=== PATIENT | male | born 1975 | race Caucasian/White ===

== ENCOUNTER 2017-12-03 06:23 | Emergency (ER) | payer OTHER ==
[~2017-12-03] VITALS: Ht 170.2 cm; Wt 62.1 kg
[~2017-12-03 06:23] MED LIST: ACET325 PO; ALPR.5 PO; AMIT10; AMIT50 PO; AMLO10 PO; AMLO5 PO; BELPHEELB PO; BELPHEER PO; BUDESONIDE EC3 MG PO; CARI350 PO; CEPH500 PO; CIPRO500 MG PO; Cleocin HCl300 MG PO; DONNATAL PO; DRON5 PO; ERGO400 PO; Flagyl500 MG PO; Guaifenesin Dm118 ML PO; HYDACE5 PO; HYDMOR2 PO; HYDMOR4 PO; HYDMOR8 PO; Keflex500 MG PO; LISI20 PO; LORA1 PO; LOSA50 PO; MECL25 PO; METR500 PO; MIRT15 PO; NEBI10 PO; Norco 5-325 Ta1 EACH PO; OMEP10ER PO; ONDA4; ONDA4ODT PO; OPANA 10 MG PO; OPANA ER10 MG PO; OXYACE5T PO; OXYMORPHONE HCL10 MG PO; PRED20 PO; PROM25 PO; PROP10 PO; Percocet 5-3251 EACH PO; Prednisone20 MG PO; Prednisone50 MG PO; Pseudoephedrine30 MG PO; QUET25 PO; ROXICODONE5 MG PO; RXHYDMOR2 PO; RXOXYACE PO; Robaxin500 MG PO; TRAM50 PO; TRAZ50 PO; VALS80; [UNRECOGNIZED DRUG - OTHER] PO
[2017-12-03] MEDS ORDERED: OXYMORPHONE HCL5 M1 PO (06:41)
[2017-12-03 06:59] LABS: BASOPHILS ABSOLUTE AUTO 0.05 K/mm3 (0.00-0.23); BASOPHILS PERCENT AUTO 1 % (0-2); EOSINOPHILS ABSOLUTE AUTO 0.84 K/mm3 (0.00-0.68); EOSINOPHILS PERCENT AUTO 8 % (0-6); Hematocrit 31.3 % (37.0-53.0); Hemoglobin 9.1 g/dL (13.5-17.5); IMMATURE GRAN ABSOLUTE AUTO 0.03 K/mm3 (0.00-0.10); IMMATURE GRAN PERCENT AUTO 0 % (0-1); LYMPHOCYTES ABSOLUTE AUTO 2.16 K/mm3 (0.84-5.20); LYMPHOCYTES PERCENT AUTO 21 % (21-46); MONOCYTES ABSOLUTE AUTO 0.81 K/mm3 (0.16-1.47); MONOCYTES PERCENT AUTO 8 % (4-13); Mean Corpuscular HGB 23.8 pg (26.0-34.0); Mean Corpuscular HGB Conc 29.1 g/dL (31.5-36.5); Mean Corpuscular Volume 82 fL (80-100); Mean Platelet Volume 9.3 fL (9.1-12.4); NEUTROPHILS ABSOLUTE AUTO 6.56 K/mm3 (1.96-9.15); NEUTROPHILS PERCENT AUTO 63 % (41-73); Platelet Count 344 K/mm3 (150-400); RDW Coefficient Variation 24.4 % (11.7-14.2); RDW Standard Deviation 69.8 fL (35.1-46.3); Red Blood Cell Count 3.83 M/mm3 (4.30-5.90); White Blood Cell Count 10.45 K/mm3 (4.00-11.30)
[2017-12-03 07:14] LABS: Alanine Aminotransfer (ALT/SGP 17 U/L (12-78); Albumin, Blood 2.4 g/dL (3.4-5.0); Albumin/Globulin Ratio 0.8 (0.8-1.8); Alk Phos 66 U/L (50-136); Anion Gap 6 mmol/L (6-16); Aspartate Aminotrans (AST/SGOT 11 U/L (12-37); Bilirubin, Total 0.3 mg/dL (0.1-1.0); Blood Urea Nitrogen 13 mg/dL (8-24); Bun/Creatinine Ratio 21.8 (12.0-20.0); CO2, Blood 27 mmol/L (21-32); Calcium, Blood 7.3 mg/dL (8.5-10.1); Chloride, Blood 114 mmol/L (98-108); Globulin, Blood 2.9 g/dL (2.2-4.0); Glomerular Filtration Rate >60 (60-); Glucose, Blood 91 mg/dL (70-99); Potassium, Blood 3.6 mmol/L (3.5-5.5); Sodium, Blood 147 mmol/L (136-145); Total Protein, Blood 5.3 g/dL (6.4-8.2)
[2018-09-14] MEDS ORDERED: ALBU90OI61 INH (17:58)
[2018-09-14] MEDS ORDERED: PRED20 PO (17:58)
[2018-09-14] MEDS ORDERED: BENZ100A PO (17:58)
[2018-10-12] MEDS ORDERED: Vibramycin100 MG PO (20:52)
== END 2017-12-03 07:42 | disposition home or self-care (01) ==
LOC: ER 06:23
PROVIDERS: Emergency Medicine
DX: K50.911 Crohn's disease, unspecified, with rectal bleeding (principal); D64.9 Anemia, unspecified; Z88.2 Allergy status to sulfonamides; Z88.8 Allergy status to other drugs, medicaments and biological substances; Z91.09 Other allergy status, other than to drugs and biological substances; Z88.6 Allergy status to analgesic agent; Z79.899 Other long term (current) drug therapy; Z87.891 Personal history of nicotine dependence
CPT/HCPCS: 36415; 80053; 85025; 86850; 86900; 86901; 93005; 93010; 99283

== ENCOUNTER 2017-12-05 16:57 | Inpatient (IN) | payer OTHER ==
[~2017-12-05] VITALS: Ht 170.2 cm; Wt 58.6 kg
[~2017-12-05 16:57] MED LIST changes: +OXYMORPHONE HCL5 M1 PO
[2017-12-05] MEDS ORDERED: CYAN1000I IM (17:06)
[2017-12-05 17:45] LABS: BASOPHILS ABSOLUTE AUTO 0.07 K/mm3 (0.00-0.23); BASOPHILS PERCENT AUTO 1 % (0-2); EOSINOPHILS ABSOLUTE AUTO 0.23 K/mm3 (0.00-0.68); EOSINOPHILS PERCENT AUTO 2 % (0-6); Hematocrit 37.3 % (37.0-53.0); Hemoglobin 11.4 g/dL (13.5-17.5); IMMATURE GRAN ABSOLUTE AUTO 0.03 K/mm3 (0.00-0.10); IMMATURE GRAN PERCENT AUTO 0 % (0-1); LYMPHOCYTES ABSOLUTE AUTO 1.47 K/mm3 (0.84-5.20); LYMPHOCYTES PERCENT AUTO 14 % (21-46); MONOCYTES ABSOLUTE AUTO 0.61 K/mm3 (0.16-1.47); MONOCYTES PERCENT AUTO 6 % (4-13); Mean Corpuscular HGB 24.2 pg (26.0-34.0); Mean Corpuscular HGB Conc 30.6 g/dL (31.5-36.5); Mean Platelet Volume 9.7 fL (9.1-12.4); NEUTROPHILS ABSOLUTE AUTO 8.23 K/mm3 (1.96-9.15); NEUTROPHILS PERCENT AUTO 77 % (41-73); Platelet Count 491 K/mm3 (150-400); RDW Coefficient Variation 25.6 % (11.7-14.2); RDW Standard Deviation 72.3 fL (35.1-46.3); Red Blood Cell Count 4.72 M/mm3 (4.30-5.90); White Blood Cell Count 10.64 K/mm3 (4.00-11.30)
[2017-12-05 17:47] LABS: Mean Corpuscular Volume 79 fL (80-100)
[2017-12-05 17:55] LABS: Alanine Aminotransfer (ALT/SGP 23 U/L (12-78); Albumin, Blood 2.8 g/dL (3.4-5.0); Albumin/Globulin Ratio 0.8 (0.8-1.8); Alk Phos 98 U/L (50-136); Anion Gap 6 mmol/L (6-16); Aspartate Aminotrans (AST/SGOT 15 U/L (12-37); Bilirubin, Total 0.2 mg/dL (0.1-1.0); Blood Urea Nitrogen 10 mg/dL (8-24); Bun/Creatinine Ratio 16.9 (12.0-20.0); CO2, Blood 28 mmol/L (21-32); Calcium, Blood 8.3 mg/dL (8.5-10.1); Chloride, Blood 106 mmol/L (98-108); Creatinine, Blood 0.59 mg/dL (0.60-1.20); Globulin, Blood 3.5 g/dL (2.2-4.0); Glomerular Filtration Rate >60 (60-); Glucose, Blood 108 mg/dL (70-99); Potassium, Blood 3.7 mmol/L (3.5-5.5); Sodium, Blood 140 mmol/L (136-145); Total Protein, Blood 6.3 g/dL (6.4-8.2)
[2017-12-05 18:23] LABS: Source, Urine Clean Catch
[2017-12-05 18:29] LABS: Bilirubin, Urine Neg (Neg); Blood, Urine Neg (Neg); Glucose Qualitative, Urine Neg (Neg); Ketones, Urine Neg (Neg); Leukocyte Esterase, Urine Neg (Neg); Nitrite, Urine Neg (Neg); Protein, Urine Neg (Neg); Specific Gravity, Urine 1.025 (1.003-1.022); Urobilinogen, Urine NORM (Normal)
[2017-12-05 18:58] LABS: Appearance, Urine Clear (Clear); Color, Urine Yellow (P-Yellow)
[2017-12-06 05:04] LABS: BASOPHILS ABSOLUTE AUTO 0.04 K/mm3 (0.00-0.23); BASOPHILS PERCENT AUTO 1 % (0-2); EOSINOPHILS ABSOLUTE AUTO 0.24 K/mm3 (0.00-0.68); EOSINOPHILS PERCENT AUTO 3 % (0-6); Hematocrit 33.8 % (37.0-53.0); Hemoglobin 10.1 g/dL (13.5-17.5); IMMATURE GRAN ABSOLUTE AUTO 0.01 K/mm3 (0.00-0.10); IMMATURE GRAN PERCENT AUTO 0 % (0-1); LYMPHOCYTES ABSOLUTE AUTO 1.63 K/mm3 (0.84-5.20); LYMPHOCYTES PERCENT AUTO 19 % (21-46); MONOCYTES ABSOLUTE AUTO 0.68 K/mm3 (0.16-1.47); MONOCYTES PERCENT AUTO 8 % (4-13); Mean Corpuscular HGB 24.2 pg (26.0-34.0); Mean Corpuscular HGB Conc 29.9 g/dL (31.5-36.5); Mean Corpuscular Volume 81 fL (80-100); Mean Platelet Volume 9.4 fL (9.1-12.4); NEUTROPHILS ABSOLUTE AUTO 6.04 K/mm3 (1.96-9.15); NEUTROPHILS PERCENT AUTO 70 % (41-73); Platelet Count 371 K/mm3 (150-400); RDW Coefficient Variation 25.7 % (11.7-14.2); RDW Standard Deviation 73.5 fL (35.1-46.3); Red Blood Cell Count 4.18 M/mm3 (4.30-5.90); White Blood Cell Count 8.64 K/mm3 (4.00-11.30)
[2017-12-06] MEDS ORDERED: Inderal 20 mg T20 MG PO (05:19)
[2017-12-06 05:28] LABS: Alanine Aminotransfer (ALT/SGP 16 U/L (12-78); Albumin, Blood 2.3 g/dL (3.4-5.0); Albumin/Globulin Ratio 0.8 (0.8-1.8); Alk Phos 82 U/L (50-136); Anion Gap 5 mmol/L (6-16); Aspartate Aminotrans (AST/SGOT 10 U/L (12-37); Bilirubin, Total 0.2 mg/dL (0.1-1.0); Blood Urea Nitrogen 7 mg/dL (8-24); Bun/Creatinine Ratio 13.1 (12.0-20.0); CO2, Blood 26 mmol/L (21-32); Calcium, Blood 7.6 mg/dL (8.5-10.1); Chloride, Blood 110 mmol/L (98-108); Creatinine, Blood 0.54 mg/dL (0.60-1.20); Glomerular Filtration Rate >60 (60-); Glucose, Blood 87 mg/dL (70-99); Potassium, Blood 3.6 mmol/L (3.5-5.5); Sodium, Blood 141 mmol/L (136-145); Total Protein, Blood 5.3 g/dL (6.4-8.2)
[2017-12-06] MEDS ORDERED: VALS80 PO (14:57)
[2017-12-07 04:59] LABS: Hematocrit 37.1 % (37.0-53.0); Hemoglobin 11.1 g/dL (13.5-17.5); Mean Corpuscular HGB 24.1 pg (26.0-34.0); Mean Corpuscular HGB Conc 29.9 g/dL (31.5-36.5); Mean Corpuscular Volume 81 fL (80-100); Mean Platelet Volume 9.8 fL (9.1-12.4); Platelet Count 411 K/mm3 (150-400); RDW Coefficient Variation 25.3 % (11.7-14.2); RDW Standard Deviation 71.9 fL (35.1-46.3)
[2017-12-07 05:14] LABS: Anion Gap 7 mmol/L (6-16); Blood Urea Nitrogen 9 mg/dL (8-24); Bun/Creatinine Ratio 17.4 (12.0-20.0); CO2, Blood 27 mmol/L (21-32); Calcium, Blood 7.8 mg/dL (8.5-10.1); Chloride, Blood 107 mmol/L (98-108); Creatinine, Blood 0.52 mg/dL (0.60-1.20); Glomerular Filtration Rate >60 (60-); Glucose, Blood 116 mg/dL (70-99); Potassium, Blood 4.3 mmol/L (3.5-5.5); Sodium, Blood 141 mmol/L (136-145)
[2017-12-08 04:50] LABS: Hematocrit 40.6 % (37.0-53.0); Hemoglobin 12.4 g/dL (13.5-17.5); Mean Corpuscular HGB 24.1 pg (26.0-34.0); Mean Corpuscular HGB Conc 30.5 g/dL (31.5-36.5); Mean Corpuscular Volume 79 fL (80-100); Mean Platelet Volume 9.9 fL (9.1-12.4); Platelet Count 497 K/mm3 (150-400); RDW Coefficient Variation 25.9 % (11.7-14.2); RDW Standard Deviation 72.7 fL (35.1-46.3); Red Blood Cell Count 5.15 M/mm3 (4.30-5.90)
[2017-12-08 05:04] LABS: Anion Gap 6 mmol/L (6-16); Blood Urea Nitrogen 16 mg/dL (8-24); Bun/Creatinine Ratio 22.9 (12.0-20.0); CO2, Blood 27 mmol/L (21-32); Calcium, Blood 8.4 mg/dL (8.5-10.1); Chloride, Blood 106 mmol/L (98-108); Glomerular Filtration Rate >60 (60-); Glucose, Blood 137 mg/dL (70-99); Potassium, Blood 4.5 mmol/L (3.5-5.5); Sodium, Blood 139 mmol/L (136-145)
[2017-12-10 04:44] LABS: Hematocrit 36.8 % (37.0-53.0); Hemoglobin 11.1 g/dL (13.5-17.5); Mean Corpuscular HGB 24.3 pg (26.0-34.0); Mean Corpuscular HGB Conc 30.2 g/dL (31.5-36.5); Mean Corpuscular Volume 81 fL (80-100); Mean Platelet Volume 9.5 fL (9.1-12.4); Platelet Count 358 K/mm3 (150-400); RDW Coefficient Variation 26.2 % (11.7-14.2); RDW Standard Deviation 74.4 fL (35.1-46.3); Red Blood Cell Count 4.57 M/mm3 (4.30-5.90); White Blood Cell Count 9.72 K/mm3 (4.00-11.30)
[2017-12-10 05:22] LABS: Anion Gap 5 mmol/L (6-16); Blood Urea Nitrogen 12 mg/dL (8-24); Bun/Creatinine Ratio 21.3 (12.0-20.0); CO2, Blood 31 mmol/L (21-32); Calcium, Blood 8.2 mg/dL (8.5-10.1); Chloride, Blood 106 mmol/L (98-108); Creatinine, Blood 0.56 mg/dL (0.60-1.20); Glomerular Filtration Rate >60 (60-); Glucose, Blood 114 mg/dL (70-99); Potassium, Blood 4.5 mmol/L (3.5-5.5); Sodium, Blood 142 mmol/L (136-145)
[2017-12-14 05:18] LABS: Hemoglobin 10.9 g/dL (13.5-17.5); Mean Corpuscular HGB 24.6 pg (26.0-34.0); Mean Corpuscular HGB Conc 30.3 g/dL (31.5-36.5); Mean Corpuscular Volume 81 fL (80-100); Mean Platelet Volume 10.2 fL (9.1-12.4); Platelet Count 427 K/mm3 (150-400); RDW Coefficient Variation 27.8 % (11.7-14.2); RDW Standard Deviation 76.6 fL (35.1-46.3); Red Blood Cell Count 4.43 M/mm3 (4.30-5.90); White Blood Cell Count 13.45 K/mm3 (4.00-11.30)
[2017-12-14 05:35] LABS: Anion Gap 7 mmol/L (6-16); Blood Urea Nitrogen 21 mg/dL (8-24); CO2, Blood 32 mmol/L (21-32); Calcium, Blood 8.6 mg/dL (8.5-10.1); Chloride, Blood 102 mmol/L (98-108); Creatinine, Blood 0.54 mg/dL (0.60-1.20); Glomerular Filtration Rate >60 (60-); Glucose, Blood 119 mg/dL (70-99); Magnesium, Blood 2.7 mg/dL (1.6-2.4); Phosphorus, Blood 3.5 mg/dL (2.5-4.9); Potassium, Blood 3.6 mmol/L (3.5-5.5); Sodium, Blood 141 mmol/L (136-145)
[2017-12-14] MEDS ORDERED: HYDMOR4 PO (10:28)
[2017-12-14] MEDS ORDERED: ACET325 PO (10:29)
[2017-12-14] MEDS ORDERED: PRED10 PO (10:31)
[2017-12-14] MEDS ORDERED: PANT40 PO (10:31)
[2018-09-14] MEDS ORDERED: PRED20 PO (17:58)
[2018-09-14] MEDS ORDERED: BENZ100A PO (17:58)
[2018-09-14] MEDS ORDERED: ALBU90OI61 INH (17:58)
[2018-10-12] MEDS ORDERED: Vibramycin100 MG PO (20:52)
== END 2017-12-14 11:18 | disposition home or self-care (01) | DRG 387 ==
LOC: ER 16:57 → MEDS 21:26 → ERHOLD 21:26 → MEDS 12-06 13:40 → ENPENDDIS 12-14 09:50 → MEDS 12-14 11:18
PROVIDERS: Emergency Medicine; Internal Medicine
PROC: 3E0234Z Introduction of Serum, Toxoid and Vaccine into Muscle, Percutaneous Approach (ICD-10-PCS; 2017-12-06)
PROC: 3E0336Z Introduction of Nutritional Substance into Peripheral Vein, Percutaneous Approach (ICD-10-PCS; principal; 2017-12-10)
DX: K50.80 Crohn's disease of both small and large intestine without complications (principal); D50.9 Iron deficiency anemia, unspecified; D63.8 Anemia in other chronic diseases classified elsewhere; E86.0 Dehydration; G89.29 Other chronic pain; Z23 Encounter for immunization; I10 Essential (primary) hypertension; K21.9 Gastro-esophageal reflux disease without esophagitis; F41.9 Anxiety disorder, unspecified; D72.829 Elevated white blood cell count, unspecified; T38.0X5A Adverse effect of glucocorticoids and synthetic analogues, initial encounter; K64.9 Unspecified hemorrhoids
CPT/HCPCS: 36415; 74176; 80048; 80053; 81003; 82947; 83690; 83735; 84100; 84145; 85025; 85027; 85651; 86140; 96372; 96374; 96375; 96376; 99285; J0744; J1170; J1650; J2405; J2920; J3010; J3420; J7030; Q2038

== ENCOUNTER 2018-07-01 21:21 | Emergency (ER) | payer OTHER ==
[~2018-07-01] VITALS: Ht 170.2 cm; Wt 59.0 kg
[~2018-07-01 21:21] MED LIST changes: +CYAN1000I IM; +Inderal 20 mg T20 MG PO; +PANT40 PO; +PRED10 PO; +VALS80 PO
[2018-07-01] MEDS ORDERED: Inderal40 MG (22:38)
[2018-07-01] MEDS ORDERED: ALPR.5 PO (22:38)
[2018-07-01] MEDS ORDERED: OXYMORPHONE HCL5 MG PO (22:39)
[2018-07-01] MEDS ORDERED: DRON5 PO (22:39)
[2018-07-01] MEDS ORDERED: Prednisone20 MG PO (23:45)
[2018-07-01] MEDS ORDERED: Permethrin60 GM TOP (23:49)
== END 2018-07-01 23:53 | disposition home or self-care (01) ==
LOC: ER 21:21
DX: R21 Rash and other nonspecific skin eruption (principal); G43.909 Migraine, unspecified, not intractable, without status migrainosus; I10 Essential (primary) hypertension; K21.9 Gastro-esophageal reflux disease without esophagitis; D64.9 Anemia, unspecified; Z88.8 Allergy status to other drugs, medicaments and biological substances; Z88.2 Allergy status to sulfonamides; Z88.6 Allergy status to analgesic agent; Z79.899 Other long term (current) drug therapy; Z87.891 Personal history of nicotine dependence
CPT/HCPCS: 99283

== ENCOUNTER 2018-07-13 17:14 | Emergency (ER) | payer OTHER ==
[~2018-07-13] VITALS: Ht 170.2 cm; Wt 61.2 kg
[~2018-07-13 17:14] MED LIST changes: +Inderal40 MG; +OXYMORPHONE HCL5 MG PO; +Permethrin60 GM TOP
== END 2018-07-14 00:41 | disposition home or self-care (01) ==
LOC: ER 17:14
DX: R51 Headache (principal); I10 Essential (primary) hypertension; K21.9 Gastro-esophageal reflux disease without esophagitis; D64.9 Anemia, unspecified; Z88.8 Allergy status to other drugs, medicaments and biological substances; Z88.2 Allergy status to sulfonamides; Z91.048 Other nonmedicinal substance allergy status; Z88.5 Allergy status to narcotic agent; Z79.899 Other long term (current) drug therapy; Z87.891 Personal history of nicotine dependence
CPT/HCPCS: 96374; 96375; 99283-25; J0780; J1100; J1200

== ENCOUNTER → 2018-12-08 | Outpatient (CLI) | payer OTHER ==
[~2018-12-08] MED LIST changes: +ALBU90OI61 INH; +BENZ100A PO; +Vibramycin100 MG PO
[2018-12-08 18:28] LABS: U Benzodiazapine Screen DETECTED; U Cannabinoids Screen DETECTED; U Opiates Screen DETECTED; U Oxycodone Screen DETECTED
[2018-12-08 18:29] LABS: U Amphetamine Screen Not Detected; U Barbituate Screen Not Detected; U Buprenorphine Screen Not Detected; U Cocaine Screen Not Detected; U Methadone Screen Not Detected; U Methamphetamine Screen Not Detected; U Phencyclidine Screen Not Detected; U Propoxyphene Screen Not Detected
== END | disposition home or self-care (01) ==
LOC: LAB 16:06 → LAB SHORT 16:06
PROVIDERS: Internal Medicine Hematology & Oncology
DX: F11.20 Opioid dependence, uncomplicated (principal)
CPT/HCPCS: G0480

== ENCOUNTER 2019-02-14 17:01 | Emergency (ER) | payer OTHER ==
[~2019-02-14] VITALS: Ht 170.2 cm; Wt 56.7 kg
[2019-02-14 17:32] LABS: BASOPHILS ABSOLUTE AUTO 0.04 K/mm3 (0.00-0.23); BASOPHILS PERCENT AUTO 0 % (0-2); EOSINOPHILS ABSOLUTE AUTO 0.21 K/mm3 (0.00-0.68); EOSINOPHILS PERCENT AUTO 2 % (0-6); Hematocrit 39.1 % (37.0-53.0); Hemoglobin 11.4 g/dL (13.5-17.5); IMMATURE GRAN ABSOLUTE AUTO 0.05 K/mm3 (0.00-0.10); IMMATURE GRAN PERCENT AUTO 1 % (0-1); LYMPHOCYTES ABSOLUTE AUTO 1.66 K/mm3 (0.84-5.20); LYMPHOCYTES PERCENT AUTO 16 % (21-46); MONOCYTES ABSOLUTE AUTO 0.65 K/mm3 (0.16-1.47); MONOCYTES PERCENT AUTO 6 % (4-13); Mean Corpuscular HGB 24.4 pg (26.0-34.0); Mean Corpuscular HGB Conc 29.2 g/dL (31.5-36.5); Mean Corpuscular Volume 84 fL (80-100); Mean Platelet Volume 9.1 fL (9.1-12.4); NEUTROPHILS ABSOLUTE AUTO 7.96 K/mm3 (1.96-9.15); NEUTROPHILS PERCENT AUTO 75 % (41-73); Platelet Count 470 K/mm3 (150-400); RDW Coefficient Variation 24.3 % (11.7-14.2); RDW Standard Deviation 72.5 fL (35.1-46.3); Red Blood Cell Count 4.67 M/mm3 (4.30-5.90); White Blood Cell Count 10.57 K/mm3 (4.00-11.30)
[2019-02-14 18:03] LABS: Alanine Aminotransfer (ALT/SGP 17 U/L (12-78); Albumin, Blood 2.7 g/dL (3.4-5.0); Albumin/Globulin Ratio 0.8 (0.8-1.8); Alk Phos 75 U/L (50-136); Anion Gap 4 mmol/L (6-16); Aspartate Aminotrans (AST/SGOT 14 U/L (12-37); Bilirubin, Total <0.1 mg/dL (0.1-1.0); Blood Urea Nitrogen 9 mg/dL (8-24); Bun/Creatinine Ratio 11.2 (12.0-20.0); CO2, Blood 30 mmol/L (21-32); Calcium, Blood 8.2 mg/dL (8.5-10.1); Chloride, Blood 111 mmol/L (98-108); Globulin, Blood 3.4 g/dL (2.2-4.0); Glomerular Filtration Rate >60 (60-); Glucose, Blood 67 mg/dL (70-99); Potassium, Blood 3.9 mmol/L (3.5-5.5); Sodium, Blood 145 mmol/L (136-145); Total Protein, Blood 6.1 g/dL (6.4-8.2)
[2019-02-14 20:00] LABS: Source, Urine Clean Catch
[2019-02-14 20:02] LABS: Appearance, Urine Clear (Clear); Bilirubin, Urine Neg (Neg); Blood, Urine 2+ (Neg); Color, Urine Yellow (P-Yellow); Glucose Qualitative, Urine Neg (Neg); Ketones, Urine 1+ (Neg); Leukocyte Esterase, Urine 1+ (Neg); Nitrite, Urine Neg (Neg); Protein, Urine 2+ (Neg); Specific Gravity, Urine 1.025 (1.003-1.022); Urobilinogen, Urine 1+ (Normal)
[2019-02-14 20:10] LABS: Bacteria Many /hpf; Mucus Heavy (0-Heavy); Squamous Epithelial Cells Not Seen /hpf (Few)
[2019-02-14] MEDS ORDERED: Bentyl20 MG PO (23:25)
== END 2019-02-14 23:32 | disposition home or self-care (01) ==
LOC: ER 17:01
PROVIDERS: Physician Assistant
DX: K50.90 Crohn's disease, unspecified, without complications (principal); Z87.891 Personal history of nicotine dependence; Z88.2 Allergy status to sulfonamides; Z88.8 Allergy status to other drugs, medicaments and biological substances; Z88.6 Allergy status to analgesic agent; Z79.899 Other long term (current) drug therapy; G43.909 Migraine, unspecified, not intractable, without status migrainosus
CPT/HCPCS: 36415; 74018; 80053; 81001; 83690; 85025; 87086; 96361; 96374; 96375; 99284-25; J2405; J2550; J7120

== ENCOUNTER 2019-04-19 18:59 | Emergency (ER) | payer OTHER ==
[~2019-04-19 18:59] MED LIST changes: +Bentyl20 MG PO
== END 2019-04-19 19:21 | disposition left against medical advice (07) ==
LOC: ER 18:59
DX: Z53.21 Procedure and treatment not carried out due to patient leaving prior to being seen by health care provider (principal)

== ENCOUNTER → 2019-06-08 | Outpatient (CLI) | payer OTHER ==
[~2019-06-08] MED LIST changes: +ACETAMINOPHEN500 MG PO; +ASCO500 PO; +CEPACOL SORE T1 EACH MM; +CLOT10 SS; +Diovan160 MG PO; +FERSU300 PO; -Inderal40 MG; +Inderal40 MG PO; +LACT PO; +MELA3 PO; +ONDA4 PO; +PROAIR RESPICL90 MCG INH; +PSEU120ER PO; +Prednisone10 MG PO; +Protonix40 MG PO; +TAMS.4ER PO; +Zofran4 MG PO
[2019-06-08 11:56] LABS: Protein, Urine Quantitative 43.3 mg/dL (0.0-11.9)
[2019-06-08 11:59] LABS: Microalbumin, Urine Quant. 9.94 mg/L (0.000-20.000)
== END | disposition home or self-care (01) ==
LOC: LAB 09:00 → LAB SHORT 09:00 → LAB FUT 06-05 17:00
PROVIDERS: Internal Medicine Nephrology
DX: E55.9 Vitamin D deficiency, unspecified (principal); N18.2 Chronic kidney disease, stage 2 (mild); D63.1 Anemia in chronic kidney disease; N25.81 Secondary hyperparathyroidism of renal origin; R76.9 Abnormal immunological finding in serum, unspecified; R94.5 Abnormal results of liver function studies; R94.6 Abnormal results of thyroid function studies; G60.9 Hereditary and idiopathic neuropathy, unspecified
CPT/HCPCS: 81050; 82043; 82570; 84156

== ENCOUNTER 2019-06-15 12:53 | Emergency (ER) | payer OTHER ==
[~2019-06-15] VITALS: Ht 170.2 cm; Wt 68.0 kg
[~2019-06-15 12:53] MED LIST changes: -ACETAMINOPHEN500 MG PO; -ASCO500 PO; -CEPACOL SORE T1 EACH MM; -CLOT10 SS; -FERSU300 PO; -LACT PO; -MELA3 PO; -ONDA4 PO; -PROAIR RESPICL90 MCG INH; -PSEU120ER PO; -Prednisone10 MG PO; -Protonix40 MG PO; -TAMS.4ER PO; -VALS80 PO; -Zofran4 MG PO
[2019-06-15] MEDS ORDERED: TRAZ50 PO (13:11)
[2019-06-15] MEDS ORDERED: TAMS.4ER PO ×2 (13:12)
[2019-06-15] MEDS ORDERED: PSEU120ER PO (13:12)
== END 2019-06-15 15:12 | disposition home or self-care (01) ==
LOC: ER 12:53
DX: G43.109 Migraine with aura, not intractable, without status migrainosus (principal); Z88.2 Allergy status to sulfonamides; Z88.8 Allergy status to other drugs, medicaments and biological substances; Z88.6 Allergy status to analgesic agent; Z79.899 Other long term (current) drug therapy; I10 Essential (primary) hypertension; K21.9 Gastro-esophageal reflux disease without esophagitis; D64.9 Anemia, unspecified; G43.909 Migraine, unspecified, not intractable, without status migrainosus; Z87.891 Personal history of nicotine dependence
CPT/HCPCS: 96361; 96374; 96375; 99283-25; J0780; J1200; J1630; J3010; J7030

== ENCOUNTER 2019-08-05 18:38 | Emergency (ER) | payer OTHER ==
[~2019-08-05] VITALS: Ht 170.2 cm; Wt 56.7 kg
[~2019-08-05 18:38] MED LIST changes: +PSEU120ER PO; +TAMS.4ER PO
[2019-08-05 19:32] LABS: BASOPHILS ABSOLUTE AUTO 0.07 K/mm3 (0.00-0.23); BASOPHILS PERCENT AUTO 1 % (0-2); EOSINOPHILS ABSOLUTE AUTO 0.73 K/mm3 (0.00-0.68); EOSINOPHILS PERCENT AUTO 6 % (0-6); Hematocrit 34.2 % (37.0-53.0); Hemoglobin 10.6 g/dL (13.5-17.5); IMMATURE GRAN ABSOLUTE AUTO 0.04 K/mm3 (0.00-0.10); IMMATURE GRAN PERCENT AUTO 0 % (0-1); LYMPHOCYTES ABSOLUTE AUTO 2.01 K/mm3 (0.84-5.20); LYMPHOCYTES PERCENT AUTO 17 % (21-46); MONOCYTES ABSOLUTE AUTO 0.79 K/mm3 (0.16-1.47); MONOCYTES PERCENT AUTO 7 % (4-13); Mean Corpuscular Volume 93 fL (80-100); Mean Platelet Volume 8.6 fL (9.1-12.4); NEUTROPHILS ABSOLUTE AUTO 7.88 K/mm3 (1.96-9.15); NEUTROPHILS PERCENT AUTO 69 % (41-73); Platelet Count 589 K/mm3 (150-400); RDW Coefficient Variation 15.8 % (11.7-14.2); RDW Standard Deviation 54.2 fL (35.1-46.3); Red Blood Cell Count 3.66 M/mm3 (4.30-5.90); White Blood Cell Count 11.52 K/mm3 (4.00-11.30)
[2019-08-05 20:06] LABS: Alanine Aminotransfer (ALT/SGP 15 U/L (12-78); Albumin/Globulin Ratio 0.6 (0.8-1.8); Alk Phos 75 U/L (50-136); Anion Gap 5 mmol/L (6-16); Aspartate Aminotrans (AST/SGOT 12 U/L (12-37); Bilirubin, Total 0.1 mg/dL (0.1-1.0); Blood Urea Nitrogen 11 mg/dL (8-24); Bun/Creatinine Ratio 17.8 (12.0-20.0); CO2, Blood 27 mmol/L (21-32); Calcium, Blood 8.1 mg/dL (8.5-10.1); Chloride, Blood 112 mmol/L (98-108); Creatinine, Blood 0.62 mg/dL (0.60-1.20); Globulin, Blood 3.4 g/dL (2.2-4.0); Glomerular Filtration Rate >60 (60-); Glucose, Blood 148 mg/dL (70-99); Potassium, Blood 3.5 mmol/L (3.5-5.5); Sodium, Blood 144 mmol/L (136-145); Total Protein, Blood 5.4 g/dL (6.4-8.2)
[2019-08-05] MEDS ORDERED: ACETAMINOPHEN500 MG PO (21:12)
== END 2019-08-05 21:31 | disposition home or self-care (01) ==
LOC: ER 18:38
PROVIDERS: Emergency Medicine
DX: M79.661 Pain in right lower leg (principal); G43.909 Migraine, unspecified, not intractable, without status migrainosus; M81.0 Age-related osteoporosis without current pathological fracture; G89.29 Other chronic pain; M54.9 Dorsalgia, unspecified; Z88.2 Allergy status to sulfonamides; Z88.8 Allergy status to other drugs, medicaments and biological substances; Z91.048 Other nonmedicinal substance allergy status; Z79.899 Other long term (current) drug therapy
CPT/HCPCS: 71046; 80053; 85025; 93971; 99284-25

== ENCOUNTER 2019-09-07 17:10 | Inpatient (IN) | payer OTHER ==
[~2019-09-07] VITALS: Ht 170.2 cm; Wt 59.0 kg
[~2019-09-07 17:10] MED LIST changes: +ACETAMINOPHEN500 MG PO
[2019-09-07 18:32] LABS: BASOPHILS ABSOLUTE AUTO 0.06 K/mm3 (0.00-0.23); BASOPHILS PERCENT AUTO 0 % (0-2); EOSINOPHILS ABSOLUTE AUTO 0.21 K/mm3 (0.00-0.68); EOSINOPHILS PERCENT AUTO 1 % (0-6); Hematocrit 40.6 % (37.0-53.0); Hemoglobin 12.6 g/dL (13.5-17.5); IMMATURE GRAN PERCENT AUTO 1 % (0-1); LYMPHOCYTES ABSOLUTE AUTO 1.74 K/mm3 (0.84-5.20); LYMPHOCYTES PERCENT AUTO 9 % (21-46); MONOCYTES ABSOLUTE AUTO 1.28 K/mm3 (0.16-1.47); MONOCYTES PERCENT AUTO 7 % (4-13); Mean Corpuscular HGB 28.4 pg (26.0-34.0); Mean Corpuscular Volume 91 fL (80-100); Mean Platelet Volume 9.2 fL (9.1-12.4); NEUTROPHILS ABSOLUTE AUTO 15.88 K/mm3 (1.96-9.15); NEUTROPHILS PERCENT AUTO 83 % (41-73); Platelet Count 652 K/mm3 (150-400); RDW Coefficient Variation 17.1 % (11.7-14.2); RDW Standard Deviation 56.5 fL (35.1-46.3); Red Blood Cell Count 4.44 M/mm3 (4.30-5.90); White Blood Cell Count 19.27 K/mm3 (4.00-11.30)
[2019-09-07 18:54] LABS: Alanine Aminotransfer (ALT/SGP 16 U/L (12-78); Albumin, Blood 3.2 g/dL (3.4-5.0); Albumin/Globulin Ratio 0.9 (0.8-1.8); Alk Phos 77 U/L (50-136); Anion Gap 6 mmol/L (6-16); Aspartate Aminotrans (AST/SGOT 6 U/L (12-37); Bilirubin, Total 0.1 mg/dL (0.1-1.0); Blood Urea Nitrogen 12 mg/dL (8-24); Bun/Creatinine Ratio 18.4 (12.0-20.0); CO2, Blood 24 mmol/L (21-32); Calcium, Blood 8.8 mg/dL (8.5-10.1); Chloride, Blood 111 mmol/L (98-108); Creatinine, Blood 0.65 mg/dL (0.60-1.20); Globulin, Blood 3.5 g/dL (2.2-4.0); Glomerular Filtration Rate >60 (60-); Glucose, Blood 90 mg/dL (70-99); Potassium, Blood 3.9 mmol/L (3.5-5.5); Sodium, Blood 141 mmol/L (136-145); Total Protein, Blood 6.7 g/dL (6.4-8.2)
[2019-09-07 20:18] LABS: Source, Urine Clean Catch
[2019-09-07 20:19] LABS: Bilirubin, Urine Neg (Neg); Blood, Urine Neg (Neg); Glucose Qualitative, Urine Neg (Neg); Ketones, Urine 1+ (Neg); Leukocyte Esterase, Urine Neg (Neg); Nitrite, Urine Neg (Neg); Protein, Urine Neg (Neg); Specific Gravity, Urine 1.025 (1.003-1.022); Urobilinogen, Urine NORM (Normal)
[2019-09-07 20:31] LABS: Appearance, Urine Clear (Clear); Color, Urine Yellow (P-Yellow)
[2019-09-07] MEDS ORDERED: VALS80 PO (22:16)
[2019-09-07] MEDS ORDERED: CYAN1000I IM (22:18)
[2019-09-07] MEDS ORDERED: Zofran4 MG PO (22:19)
[2019-09-07] MEDS ORDERED: Protonix40 MG PO (22:20)
[2019-09-07] MEDS ORDERED: OXYMORPHONE HCL5 MG PO (22:23)
--- NOTE | 2019-09-08 08:26 | NUR ---
PT ARRIVED TO THE ROOM AT APPROXIMATELY 0810. PT ALERT AND ORIENTED, INDEPENDENT IN THE ROOM. FAMILY AT THE BEDSIDE. PT REPORTED PAIN AT 9/10 AND WAS GIVEN DILAUDID. PT PROVIDED WITH BLOOD PRESSURE MEDICATION. PROPRANOLOL HELD FOR HR LESS THAN 60, PT REPORTS NORMAL HR BETWEEN 70 AND 80. WILL CONTINUE TO MONITOR.
[2019-09-08] MEDS ORDERED: PROAIR RESPICL90 MCG INH (08:46)
--- NOTE | 2019-09-08 09:32 | NUR ---
DR. LANGFORD ROUNDED ON PT THIS AM. DISCUSSED WITH HER PT'S HOME MEDICATIONS, WHICH HAVE BEEN ORDERED. DISCUSSED IRON INFUSIONS FOR IRON DEFICIENCY ANEMIA, PT REPORTS HE IS DUE FOR AN INFUSION ON SATURDAY, DR. LANGFORD NOTIFIED. PT HAS BEEN HYPERTENSIVE, PRN MEDICATION ORDERED BY DR. LANGFORD. PT MAY USE HIS HOME PAIN MEDICATION IF FAMILY BRINGS IN.
--- NOTE | 2019-09-08 13:45 | NUR ---
PT REPORTED FRUSTRATION THAT HE IS NOT COMFORTABLE. WHEN ASKED WHAT COULD BE DONE TO INCREASE COMFORT PT REPORTS HE HAS ASKED MULTIPLE TIMES BUT FAILS TO TELL THIS RN WHAT HE FEELS WOULD MAKE HIM MORE COMFORTABLE. PT'S REPORTS THAT PT WOULD LIKE TO HAVE INCREASED DILAUDID DOSAGE AND NOT TAKE ROUTINE HOME MEDICATION. PT REPORTS THAT HE HAS TAKEN HIS HOME MEDICATION HERE BEFORE AND THE PHARMACY LOST IT SO HE DOES NOT WANT TO BRING IT IN. DR. LANGFORD NOTIFIED OF PT REQUEST, NO NEW ORDERS REGARDING PAIN MEDICATION AT THIS TIME. ATTEMPTED TO EXPLAIN TO PT THAT TAKING ROUTINE HOME MEDICATION WOULD BETTER MANAGE PAIN, AND IV PAIN MEDICATION COULD BE GIVEN FOR BREATHROUGH PAIN. PT REPORTED FRUSTRATION WITH TAKING 2 KINDS OF PAIN MEDICATION AND DOSE NOT WISH TO TAKE HOME PO MEDICATION. PT ALSO REPORTED ANXIETY BUT DENIES WANTING ONE TIME ADDITIONAL TRAZODONE ORDER. PALLIATIVE CARE ORDER PLACED FOR AROMA THERAPY TO HELP MANAGE ANXIETY, PT REPORTS THIS HELPS AT HOME. PT OFFERED PT ADVOCATE AND DECLINED. WILL CONTINUE TO MONITOR.
--- NOTE | 2019-09-08 14:49 | NUR ---
DR. LANGFORD NOTIFIED THAT PT REPORTS DISCOMFORT IN IS THROAT AND HAS A HISTORY OF ESOPHAGEAL ESOPHOGITIS. PT HAS CEPACHOL LOZENGES FOR THROAT DISCOMFORT, PT HAS NOT TRIED THEM YET. PT REPORTS INCREASED PAIN TO HIS LEFT LOWER QUADRANT AND DIFFICULTY TAKING A DEEP BREATH RELATED TO INCREASED PAIN. PT IS RESTING IN BED WITHOUT INCREASED SIGNS OF PAIN. NO NEW PAIN MANAGEMENT ORDERS AT THIS TIME. PT REMAINS AGGITATED REGARDING CARE. FREQUENT ATTEMPTS MADE TO [place] AND ADDRESS CONCERNS. PT REPORTS TAKING 350MG OF SIMETHICONE AT HOME, DR. LANGFORD NOTIFIED. WILL CONTINUE TO MONITOR FOR CHANGES AND ADDRESS PT'S CONCERNS REGARDING CARE.
--- NOTE | 2019-09-08 16:00 | NUR ---
PT APPEARS TO BE INCREASINGLY FRUSTRATED/ANXIOUS ABOUT CARE. RANDI RN NOTIFIED OF PT'S CONCERNS/QUESTIONS WELL ANXIETY ABOUT CARE. RANDI RN ROUNDED ON PT.
--- NOTE | 2019-09-08 16:28 | NUR ---
STAFF REFERRAL RECEIVED FOR AROMATHERAPY PER RN/PT REQUEST DUE TO INCREASED ANXIETY. PT REPORTED USING AROMATHERAPY FOR ANXIETY AT HOME WITH SOME BENEFIT. SHORT VISIT MADE TO PT WELL KNOWN TO ME FROM PREVIOUS ADMISSIONS. PT IS TEARFUL, EXPRESSING FRUSTRATION TO HIS RN RE: S/S AND ILLNESS. RN HAS BEEN IN CLOSE CONTACT WITH DR REGARDING PT'S REQUESTS. PT VERBALIZED GROWING ANXIETY AND FEAR RELATED TO "BEING SICK AGAIN". PT'S , KARLO AT BEDSIDE. THEY INQUIRED RE: AVAILABLITY OF SERVICE ANIMALS TO HELP WITH ANXIETY. PT HAD A WASH OIL PUMP OPERATOR ANIMAL/CAT THAT DISAPPEARED AND HE CONT TO GRIEVE OVER THIS LOSS. I OFFERED CLINIC OFFICE MANAGER VISIT, WITH CLINIC OFFICE MANAGER HE HAS MET BEFORE AND HE WAS AGREEABLE TO THAT. NO SERVICE ANIMAL AVAILABLE TO HIM PER CLINIC OFFICE MANAGER AND SHE WILL ATTEMPT TO VISIT LATER IN THE DAY PER PT REQUEST. LAVENDER SACHET AND LAVENDER BUBBLE WAND BROUGHT TO HIM. ALSO BROUGHT SOFT BLANKET TO PT'S BED FOR INCREASED COMFORT. PT APPEARS TO HAVE GAINED WT AND APPEARS LESS MALNUTRITIONED THAN ON PREVIOUS ADMISSIONS. WHEN I RETURNED WITH A BLANKET FOR HIM HE AND HIS WERE OUT FOR A WALK.
--- NOTE | 2019-09-08 18:19 | NUR ---
SHIFT SUMMARY PAIN HAS BEEN DIFFICULT TO MANAGE THIS SHIFT. PT REPORTS BETTER PAIN CONTROL SINCE NORCO WAS STARTED WITH DILAUDID FOR BREAKTHROUGH PAIN. PT'S S/O HAS BEEN AT THE BEDSIDE THIS SHIFT FOR SUPPORT. PT IS INDEPENDENT IN THE ROOM. PT APPEARS CALMER AND REPORTS LESS ANXIETY THIS EVENING. RESTING WITH EYES CLOSED AT THIS TIME. WILL CONTINUE TO MONITOR UNTIL REPORT TO ONCOMING RN.
[2019-09-08 22:20] LABS: Alanine Aminotransfer (ALT/SGP 16 U/L (12-78); Albumin, Blood 2.7 g/dL (3.4-5.0); Albumin/Globulin Ratio 0.9 (0.8-1.8); Alk Phos 69 U/L (50-136); Anion Gap 4 mmol/L (6-16); Aspartate Aminotrans (AST/SGOT 8 U/L (12-37); Bilirubin, Total 0.1 mg/dL (0.1-1.0); Blood Urea Nitrogen 17 mg/dL (8-24); Bun/Creatinine Ratio 22.6 (12.0-20.0); CO2, Blood 27 mmol/L (21-32); Calcium, Blood 7.8 mg/dL (8.5-10.1); Chloride, Blood 112 mmol/L (98-108); Creatinine, Blood 0.75 mg/dL (0.60-1.20); Globulin, Blood 2.9 g/dL (2.2-4.0); Glomerular Filtration Rate >60 (60-); Glucose, Blood 117 mg/dL (70-99); Potassium, Blood 4.3 mmol/L (3.5-5.5); Sodium, Blood 143 mmol/L (136-145); Total Protein, Blood 5.6 g/dL (6.4-8.2)
--- NOTE | 2019-09-09 03:04 | NUR ---
Patient A/O x4, calm and cooperative. Asked to speak with Anum. Patient seen by Anum discussed concerns about his pain and nausea. Changes made to pain medications. Patient's pain in managed. Resting comfortably. IVF infusing. Medicated as ordered.
[2019-09-09 04:53] LABS: BASOPHILS ABSOLUTE AUTO 0.04 K/mm3 (0.00-0.23); BASOPHILS PERCENT AUTO 0 % (0-2); EOSINOPHILS ABSOLUTE AUTO 0.08 K/mm3 (0.00-0.68); EOSINOPHILS PERCENT AUTO 1 % (0-6); Hematocrit 36.7 % (37.0-53.0); Hemoglobin 11.3 g/dL (13.5-17.5); IMMATURE GRAN ABSOLUTE AUTO 0.05 K/mm3 (0.00-0.10); IMMATURE GRAN PERCENT AUTO 0 % (0-1); LYMPHOCYTES ABSOLUTE AUTO 1.73 K/mm3 (0.84-5.20); LYMPHOCYTES PERCENT AUTO 12 % (21-46); MONOCYTES ABSOLUTE AUTO 1.14 K/mm3 (0.16-1.47); MONOCYTES PERCENT AUTO 8 % (4-13); Mean Corpuscular HGB 28.5 pg (26.0-34.0); Mean Corpuscular HGB Conc 30.8 g/dL (31.5-36.5); Mean Corpuscular Volume 92 fL (80-100); Mean Platelet Volume 9.1 fL (9.1-12.4); NEUTROPHILS ABSOLUTE AUTO 10.93 K/mm3 (1.96-9.15); NEUTROPHILS PERCENT AUTO 78 % (41-73); Platelet Count 455 K/mm3 (150-400); RDW Coefficient Variation 17.2 % (11.7-14.2); RDW Standard Deviation 58.6 fL (35.1-46.3); Red Blood Cell Count 3.97 M/mm3 (4.30-5.90); White Blood Cell Count 13.97 K/mm3 (4.00-11.30)
[2019-09-09 05:14] LABS: Alanine Aminotransfer (ALT/SGP 13 U/L (12-78); Albumin, Blood 2.5 g/dL (3.4-5.0); Albumin/Globulin Ratio 0.9 (0.8-1.8); Alk Phos 64 U/L (50-136); Anion Gap 3 mmol/L (6-16); Aspartate Aminotrans (AST/SGOT 7 U/L (12-37); Bilirubin, Total 0.2 mg/dL (0.1-1.0); Blood Urea Nitrogen 16 mg/dL (8-24); Bun/Creatinine Ratio 19.2 (12.0-20.0); CO2, Blood 28 mmol/L (21-32); Calcium, Blood 7.7 mg/dL (8.5-10.1); Chloride, Blood 115 mmol/L (98-108); Creatinine, Blood 0.83 mg/dL (0.60-1.20); Globulin, Blood 2.8 g/dL (2.2-4.0); Glomerular Filtration Rate >60 (60-); Glucose, Blood 94 mg/dL (70-99); Potassium, Blood 4.3 mmol/L (3.5-5.5); Sodium, Blood 146 mmol/L (136-145); Total Protein, Blood 5.3 g/dL (6.4-8.2)
[2019-09-09 05:19] LABS: Percent Saturation 16.2 % (20.0-50.0)
--- NOTE | 2019-09-09 12:41 | NUR ---
JU CONSULTING WITH THEODORE
[2019-09-09 14:10] LABS: Adenovirus F 40/41 Not Detected (NOT DETECT); Astrovirus Not Detected (NOT DETECT); Campylobacter Sp Not Detected (NOT DETECT); Cryptosporidium Not Detected (NOT DETECT); Cyclospora Cayetanensis Not Detected (NOT DETECT); E. Coli O157 Not Detected (NOT DETECT); Entamoeba Histolytica Not Detected (NOT DETECT); Enteroaggregative E. coli-EAEC Not Detected (NOT DETECT); Enteropathogenic E. coli-EPEC Not Detected (NOT DETECT); Enterotoxigenic E. coli-ETEC Not Detected (NOT DETECT); Giardia Lamblia Not Detected (NOT DETECT); Norovirus GI/GII Not Detected (NOT DETECT); Plesiomonas Shigelloides Not Detected (NOT DETECT); Rotavirus A Not Detected (NOT DETECT); Salmonella Sp Not Detected (NOT DETECT); Sapovirus Not Detected (NOT DETECT); Shiga Toxin-prod E. coli-STEC Not Detected (NOT DETECT); Shigella/Enteroin E. coli-EIEC Not Detected (NOT DETECT); Vibrio Cholerae Not Detected (NOT DETECT); Vibrio Sp Not Detected (NOT DETECT); Yersinia Enterocolitica Not Detected (NOT DETECT)
--- NOTE | 2019-09-09 17:22 | NUR ---
Spiritual Care inital note: Joel was tired bu t was open to short visit and prayer. We have a rapport from his previous hospitalizations. , Mari, at bedside. She appears to be a loving suport to [place]. Prayer provided for healing at his request. He admits to feeling discouraged that his chronic illness is escalating again. He responded well to gentle drug abuse counselor. I will remain available.
--- NOTE | 2019-09-09 18:42 | NUR ---
shift summary: vss, no acute changes. pt remained a/0 x 4, pleasant/cooperative. nauseous no vomiting following lunch, pt tolerates only clear liquid such as jellow and ensure clear minimally. pt states he has "bad" gas with other liquids. pt reports extra large BMs x 4, loose/unformed brown, swirls of blood in stool. pt and ambulated x 2 in hallways this shift, once to the [facility]. pt requests pain medication per jan q2, q4 with reported pain at 8-9/10 upon admission, only controlled to 6-7/10 upon reassessment.
--- NOTE | 2019-09-10 03:51 | NUR ---
Patient alert and oriented. VSS. Complaints of Severe abd pain; medicated per orders. Ambulating in hallway. Voiding freely. IVF infusing. Tolerating clear liquids.
[2019-09-10 04:58] LABS: BASOPHILS ABSOLUTE AUTO 0.04 K/mm3 (0.00-0.23); BASOPHILS PERCENT AUTO 0 % (0-2); EOSINOPHILS ABSOLUTE AUTO 0.27 K/mm3 (0.00-0.68); EOSINOPHILS PERCENT AUTO 2 % (0-6); Hemoglobin 11.4 g/dL (13.5-17.5); IMMATURE GRAN ABSOLUTE AUTO 0.09 K/mm3 (0.00-0.10); IMMATURE GRAN PERCENT AUTO 1 % (0-1); LYMPHOCYTES ABSOLUTE AUTO 1.68 K/mm3 (0.84-5.20); LYMPHOCYTES PERCENT AUTO 11 % (21-46); MONOCYTES ABSOLUTE AUTO 1.45 K/mm3 (0.16-1.47); MONOCYTES PERCENT AUTO 10 % (4-13); Mean Corpuscular HGB 28.3 pg (26.0-34.0); Mean Corpuscular HGB Conc 30.8 g/dL (31.5-36.5); Mean Corpuscular Volume 92 fL (80-100); Mean Platelet Volume 9.2 fL (9.1-12.4); NEUTROPHILS PERCENT AUTO 76 % (41-73); Platelet Count 426 K/mm3 (150-400); RDW Coefficient Variation 17.8 % (11.7-14.2); RDW Standard Deviation 59.5 fL (35.1-46.3); Red Blood Cell Count 4.03 M/mm3 (4.30-5.90); White Blood Cell Count 14.83 K/mm3 (4.00-11.30)
[2019-09-10 05:46] LABS: Alanine Aminotransfer (ALT/SGP 15 U/L (12-78); Albumin, Blood 2.5 g/dL (3.4-5.0); Alk Phos 62 U/L (50-136); Anion Gap 4 mmol/L (6-16); Aspartate Aminotrans (AST/SGOT 5 U/L (12-37); Bilirubin, Total 0.1 mg/dL (0.1-1.0); Blood Urea Nitrogen 14 mg/dL (8-24); Bun/Creatinine Ratio 19.9 (12.0-20.0); CO2, Blood 28 mmol/L (21-32); Calcium, Blood 7.6 mg/dL (8.5-10.1); Chloride, Blood 116 mmol/L (98-108); Globulin, Blood 2.6 g/dL (2.2-4.0); Glomerular Filtration Rate >60 (60-); Glucose, Blood 83 mg/dL (70-99); Potassium, Blood 4.1 mmol/L (3.5-5.5); Sodium, Blood 148 mmol/L (136-145); Total Protein, Blood 5.1 g/dL (6.4-8.2)
--- NOTE | 2019-09-10 09:24 | NUR ---
DR LANGFORD REPORTED TO COME SEE PT. SEE ORDERS. DISCUSSED PT'S STATUS.
--- NOTE | 2019-09-10 09:35 | NUR ---
LOVENOX HELD PER DR LANGFORD. PAS PLACED TO BLE PER DR LANGFORD.
--- NOTE | 2019-09-10 17:32 | NUR ---
PT REPORTS DR ARROYO RECENTLY HERE. FAMILY PRESENT.
--- NOTE | 2019-09-10 18:02 | NUR ---
SHIFT SUMMARY PT TOLERATING C.L. PT VOIDING AND HAVING BM'S. PT BEEN ASSISTED WITH ADL'S PRN. FAMILY BEEN IN ROOM T/O DAY. PT REPORTS DR ARROYO CAME AND SAW HIM THIS AFTERNOON. PT UP IND.
[2019-09-11 04:43] LABS: BASOPHILS ABSOLUTE AUTO 0.03 K/mm3 (0.00-0.23); BASOPHILS PERCENT AUTO 0 % (0-2); EOSINOPHILS ABSOLUTE AUTO 0.08 K/mm3 (0.00-0.68); EOSINOPHILS PERCENT AUTO 1 % (0-6); Hematocrit 39.3 % (37.0-53.0); Hemoglobin 11.7 g/dL (13.5-17.5); IMMATURE GRAN ABSOLUTE AUTO 0.07 K/mm3 (0.00-0.10); IMMATURE GRAN PERCENT AUTO 0 % (0-1); LYMPHOCYTES ABSOLUTE AUTO 0.58 K/mm3 (0.84-5.20); LYMPHOCYTES PERCENT AUTO 4 % (21-46); MONOCYTES PERCENT AUTO 3 % (4-13); Mean Corpuscular HGB 28.1 pg (26.0-34.0); Mean Corpuscular HGB Conc 29.8 g/dL (31.5-36.5); Mean Platelet Volume 9.8 fL (9.1-12.4); NEUTROPHILS ABSOLUTE AUTO 14.78 K/mm3 (1.96-9.15); NEUTROPHILS PERCENT AUTO 92 % (41-73); Platelet Count 403 K/mm3 (150-400); RDW Coefficient Variation 17.8 % (11.7-14.2); Red Blood Cell Count 4.16 M/mm3 (4.30-5.90); White Blood Cell Count 16.04 K/mm3 (4.00-11.30)
[2019-09-11 04:47] LABS: Mean Corpuscular Volume 95 fL (80-100)
--- NOTE | 2019-09-11 05:03 | NUR ---
SHIF SUMMARY PATIENT HAS HAD AN UNEVENTFUL NIGHT. NO ACUTE CHANGES. PATIENT ONLY HAD ONE LIQUID STOOL AT THE BEGINNING OF THE SHIFT. HIS BOWEL TONES HAVE BEEN HYPERACTIVE. hE CONTINUES TO HAVE 9-10/10 LLQUADRANT PAIN 2 HOURS AFTER IV DILAUDID. HE IS INDEPENDENT IN THE ROOM AND UNDERSTANDS HOW TO KEEP HISSELF SAFE IN THE ROOM.
[2019-09-11 05:11] LABS: Alanine Aminotransfer (ALT/SGP 17 U/L (12-78); Albumin, Blood 2.7 g/dL (3.4-5.0); Albumin/Globulin Ratio 0.9 (0.8-1.8); Alk Phos 64 U/L (50-136); Anion Gap 3 mmol/L (6-16); Aspartate Aminotrans (AST/SGOT 10 U/L (12-37); Bilirubin, Total 0.3 mg/dL (0.1-1.0); Blood Urea Nitrogen 13 mg/dL (8-24); Bun/Creatinine Ratio 19.5 (12.0-20.0); CO2, Blood 28 mmol/L (21-32); Calcium, Blood 8.2 mg/dL (8.5-10.1); Chloride, Blood 113 mmol/L (98-108); Creatinine, Blood 0.67 mg/dL (0.60-1.20); Glomerular Filtration Rate >60 (60-); Glucose, Blood 119 mg/dL (70-99); Potassium, Blood 4.8 mmol/L (3.5-5.5); Sodium, Blood 144 mmol/L (136-145); Total Protein, Blood 5.7 g/dL (6.4-8.2)
[2019-09-12 04:03] LABS: BASOPHILS ABSOLUTE AUTO 0.01 K/mm3 (0.00-0.23); BASOPHILS PERCENT AUTO 0 % (0-2); EOSINOPHILS PERCENT AUTO 0 % (0-6); Hematocrit 35.5 % (37.0-53.0); Hemoglobin 10.8 g/dL (13.5-17.5); IMMATURE GRAN ABSOLUTE AUTO 0.08 K/mm3 (0.00-0.10); IMMATURE GRAN PERCENT AUTO 1 % (0-1); LYMPHOCYTES ABSOLUTE AUTO 0.57 K/mm3 (0.84-5.20); LYMPHOCYTES PERCENT AUTO 4 % (21-46); MONOCYTES ABSOLUTE AUTO 0.42 K/mm3 (0.16-1.47); MONOCYTES PERCENT AUTO 3 % (4-13); Mean Corpuscular HGB 28.3 pg (26.0-34.0); Mean Corpuscular HGB Conc 30.4 g/dL (31.5-36.5); Mean Corpuscular Volume 93 fL (80-100); Mean Platelet Volume 9.8 fL (9.1-12.4); NEUTROPHILS ABSOLUTE AUTO 13.21 K/mm3 (1.96-9.15); NEUTROPHILS PERCENT AUTO 92 % (41-73); Platelet Count 364 K/mm3 (150-400); RDW Coefficient Variation 17.6 % (11.7-14.2); RDW Standard Deviation 59.8 fL (35.1-46.3); Red Blood Cell Count 3.82 M/mm3 (4.30-5.90); White Blood Cell Count 14.29 K/mm3 (4.00-11.30)
[2019-09-12 04:22] LABS: Albumin, Blood 2.7 g/dL (3.4-5.0); Anion Gap 4 mmol/L (6-16); Blood Urea Nitrogen 11 mg/dL (8-24); Bun/Creatinine Ratio 18.1 (12.0-20.0); CO2, Blood 27 mmol/L (21-32); Calcium, Blood 7.8 mg/dL (8.5-10.1); Chloride, Blood 112 mmol/L (98-108); Creatinine, Blood 0.61 mg/dL (0.60-1.20); Glomerular Filtration Rate >60 (60-); Glucose, Blood 158 mg/dL (70-99); Phosphorus, Blood 2.8 mg/dL (2.5-4.9); Potassium, Blood 3.8 mmol/L (3.5-5.5); Sodium, Blood 143 mmol/L (136-145)
--- NOTE | 2019-09-12 07:23 | NUR ---
SUMMARY NO ACUTE CHANGES NOTED THROUGH THE NIGHT. PAIN MANAGED PRN PER EMAR. ABX INFUSED PER ORDERS. PT INDEPENDENT IN THE ROOM. RESP UNLABORED. CALL LIGHT IN REACH.
--- NOTE | 2019-09-12 13:40 | NUR ---
PENIS EDEMATOUS TO R SIDE PT REPORTED NEW ONSET OF SWELLING TO R SIDE OF PENIS. ALSO STATES HAS A PORE ON EACH SIDE OF PENIS AND PORE ON RIGHT RED. RN VISUALIZED AND R SIDE OF PENIS LOOKS LIKE SMALL BLISTER FORMING WELL SWELLING TO R SIDE OF PENIS. NOTIFIED DR WATTS. NO NEW ORDERS.
--- NOTE | 2019-09-12 18:12 | NUR ---
SUMMARY NO ACUTE CHANGES T/O SHIFT. PT AMBULATED THROUGH HALLS INDEPENDENTLY. STARTED ON GOLYTELY THIS AFTERNOON. TOLERATING WELL. REPORTS BM LIQUID BROWN AT THIS TIME. MEDICATED T/O SHIFT PER ORDERS FOR PAIN. USES CALL LIGHT APPROPRIATELY. SPOUSE AT BEDSIDE. PLAN FOR SCOPE IN AM.
--- NOTE | 2019-09-13 07:41 | NUR ---
SUMMARY PT REPORTS ANXIOUS REGARDING SCOPE.THIS AM STATES HAS MORE QUESTIONS FOR DOCTOR. I ADVISED I WILL NOTIFY DAY RN TO REQUEST PT SPEAK WITH DR PRIOR TO SCOPE. STOOLS ARE CLEARING.
--- NOTE | 2019-09-13 08:53 | NUR ---
09/13/19 0853 Barbara Maloney History, Chart, Medications and Allergies reviewed before start of procedure. Patient states colon prep results clear. 3-LEAD EKG REVIEWED WITH PHYSICIAN PRIOR TO START OF PROCEDURE. MONITOR INTACT WITH CONTINUOUS PULSE OXIMETRY AND INTERMITTENT BP. O2 VIA N/C INTACT THROUGHOUT SEDATION/PROCEDURE. PATIENT DETERMINED TO BE ASA APPROPRIATE FOR PROPOFOL SEDATION PRIOR TO START OF PROCEDURE BY .
--- NOTE | 2019-09-13 09:15 | NUR ---
pt to procedure
--- NOTE | 2019-09-13 10:56 | NUR ---
PT BACK FROM PROCEDURE HYPERTENSIVE AND EARLINE. MEDICATED PER ORDERS FOR [address] WATTS IN TO SEE PT. FAMILY AT BEDSIDE.
--- NOTE | 2019-09-13 12:47 | NUR ---
PT SPEAKING TO HOSPITALIST JESUS KENT.
--- NOTE | 2019-09-13 13:36 | NUR ---
DR ARROYO IN TO SEE PT.
--- NOTE | 2019-09-13 15:07 | NUR ---
PT OUT OF ROOM
--- NOTE | 2019-09-13 15:24 | NUR ---
PT OUT OF ROOM
--- NOTE | 2019-09-13 15:26 | NUR ---
PT BACK TO ROOM
--- NOTE | 2019-09-13 17:50 | NUR ---
SUMMARY PT HAD SCOPE THIS SHIFT. PLAN TO DC HOME TOMORROW. ADVANCED TO FULL LIQUID DIET. DR CHANGED PT TO PO PAIN MANAGEMENT THIS AFTERNOON. PT FEELS TRANSITION FROM IV TO PO TO ABRUPT AND PO PAIN MEDS NOT ADEQUATELY TREATING PAIN. CALLED DR WATTS AND DISCUSSED. ORDERS OBTAINED FOR OT DOSE OF 2MG PO DILAUDID. ATTEMPTED TO EDUCATE PT ON NEED TO ADVANCE SLOWLY ON PAIN MEDS FOR SAFETY REASONS. SPOUSE AND SON AT BEDSIDE. CALL LIGHT IN REACH.
--- NOTE | 2019-09-13 19:30 | NUR ---
edema PT REPORTED EDEMA TO GENITALS AND STATED FELT ABD DISTENDED. CALLED AND DISCUSSED W/DR WATTS. ORDERS OBTAINED. REPORTED TO NOC SHIFT.
--- NOTE | 2019-09-13 20:07 | NUR ---
PT OUT OF ROOM DURING THIS ROUNDING. WILL AWAIT RETURN FOR ASSESSMENT
[2019-09-13] MEDS ORDERED: AMLO10 PO (21:42)
--- NOTE | 2019-09-13 22:17 | NUR ---
Spiritual care visit conducted. Pt's spouse contacted the spiritual care department and divulged her thoughts and emotions related to her spouse's circumstance. Active listening provided. Upon entry into pt's room, pt was hightened emotionally and visibly upset. This PC stepped out as nursing provided care to the pt. I will remain available prospectively for PC support.
--- NOTE | 2019-09-13 22:27 | NUR ---
PT VERBALIZED FRUSTRATION R/T NEW PAIN MED ORDERS. PT REQ BREAKTHROUGH PAIN MEDS. CURRENT ORDERS DISCUSSED W/PT. PT AND VERBALIZED FRUSTRATION W/CURRENT ORDERS AND REQ RN TO CALL THE "NIGHT DR TO SEE IF THEY WILL CHANGE THEM" PT ALSO C/O NEW ONSET LOWER BACK PAIN. PT REP PAIN "FEELS LIKE I'M BEING KICKED IN THE BACK" "IT FEELS LIKE A KIDNEY STONE" CALL PLACED TO HOSPITALIST. PT UP TO DESK REP PT HAVING SOB AND TROUBLE BREATHING. PT ALERT, ANXIOUS, VITALS TAKEN, O2 98% ON RA, HR 78-81, RR 24. UNABLE TO OBTAIN BP R/T PT RESTLESSNESS. HOSPITALIST UPDATED ON PT PAIN MED CONCNERS, PT NEW SOB AND CURRENT VITALS, BACK PAIN. NEW ORDERS FOR UA AND 1X BREAKTHROUGH PAIN MED DOSE REC. THIS RN IN TO PT ROOM TO UPDATE PT AND ON NEW ORDERS. RETAIL SALESWORKER IN ROOM AT THIS TIME. PT BECAME VERY HOSTILE, YELLING AT THIS RN. NURSING GARMENT PATTERNMAKER AND CLINICAL COORDINATOR IN ROOM. PT AND EDUCATED ON TX PLAN. ATTENTIVE AND SUPPORTIVE, PT DID BECOME MORE CALM, PAIN MEDS GIVEN PER ORDERS. PT APPOLOGETIC FOR OUTBURST AND THANKS THIS RN FOR CARE.
[2019-09-13 22:43] LABS: Source, Urine Clean Catch
[2019-09-13 22:45] LABS: Bilirubin, Urine Neg (Neg); Blood, Urine Neg (Neg); Glucose Qualitative, Urine Neg (Neg); Ketones, Urine Neg (Neg); Leukocyte Esterase, Urine Neg (Neg); Nitrite, Urine Neg (Neg); Protein, Urine Neg (Neg); Specific Gravity, Urine 1.005 (1.003-1.022); Urobilinogen, Urine NORM (Normal)
[2019-09-13 22:50] LABS: Appearance, Urine Clear (Clear); Color, Urine Yellow (P-Yellow)
[2019-09-14 04:35] LABS: BASOPHILS ABSOLUTE AUTO 0.01 K/mm3 (0.00-0.23); BASOPHILS PERCENT AUTO 0 % (0-2); EOSINOPHILS ABSOLUTE AUTO 0.01 K/mm3 (0.00-0.68); EOSINOPHILS PERCENT AUTO 0 % (0-6); Hematocrit 35.7 % (37.0-53.0); Hemoglobin 11.3 g/dL (13.5-17.5); IMMATURE GRAN ABSOLUTE AUTO 0.09 K/mm3 (0.00-0.10); IMMATURE GRAN PERCENT AUTO 1 % (0-1); LYMPHOCYTES ABSOLUTE AUTO 0.86 K/mm3 (0.84-5.20); LYMPHOCYTES PERCENT AUTO 6 % (21-46); MONOCYTES ABSOLUTE AUTO 0.75 K/mm3 (0.16-1.47); MONOCYTES PERCENT AUTO 5 % (4-13); Mean Corpuscular HGB 27.9 pg (26.0-34.0); Mean Corpuscular HGB Conc 31.7 g/dL (31.5-36.5); Mean Platelet Volume 9.7 fL (9.1-12.4); NEUTROPHILS ABSOLUTE AUTO 13.56 K/mm3 (1.96-9.15); NEUTROPHILS PERCENT AUTO 89 % (41-73); Platelet Count 362 K/mm3 (150-400); RDW Coefficient Variation 17.7 % (11.7-14.2); Red Blood Cell Count 4.05 M/mm3 (4.30-5.90); White Blood Cell Count 15.28 K/mm3 (4.00-11.30)
[2019-09-14 04:36] LABS: Mean Corpuscular Volume 88 fL (80-100)
[2019-09-14 04:59] LABS: Albumin, Blood 2.5 g/dL (3.4-5.0); Anion Gap 6 mmol/L (6-16); Blood Urea Nitrogen 13 mg/dL (8-24); Bun/Creatinine Ratio 19.7 (12.0-20.0); CO2, Blood 32 mmol/L (21-32); Chloride, Blood 105 mmol/L (98-108); Creatinine, Blood 0.66 mg/dL (0.60-1.20); Glomerular Filtration Rate >60 (60-); Glucose, Blood 159 mg/dL (70-99); Phosphorus, Blood 2.9 mg/dL (2.5-4.9); Potassium, Blood 2.8 mmol/L (3.5-5.5); Sodium, Blood 143 mmol/L (136-145)
--- NOTE | 2019-09-14 10:54 | NUR ---
DR WATTS HERE TO SEE PT.
--- NOTE | 2019-09-14 11:12 | NUR ---
PT DISCUSSED HIS STATUS WITH DR WATTS INCLUDING POSSIBLE HEART MURMER, WHICH SHE REPORTED SHE DID NOT HEAR. ALSO DISCUSSED SWELLING, URINE OUTPUT, STEROIDS, PENIS, MEDS. FAMILY WAS IN ROOM.
[2019-09-14] MEDS ORDERED: ONDA4 PO (13:14)
[2019-09-14] MEDS ORDERED: CEPACOL SORE T1 EACH MM (13:15)
[2019-09-14] MEDS ORDERED: ASCO500 PO (13:15)
[2019-09-14] MEDS ORDERED: FERSU300 PO (13:16)
[2019-09-14] MEDS ORDERED: LACT PO (13:16)
[2019-09-14] MEDS ORDERED: MELA3 PO (13:17)
[2019-09-14] MEDS ORDERED: CLOT10 SS (13:17)
[2019-09-14] MEDS ORDERED: Prednisone10 MG PO (13:18)
--- NOTE | 2019-09-14 15:10 | NUR ---
REPORT GIVEN TO Danielle WHO WILL BE TAKING OVER CARE AT THIS TIME. REPORTS WILL GVIE PAIN MEDICATION.
--- NOTE | 2019-09-14 16:17 | NUR ---
DISCHARGE PT DISCHARGED HOME FROM UNIT AT APROX 1617. PT GIVEN WRITTEN AND VERBAL DISCHARGE INSTRUCTIONS AND VERBALIZED UNDERSTANDING OF THESE INSTRUCTIONS. IV REMOVED, PT TOLERATED WELL. DECLINED WHEELCHAIR TO CAR.
--- NOTE | 2019-09-14 16:34 | NUR ---
Spiritual Care: Joel was pacing in room, ranting, angry. He was unreasonable and talking about "the end of days" and being "cursed". It looked and felt manic. His arrived and he began yelling at her. She became tearful. Counseled both. Prayer provided at their request. Urbano admits that he is tired of being in pain and "sick all the time." He is being discharged today and is not happy about this.
== END 2019-09-14 16:02 | disposition home or self-care (01) | DRG 386 ==
LOC: ER 17:10 → ERHOLD 17:11 → SURS 09-08 07:59
PROVIDERS: Internal Medicine; Internal Medicine Gastroenterology; Nurse Practitioner Acute Care; Physician Assistant; ADMIT Hospitalist
PROC: 0DBE8ZX Excision of Large Intestine, Via Natural or Artificial Opening Endoscopic, Diagnostic (ICD-10-PCS; principal; 2019-09-13 09:30)
DX: K50.811 Crohn's disease of both small and large intestine with rectal bleeding (principal); K91.89 Other postprocedural complications and disorders of digestive system; E87.0 Hyperosmolality and hypernatremia; E44.1 Mild protein-calorie malnutrition; K21.9 Gastro-esophageal reflux disease without esophagitis; Z86.718 Personal history of other venous thrombosis and embolism; M81.0 Age-related osteoporosis without current pathological fracture; G43.909 Migraine, unspecified, not intractable, without status migrainosus; M19.90 Unspecified osteoarthritis, unspecified site; M06.9 Rheumatoid arthritis, unspecified; I10 Essential (primary) hypertension; Z90.49 Acquired absence of other specified parts of digestive tract; Z87.891 Personal history of nicotine dependence; R33.9 Retention of urine, unspecified; D72.829 Elevated white blood cell count, unspecified; E87.6 Hypokalemia; K64.4 Residual hemorrhoidal skin tags; K64.8 Other hemorrhoids
CPT/HCPCS: 0097U; 36415; 74176; 80053; 80069; 81003; 82728; 83540; 83550; 83690; 83993; 84132; 85025; 86141; 88305; 94762; 96361; 96374; 96375; 96376; 99285-25; A9270; A9270-GY; J0360; J0696; J1170; J1650; J1720; J1940; J2250; J2405; J2550; J2704; J2930; J3010; J3480; J7030; J7120

== ENCOUNTER 2019-09-16 18:02 | Emergency (ER) | payer OTHER ==
[~2019-09-16] VITALS: Ht 170.2 cm; Wt 68.0 kg
[~2019-09-16 18:02] MED LIST changes: +ASCO500 PO; +CEPACOL SORE T1 EACH MM; +CLOT10 SS; +FERSU300 PO; +LACT PO; +MELA3 PO; +ONDA4 PO; +PROAIR RESPICL90 MCG INH; +Prednisone10 MG PO; +Protonix40 MG PO; +VALS80 PO; +Zofran4 MG PO
[2019-09-16 18:55] LABS: BASOPHILS ABSOLUTE AUTO 0.02 K/mm3 (0.00-0.23); BASOPHILS PERCENT AUTO 0 % (0-2); EOSINOPHILS PERCENT AUTO 0 % (0-6); Hematocrit 37.3 % (37.0-53.0); Hemoglobin 11.5 g/dL (13.5-17.5); IMMATURE GRAN PERCENT AUTO 1 % (0-1); LYMPHOCYTES ABSOLUTE AUTO 0.82 K/mm3 (0.84-5.20); LYMPHOCYTES PERCENT AUTO 4 % (21-46); MONOCYTES PERCENT AUTO 4 % (4-13); Mean Corpuscular HGB 28.2 pg (26.0-34.0); Mean Corpuscular HGB Conc 30.8 g/dL (31.5-36.5); Mean Platelet Volume 9.7 fL (9.1-12.4); NEUTROPHILS ABSOLUTE AUTO 19.72 K/mm3 (1.96-9.15); NEUTROPHILS PERCENT AUTO 91 % (41-73); Platelet Count 531 K/mm3 (150-400); RDW Coefficient Variation 18.3 % (11.7-14.2); RDW Standard Deviation 61.2 fL (35.1-46.3); Red Blood Cell Count 4.08 M/mm3 (4.30-5.90); White Blood Cell Count 21.56 K/mm3 (4.00-11.30)
[2019-09-16 18:56] LABS: Mean Corpuscular Volume 91 fL (80-100)
[2019-09-16 19:22] LABS: Alanine Aminotransfer (ALT/SGP 30 U/L (12-78); Albumin, Blood 3.2 g/dL (3.4-5.0); Alk Phos 53 U/L (50-136); Anion Gap 7 mmol/L (6-16); Aspartate Aminotrans (AST/SGOT 7 U/L (12-37); Bilirubin, Total 0.2 mg/dL (0.1-1.0); Blood Urea Nitrogen 17 mg/dL (8-24); Bun/Creatinine Ratio 20.7 (12.0-20.0); CO2, Blood 29 mmol/L (21-32); Calcium, Blood 8.4 mg/dL (8.5-10.1); Chloride, Blood 105 mmol/L (98-108); Creatinine, Blood 0.82 mg/dL (0.60-1.20); Globulin, Blood 3.1 g/dL (2.2-4.0); Glomerular Filtration Rate >60 (60-); Glucose, Blood 126 mg/dL (70-99); Potassium, Blood 3.7 mmol/L (3.5-5.5); Sodium, Blood 141 mmol/L (136-145); Total Protein, Blood 6.3 g/dL (6.4-8.2); Troponin I <0.015 ng/mL (0.000-0.040)
== END 2019-09-16 21:34 | disposition home or self-care (01) ==
LOC: ER 18:02
PROVIDERS: Physician Assistant
DX: R60.0 Localized edema (principal); I10 Essential (primary) hypertension; Z87.891 Personal history of nicotine dependence; Z79.899 Other long term (current) drug therapy; Z79.891 Long term (current) use of opiate analgesic; Z79.52 Long term (current) use of systemic steroids
CPT/HCPCS: 71046; 80053; 83880; 84484; 85025; 96374; 96375; 99284-25; J1170; J1940

== ENCOUNTER 2019-10-19 01:54 | Emergency (ER) | payer OTHER ==
[~2019-10-19] VITALS: Ht 170.2 cm; Wt 59.9 kg
[2019-10-19 02:24] LABS: BASOPHILS ABSOLUTE AUTO 0.06 K/mm3 (0.00-0.23); BASOPHILS PERCENT AUTO 1 % (0-2); EOSINOPHILS ABSOLUTE AUTO 0.36 K/mm3 (0.00-0.68); EOSINOPHILS PERCENT AUTO 3 % (0-6); Hematocrit 28.9 % (37.0-53.0); IMMATURE GRAN ABSOLUTE AUTO 0.09 K/mm3 (0.00-0.10); IMMATURE GRAN PERCENT AUTO 1 % (0-1); LYMPHOCYTES ABSOLUTE AUTO 1.26 K/mm3 (0.84-5.20); LYMPHOCYTES PERCENT AUTO 11 % (21-46); MONOCYTES ABSOLUTE AUTO 1.03 K/mm3 (0.16-1.47); MONOCYTES PERCENT AUTO 9 % (4-13); Mean Corpuscular HGB Conc 31.1 g/dL (31.5-36.5); Mean Corpuscular Volume 96 fL (80-100); Mean Platelet Volume 8.9 fL (9.1-12.4); NEUTROPHILS ABSOLUTE AUTO 8.78 K/mm3 (1.96-9.15); NEUTROPHILS PERCENT AUTO 76 % (41-73); Platelet Count 450 K/mm3 (150-400); RDW Coefficient Variation 17.6 % (11.7-14.2); RDW Standard Deviation 61.4 fL (35.1-46.3); White Blood Cell Count 11.58 K/mm3 (4.00-11.30)
[2019-10-19 02:42] LABS: Alanine Aminotransfer (ALT/SGP 30 U/L (12-78); Albumin/Globulin Ratio 0.8 (0.8-1.8); Alk Phos 73 U/L (50-136); Anion Gap 5 mmol/L (6-16); Aspartate Aminotrans (AST/SGOT 13 U/L (12-37); Bilirubin, Total 0.2 mg/dL (0.1-1.0); Blood Urea Nitrogen 14 mg/dL (8-24); Bun/Creatinine Ratio 22.3 (12.0-20.0); CO2, Blood 31 mmol/L (21-32); Calcium, Blood 8.8 mg/dL (8.5-10.1); Chloride, Blood 106 mmol/L (98-108); Creatinine, Blood 0.63 mg/dL (0.60-1.20); Globulin, Blood 3.7 g/dL (2.2-4.0); Glomerular Filtration Rate >60 (60-); Glucose, Blood 124 mg/dL (70-99); Potassium, Blood 3.7 mmol/L (3.5-5.5); Sodium, Blood 142 mmol/L (136-145); Total Protein, Blood 6.7 g/dL (6.4-8.2)
[2019-10-19] MEDS ORDERED: ACET500 PO (02:44)
[2019-10-19] MEDS ORDERED: DIALYVITE V5000 UNIT (02:46)
[2019-10-19] MEDS ORDERED: DRON5 (02:46)
[2019-10-19] MEDS ORDERED: ENSURE (02:47)
[2019-10-19] MEDS ORDERED: VENOFER200 MG/10 (02:49)
[2019-10-19] MEDS ORDERED: MELA3 (02:49)
[2019-10-19] MEDS ORDERED: HYDMOR4 PO (02:49)
[2019-10-19] MEDS ORDERED: LIDO700A20 (02:49)
[2019-10-19] MEDS ORDERED: ABAT250V (02:50)
[2019-10-19] MEDS ORDERED: METR250 PO (02:50)
[2019-10-19] MEDS ORDERED: PROM25 PO (04:13)
== END 2019-10-19 05:15 | disposition home or self-care (01) ==
LOC: ER 01:54
PROVIDERS: Emergency Medicine
DX: G89.18 Other acute postprocedural pain (principal); R10.9 Unspecified abdominal pain; K50.90 Crohn's disease, unspecified, without complications; I10 Essential (primary) hypertension; F17.200 Nicotine dependence, unspecified, uncomplicated; Z90.49 Acquired absence of other specified parts of digestive tract; Z91.041 Radiographic dye allergy status; Z88.2 Allergy status to sulfonamides; Z88.8 Allergy status to other drugs, medicaments and biological substances; Z79.899 Other long term (current) drug therapy
CPT/HCPCS: 74176; 80053; 83690; 85025; 96361; 96374; 96375; 99284-25; J1170; J2405; J2550; J7120

== ENCOUNTER → 2019-10-26 | Outpatient (CLI) | payer OTHER ==
[~2019-10-26] MED LIST changes: +ABAT250V; +ACET500 PO; +DIALYVITE V5000 UNIT; +DRON5; +ENSURE; +ERTAPENEM1 GM IV; +Florastor250 MG PO; +LIDO700A20; +MELA3; +METR250 PO; +OMEPRAZOLE20 MG PO; +VENOFER200 MG/10
[2019-10-26 15:14] LABS: Percent Saturation 11.1 % (20.0-50.0)
== END ==
LOC: LAB 14:21 → LAB SHORT 14:21
PROVIDERS: Internal Medicine Hematology & Oncology
DX: D50.9 Iron deficiency anemia, unspecified (principal); K50.90 Crohn's disease, unspecified, without complications
CPT/HCPCS: 82728; 83540; 83550

== ENCOUNTER 2019-10-28 23:45 | Inpatient (IN) | payer OTHER ==
[~2019-10-28] VITALS: Ht 170.2 cm; Wt 63.6 kg
[~2019-10-28 23:45] MED LIST changes: -ERTAPENEM1 GM IV; -Florastor250 MG PO; -OMEPRAZOLE20 MG PO
[2019-10-29 01:07] LABS: BASOPHILS ABSOLUTE AUTO 0.07 K/mm3 (0.00-0.23); BASOPHILS PERCENT AUTO 0 % (0-2); EOSINOPHILS ABSOLUTE AUTO 0.32 K/mm3 (0.00-0.68); EOSINOPHILS PERCENT AUTO 2 % (0-6); Hematocrit 29.6 % (37.0-53.0); Hemoglobin 8.9 g/dL (13.5-17.5); IMMATURE GRAN ABSOLUTE AUTO 0.18 K/mm3 (0.00-0.10); IMMATURE GRAN PERCENT AUTO 1 % (0-1); LYMPHOCYTES PERCENT AUTO 8 % (21-46); MONOCYTES ABSOLUTE AUTO 1.44 K/mm3 (0.16-1.47); MONOCYTES PERCENT AUTO 7 % (4-13); Mean Corpuscular HGB 28.8 pg (26.0-34.0); Mean Corpuscular HGB Conc 30.1 g/dL (31.5-36.5); Mean Corpuscular Volume 96 fL (80-100); Mean Platelet Volume 8.3 fL (9.1-12.4); NEUTROPHILS ABSOLUTE AUTO 17.29 K/mm3 (1.96-9.15); NEUTROPHILS PERCENT AUTO 83 % (41-73); RDW Coefficient Variation 17.9 % (11.7-14.2); RDW Standard Deviation 62.4 fL (35.1-46.3); Red Blood Cell Count 3.09 M/mm3 (4.30-5.90)
[2019-10-29 01:08] LABS: Platelet Count 1114 K/mm3 (150-400)
[2019-10-29 01:25] LABS: Alanine Aminotransfer (ALT/SGP 17 U/L (12-78); Albumin, Blood 2.6 g/dL (3.4-5.0); Albumin/Globulin Ratio 0.6 (0.8-1.8); Alk Phos 66 U/L (50-136); Anion Gap 11 mmol/L (6-16); Aspartate Aminotrans (AST/SGOT 6 U/L (12-37); Bilirubin, Total 0.1 mg/dL (0.1-1.0); Blood Urea Nitrogen 13 mg/dL (8-24); Bun/Creatinine Ratio 16.7 (12.0-20.0); CO2, Blood 21 mmol/L (21-32); Calcium, Blood 8.5 mg/dL (8.5-10.1); Chloride, Blood 110 mmol/L (98-108); Creatinine, Blood 0.78 mg/dL (0.60-1.20); Globulin, Blood 4.1 g/dL (2.2-4.0); Glomerular Filtration Rate >60 (60-); Glucose, Blood 86 mg/dL (70-99); Potassium, Blood 3.8 mmol/L (3.5-5.5); Sodium, Blood 142 mmol/L (136-145); Total Protein, Blood 6.7 g/dL (6.4-8.2)
[2019-10-29 01:48] LABS: Source, Urine Clean Catch
[2019-10-29 01:50] LABS: Blood, Urine 1+ (Neg); Glucose Qualitative, Urine Neg (Neg); Ketones, Urine 1+ (Neg); Leukocyte Esterase, Urine 2+ (Neg); Nitrite, Urine Neg (Neg); Protein, Urine 2+ (Neg); Specific Gravity, Urine 1.025 (1.003-1.022); Urobilinogen, Urine 1+ (Normal)
[2019-10-29 01:52] LABS: Appearance, Urine Clear (Clear); Bilirubin, Urine 1+ (Neg); Color, Urine Amber (P-Yellow)
[2019-10-29] MEDS ORDERED: PANT40 PO ×2 (01:53)
[2019-10-29] MEDS ORDERED: OMEPRAZOLE20 MG PO ×2 (01:54)
[2019-10-29 02:00] LABS: Bacteria Few /hpf; Calcium Oxalate Crystals Many /hpf; Red Blood Cells, Urine 0-2 /hpf (0-2); Squamous Epithelial Cells Not Seen /hpf (Few); White Blood Cells, Urine 0-2 /hpf (0-5)
--- NOTE | 2019-10-29 05:26 | NUR ---
report called to BRENDA Sorto in ED. Awaiting pt arrival at this time.
[2019-10-29 06:06] LABS: Adenovirus F 40/41 Not Detected (NOT DETECT); Astrovirus Not Detected (NOT DETECT); Campylobacter Sp Not Detected (NOT DETECT); Cryptosporidium Not Detected (NOT DETECT); Cyclospora Cayetanensis Not Detected (NOT DETECT); E. Coli O157 Not Detected (NOT DETECT); Entamoeba Histolytica Not Detected (NOT DETECT); Enteroaggregative E. coli-EAEC Not Detected (NOT DETECT); Enteropathogenic E. coli-EPEC Not Detected (NOT DETECT); Enterotoxigenic E. coli-ETEC Not Detected (NOT DETECT); Giardia Lamblia Not Detected (NOT DETECT); Norovirus GI/GII Not Detected (NOT DETECT); Plesiomonas Shigelloides Not Detected (NOT DETECT); Rotavirus A Not Detected (NOT DETECT); Salmonella Sp Not Detected (NOT DETECT); Sapovirus Not Detected (NOT DETECT); Shiga Toxin-prod E. coli-STEC Not Detected (NOT DETECT); Shigella/Enteroin E. coli-EIEC Not Detected (NOT DETECT); Vibrio Cholerae Not Detected (NOT DETECT); Vibrio Sp Not Detected (NOT DETECT); Yersinia Enterocolitica Not Detected (NOT DETECT)
--- NOTE | 2019-10-29 07:15 | NUR ---
Pt arrival Pt arrived to PCU at approx 0600 via gurney with ED RN at bedside. Pt stand to pivot transfer Pt guarding abdomen upon arrival. VSS, slightly elevated temp as documented. Pt alert and oriented, able to communicate needs, uses call light appropriately. Pt complains of pain to abd and back. Medicated per orders. Fluids infusing per orders into RAC. No acute concerns at this time. See admission assessment for detailed systems assessment. Dressing on midline abdominal incision changed at admission by this RN. Pt voids in urinal at bedside. Report given to day RN who assumes care.
--- NOTE | 2019-10-29 08:10 | NUR ---
pt laying in bed awake a/ox3, pleasant and cooperative with care, follows commands well, reports tenderness to his abd, lungs are course on left side, clear on right, is currently on r/a, resp even and unlabord, reports a occ prod cough, hrr, tele in place running sr per monitor, see strip, no edema noted, ppp+2, cap refill <3 sec, vs stable, low grade temp, iv site is clear and patent, infusing lr at this time, rosanna skin c/w/d, uses a cane to ambulate at home, will provide a walker, has a dressing to wound midline abd, no drainage noted, jazzy, call light in reach.
--- NOTE | 2019-10-29 10:28 | NUR ---
PT WILL BE MOVING TO MEDICAL FLOOR, REPORT WAS GIVEN TO FRANCESCA GUTIERREZ. HE WILL TRANSFER VIA WHEELCHAIR. ALL BELONGINGS WILL GO WITH.
--- NOTE | 2019-10-29 10:43 | NUR ---
PT LEFT FOR MEDICAL AT 1035 VIA WHEELCHAIR.
--- NOTE | 2019-10-29 19:00 | NUR ---
PT. LYING QUIETLY IN THE DARK SO AT BEDSIDE,SO CONCERNED SHE MIGHT CATCH WHAT HE HAS. TOLD HER WAS HIGHLY UNLIKELY. PT. ARRIVED TO THE FLOOR FROM [facility] AT 1055 THIS AM VIA WC. HAS SLEPT MOST OF THE DAY. PAIN BEING KEPT UNDER CONTROL BY THE DILAUDID. NO SIGNIFICANT CHANGES SINCE COMING TO FLOOR.
--- NOTE | 2019-10-30 04:53 | NUR ---
SHIFT SUMMARY PAOLA' LS WERE CLR T/O AND BT+ X4. HE HAD SURGERY APPROX 3 WEEKS AGO AND NOW HAS GOTTEN PNEUMONIA. HE RECEIVED TYLENOL X1 AND DILAUDID X2 FOR PAIN LAST NIGHT AND THIS MORNING. HE ASLO RECEIVED TRAZODONE 150 MG TO HELP HIM SLEEP AND HE HAS BEEN SLEEPING ON AND OFF T/O THE NIGHT. HIS BANDAGE WAS CHANGED X1. THE INCISION IS SLIGHTLY REDDENED AT THE TOP OF THE INCISION BUT NO S/S INFECTION. BOTH HIM AND HIS STATED THEY THOUGHT IT LOOKED VERY GOOD AND APPEARS TO BE HEALING.
[2019-10-30 08:32] LABS: BASOPHILS ABSOLUTE AUTO 0.05 K/mm3 (0.00-0.23); BASOPHILS PERCENT AUTO 0 % (0-2); EOSINOPHILS ABSOLUTE AUTO 0.16 K/mm3 (0.00-0.68); EOSINOPHILS PERCENT AUTO 1 % (0-6); Hematocrit 28.2 % (37.0-53.0); Hemoglobin 8.5 g/dL (13.5-17.5); IMMATURE GRAN ABSOLUTE AUTO 0.11 K/mm3 (0.00-0.10); IMMATURE GRAN PERCENT AUTO 1 % (0-1); LYMPHOCYTES ABSOLUTE AUTO 0.77 K/mm3 (0.84-5.20); LYMPHOCYTES PERCENT AUTO 4 % (21-46); MONOCYTES ABSOLUTE AUTO 0.81 K/mm3 (0.16-1.47); MONOCYTES PERCENT AUTO 4 % (4-13); Mean Corpuscular HGB Conc 30.1 g/dL (31.5-36.5); NEUTROPHILS ABSOLUTE AUTO 16.93 K/mm3 (1.96-9.15); NEUTROPHILS PERCENT AUTO 90 % (41-73); RDW Coefficient Variation 17.2 % (11.7-14.2); Red Blood Cell Count 3.04 M/mm3 (4.30-5.90); White Blood Cell Count 18.83 K/mm3 (4.00-11.30)
[2019-10-30 08:49] LABS: Mean Corpuscular Volume 93 fL (80-100)
[2019-10-30 08:53] LABS: Platelet Count 1087 K/mm3 (150-400)
--- NOTE | 2019-10-30 17:38 | NUR ---
Initial Visit: Patient has been seen by palliative care on previous visits. Order for consult placed for symptom management. Pt is alert, oriented. He hands me a emesis back with close to 1000ml in it. He is forcefully vomiting and complains of increased pain, even though he has been taking pain medications regularly. He is asking for a higher pain dose at this time. Reports that he is not currently managed. His pain is 10/10. Symptoms discussed. In addition to pain, pt is complaining of 5/10 anxiety, 10/10 nausea, and moderate depression due to his current illness. is bedside. They are dismayed with the seriousness of his illness at this time and his prolonged hospital stays recently. They use aromatherapy interventions at home and welcome the addition of a scent patch to assist with nausea. He has no allergies to tape/adhesive and no allergies to scents. He has used the scent patches before and he demonstrates knowledge of use. He applies the patch appropriately himself and verbalizes understanding of when to remove it at 8 hours. Pt is asking for a "catch up" dose of medication - in addition to the medication that he has received for pain. He feels that if his pain and nausea was better managed, he would be able to get some rest. He has not had quality sleep due to the frequency of vomiting, he is tired and worn. Call to Dr. Vega. Pain meds adjusted at this time. Presented that pt and are asking for GI consult. Will remain available. Pt is chronically sick-appearing. Reports that he is sick a lot. He has many providers
--- NOTE | 2019-10-30 18:30 | NUR ---
SHIFT SUMMARY PATIENT IS ALERT AND ORIENTED INDEPENDENT IN THE ROOM. PATIENT HAS BEEN NAUSEOUS SINCE I GOT HERE THIS MORNING. WE HAVE BATTLED NAUSEA WITH MEDICATIONS EVERY 4-6 HOURS. HE IS LAYERED WITH ZOFRAN AND PHENERGAN. HE HAS REQUIRED PAIN MEDICATIONS CONSISTENTLY. HE HAS A WARM PAD ON HIS STOMACH, HE NEEDS A HEATING PAD. SPOKE WITH DR. CONNORS ABOUT THE PATIENT'S PAIN MANAGEMENT AT THIS TIME. PALLIATIVE CARE IS INVOLVED AFTER SPEAKING WITH THE PATIENT. HE IS STILL FEELING LIKE HIS NAUSEA AND PAIN ARE NOT MANAGED. PAIN MEDICATIONS HAVE BEEN REEVALUATED AND ADJUSTED PER DR. CONNORS AND PALLIATIVE CARE. PATIENT HAS HAD 2450 IN EMESIS TODAY PLUS 3 UNMEASURED EMESIS TODAY. THIS IS IN HIS I&O. PATIENT WAS ALSO GIVEN A SURGICAL AND GASTRO CONSULT TO ASSESS FOR A DIFFERENT NEED IN HIS CARE.
[2019-10-31 05:20] LABS: International Normalized Ratio 1.27; Prothrombin Time Results 13.2 Sec (9.7-11.5)
--- NOTE | 2019-10-31 06:22 | NUR ---
SHIFT SUMMARY: VSS. TEMP 99.3. A/0X4. MAKING NEEDS KNOWN. REQUESTING PAIN MEDS EVERY 2 HOURS PROMPTLY. STATES MIDLINE ABDOMINAL PAIN 7-8/10. IMPROVES TO 6/10 WITH ANALGESICS. NAUSEA RESPONDING WELL TO PHENERGAN Q 4 HRS. NO VOMITING TONIGHT. PT REMAINS NPO FOR UPCOMING PROCEDURE. MIDLINE ABD DRSG CDI. VOIDING VERY DARK COLORED, STRONG SMELLING URINE. SLEPT INTERMITTENTLY THROUGH THE NIGHT. BED LOW, CALL BUTTON IN REACH.
--- NOTE | 2019-10-31 16:35 | NUR ---
PATIENT S/P PERCUTANEOUS DRAIN PLACEMENT TO L/MID ABDOMEN. COMPLAINS OF SEVERE PAIN TO ABDOMEN AND SURGICAL SITE CONTINUALLY AND REQUESTS PAIN MEDICATION Q2HRS PER EMAR WITH MODERATE EFFECTIVENESS; INITIAL PAIN REASSESSMENT PER EMAR SHOWS CONTINUED SEVERE PAIN AT THE CLOSE INTERVAL OF POST-ADMINISTRATION HOWEVER PATIENT STATES THE PAIN GETS BETTER WITH MORE TIME. POST OPERATIVE VITALS CONTINUE AND ARE STABLE. NO DRAINAGE NOTED IN DRAINAGE BAG AT THIS TIME. WILL CONTINUE TO MONITOR AND PROVIDE CARE TO PATIENT NEEDED.
[2019-11-01 05:00] LABS: Hematocrit 27.2 % (37.0-53.0); Hemoglobin 8.3 g/dL (13.5-17.5); Mean Corpuscular HGB 28.2 pg (26.0-34.0); Mean Corpuscular HGB Conc 30.5 g/dL (31.5-36.5); Mean Corpuscular Volume 93 fL (80-100); Mean Platelet Volume 8.6 fL (9.1-12.4); Platelet Count 918 K/mm3 (150-400); RDW Coefficient Variation 17.4 % (11.7-14.2); RDW Standard Deviation 59.4 fL (35.1-46.3); Red Blood Cell Count 2.94 M/mm3 (4.30-5.90)
[2019-11-01 05:34] LABS: Anion Gap 6 mmol/L (6-16); Blood Urea Nitrogen 6 mg/dL (8-24); Bun/Creatinine Ratio 11.3 (12.0-20.0); CO2, Blood 27 mmol/L (21-32); Calcium, Blood 8.1 mg/dL (8.5-10.1); Chloride, Blood 112 mmol/L (98-108); Creatinine, Blood 0.53 mg/dL (0.60-1.20); Glomerular Filtration Rate >60 (60-); Glucose, Blood 83 mg/dL (70-99); Potassium, Blood 3.6 mmol/L (3.5-5.5); Sodium, Blood 145 mmol/L (136-145)
--- NOTE | 2019-11-01 05:40 | NUR ---
SHIFT SUMMARY: NO ACUTE CHANGES OVERNIGHT. A/O X 4. COMMUNICATING NEEDS. TEMP 99.7. ABD INCISION DRESSING WITH SMALL AMOUNT OF SEROUS DRAINAGE. DRAIN TUBE PRODUCED 10CC SANG AND YELLOW/ECHAVARRIA DRAINAGE. STATES ABD PAIN FEELS LIKE A LARGE PAPERCUT AND MOVEMENT CREATED SHARP ABD PAIN AT THE DRAIN SIGHT. STATES NO POSITION FELT COMFORTABLE TONIGHT. SLEPT VERY MINIMALLY. MEDICATED Q2HRS W/PRN ANALGESICS AND Q4HRS WITH ANTIEMETIC. NO VOMITING TONIGHT. BOWEL TONES MORE ACTIVE THAN LAST NIGHT. PT STATES HE PRODUCED A BM ON 10/31. APPETITE RETURNING WITHOUT VOMITING. CALL LIGHT IN REACH. BED LOW.
--- NOTE | 2019-11-01 07:14 | NUR ---
PATIENT IS RESTING WELL ALTHOUGH HE STATES THAT HE FEELS LIKE THAT DRAIN IN HIS ABDOMEN IS CONSTANTLY STABBING HIM AND HE IS HAVING TROUBLE STAYING COMFORTABLE. EXPRESSED THAT HE SHOULD BE UP AND MOVING TODAY TO HELP HIS CIRCULATION. YESTERDAY THIS HELPED DISTRACT FROM HIS PAIN WELL. WILL CONTINUE TO MONITOR FOR CHANGES AND INCLUDE THERAPIES USED. PATIENT IS ALERT AND ORIENTED. SHIFT ASSESSMENT TO COME.
--- NOTE | 2019-11-01 16:36 | NUR ---
SHIFT SUMMARY PATIENT IS PLEASANT, ALERT AND ORIENTED AT THIS TIME. HE IS INDEPENDENT IN THE ROOM. PAIN MANAGEMENT IS STILL THE BIGGEST ISSUE FOR THE PATIENT. THE DRAIN IS PATENT AND DRAINING. DR. SZYMANSKI IRRIGATED THE DRAIN AND INCLUDED AN EXTRA STOPCOCK ON THE DRAIN TUBING.
--- NOTE | 2019-11-02 06:13 | NUR ---
SHIFT SUMMARY: NO ACUTE CHANGES. 1 EMESIS TONIGHT- 24 OZ. PT REPORTS IT WAS BROWN LIQUID- HAS BEEN DRINKING DARK SODA. REPORTS HAVING A BM ON 11/01 THAT WAS GREEN LIQUID. BT HYPERACTIVE. ABD FIRM AND TENDER, NON DISTENDED. MIDLINE INCISION WITH DRESSING CDI. ABD DRAIN SECURE AND WITHOUT ERYTHEMA AT INSERTION SITE- DRAINING SMALL TO MODERATE AMT OF BROWN LIQUID WITH WHITE PUS SETTLING TO BOTTOM OF BAG. CONT TO REQUEST PAIN MEDS Q2HRS AND ANTIEMETIC Q4HRS AT LEAST. STATES PAIN IS SOMEWHAT IMPROVED TONIGHT. BED LOW, CALL BUTTON IN REACH.
--- NOTE | 2019-11-02 16:30 | NUR ---
Spiritual Care inital note: Urbano is well-known to me from previous hospitalizations. This admission, he appears calm and relaxed. He spoke at length about his , Mari, and his concern for her feeling overwhelmed. Urbano responded well to gentle prison classification counselor and assurance. Affirmed love and offered prayer at bedside. No other concerns presented. I will remain available.
--- NOTE | 2019-11-02 19:11 | NUR ---
SHIFT SUMMARY: NO ACUTE CHANGES TO REPORT THIS SHIFT. PT A&O; CALM AND COOPERATIVE WITH CARE. MEDICATED FOR ABD PAIN AND NAUSEA PER EMAR. HX CHRON'S c RESECTION; ABD DRESSING IN PLACE; DRAIN IN PLACE TO GRAVITY; DRAINING GRAM NEGATIVE BACILLI & YEAST; IV & ORAL ABX CONTINUING. ABD CT SCHEDULED FOR 12/10 IN AM. REPORT GIVEN TO ONCOMING RN.
[2019-11-03 05:01] LABS: Hematocrit 29.1 % (37.0-53.0); Hemoglobin 9.1 g/dL (13.5-17.5); Mean Corpuscular HGB 27.9 pg (26.0-34.0); Mean Corpuscular HGB Conc 31.3 g/dL (31.5-36.5); Mean Corpuscular Volume 89 fL (80-100); Mean Platelet Volume 8.9 fL (9.1-12.4); Platelet Count 906 K/mm3 (150-400); RDW Coefficient Variation 17.6 % (11.7-14.2); RDW Standard Deviation 56.7 fL (35.1-46.3); Red Blood Cell Count 3.26 M/mm3 (4.30-5.90); White Blood Cell Count 14.32 K/mm3 (4.00-11.30)
[2019-11-03 05:35] LABS: Anion Gap 9 mmol/L (6-16); Blood Urea Nitrogen 3 mg/dL (8-24); Bun/Creatinine Ratio 5.4 (12.0-20.0); CO2, Blood 24 mmol/L (21-32); Chloride, Blood 108 mmol/L (98-108); Creatinine, Blood 0.56 mg/dL (0.60-1.20); Glomerular Filtration Rate >60 (60-); Glucose, Blood 64 mg/dL (70-99); Potassium, Blood 2.9 mmol/L (3.5-5.5); Sodium, Blood 141 mmol/L (136-145)
--- NOTE | 2019-11-03 06:01 | NUR ---
LIFT SUPERVISOR SUMMARY PT A/O X4. SLEPT OFF AND ON. PT IN CONSTANT PAIN FROM ABD INCISION. MEDICATED WITH DILAUDID 1MG IV X5 THIS SHIFT. PT COMPLAINED OF NAUSEA. PT HAD A 250ML EMESIS. ZOFRAN IV WAS GIVEN X1. ZOFRAN DID NOT HELP THE PT, PHENERGAN IV X1 WAS ALSO GIVEN. PT'S ABD DRESSING HAS A SPOT OF DRAINAGE. PT REFUSED TO HAVING DRESSING CHANGED AROUND ABD INCISION. HE STATED HE FEARED OF HAVING THE DRAIN/TUBE PULLED OUT. DRAIN IS PATENT AND DRAINING YELLOW CLOUDY FLUID. PT STARTED ORAL CONTRAST IN PREP FOR ABD. CT.
--- NOTE | 2019-11-03 18:05 | NUR ---
SHIFT SUMMARY: NO ACUTE EVENTS TO REPORT THIS SHIFT. PT A&OX4; CALM AND COOPERATIVE WITH CARE. MEDICATED FOR ABD PAIN PER EMAR. MEDICATED FOR NAUSEA X2 PER EMAR; NO EMESIS. DR SZYMANSKI REMOVED DRAIN THIS SHIFT; WINDOW DRESSING & GAUZE IN PLACEPATIENT PLACED IN CONTACT ISOLATION THIS SHIFT R/T ESBL IN ABSCESS. IV & PO ABX CONTINUING. WCTM.
--- NOTE | 2019-11-04 04:51 | NUR ---
Pain control continues to be focus. Pt received Dilaudid 1 mg IV about every 2 hrs for pain in abd between 7 and 9 out of 10. Abd wound draining slightly - clear drainage and abd dressing was reinforced with an abd pad. Alert and oriented. Call light in reach. Continues to receive antibiotics as ordered. COntact isolation precautions maintained. Call light in reach.
--- NOTE | 2019-11-04 18:09 | NUR ---
PATIENT IS ALERT AND ORIENTED AND COOPERATIVE WITH CARE. HE COMPLAINS OF ABDOMINAL PAIN, TREATED PER EMAR Q2H. HE USES THE HEATING PAD ON HIS ABDOMEN FOR PAIN WELL. HIS IS AT THE BEDSIDE NOW. COMPLAINED OF NAUSEA TWICE TODAY. HIS BLOOD PRESSURE WAS ELEVATED THIS AFTERNOON 174/109. DR. LANGFORD NOTIFIED. THE PATIENTS HOME DOSE OF VALSARTAN WAS SUBSTITUED FOR LOSARTAN AND STARTED THIS EVENING. WILL CONTINUE TO MONITOR.
--- NOTE | 2019-11-04 23:32 | NUR ---
BP WAS 167/106 AND HR WAS 64, DIGITAL MEDIA COORDINATOR NOTIFIED AND ORDER RECEIVED FOR HYDRALAZINE IV (SEE JAN), NO BP 145/91, HR 74. MED EFFECTIVE. WILL CONTINUE TO MONITOR. RESTING QUIETLY
[2019-11-05 05:46] LABS: BASOPHILS ABSOLUTE AUTO 0.07 K/mm3 (0.00-0.23); BASOPHILS PERCENT AUTO 1 % (0-2); EOSINOPHILS ABSOLUTE AUTO 0.35 K/mm3 (0.00-0.68); EOSINOPHILS PERCENT AUTO 2 % (0-6); Hematocrit 31.8 % (37.0-53.0); IMMATURE GRAN PERCENT AUTO 1 % (0-1); LYMPHOCYTES ABSOLUTE AUTO 1.43 K/mm3 (0.84-5.20); LYMPHOCYTES PERCENT AUTO 9 % (21-46); MONOCYTES ABSOLUTE AUTO 1.28 K/mm3 (0.16-1.47); MONOCYTES PERCENT AUTO 8 % (4-13); Mean Corpuscular HGB 27.9 pg (26.0-34.0); Mean Corpuscular HGB Conc 31.4 g/dL (31.5-36.5); Mean Corpuscular Volume 89 fL (80-100); Mean Platelet Volume 9.1 fL (9.1-12.4); NEUTROPHILS ABSOLUTE AUTO 12.07 K/mm3 (1.96-9.15); NEUTROPHILS PERCENT AUTO 79 % (41-73); Platelet Count 822 K/mm3 (150-400); RDW Coefficient Variation 18.4 % (11.7-14.2); RDW Standard Deviation 59.7 fL (35.1-46.3); Red Blood Cell Count 3.58 M/mm3 (4.30-5.90)
[2019-11-05 06:18] LABS: Alanine Aminotransfer (ALT/SGP 9 U/L (12-78); Albumin, Blood 2.2 g/dL (3.4-5.0); Albumin/Globulin Ratio 0.7 (0.8-1.8); Alk Phos 64 U/L (50-136); Anion Gap 4 mmol/L (6-16); Aspartate Aminotrans (AST/SGOT 8 U/L (12-37); Bilirubin, Total 0.2 mg/dL (0.1-1.0); Blood Urea Nitrogen 2 mg/dL (8-24); Bun/Creatinine Ratio 3.5 (12.0-20.0); CO2, Blood 30 mmol/L (21-32); Calcium, Blood 7.8 mg/dL (8.5-10.1); Chloride, Blood 109 mmol/L (98-108); Creatinine, Blood 0.58 mg/dL (0.60-1.20); Globulin, Blood 3.3 g/dL (2.2-4.0); Glomerular Filtration Rate >60 (60-); Glucose, Blood 84 mg/dL (70-99); Magnesium, Blood 1.4 mg/dL (1.6-2.4); Potassium, Blood 2.9 mmol/L (3.5-5.5); Sodium, Blood 143 mmol/L (136-145); Total Protein, Blood 5.5 g/dL (6.4-8.2)
--- NOTE | 2019-11-05 06:24 | NUR ---
CONTINUES TO HAVE [facility] HE RECEIVES DILAUDID 1 MG IV ABOUT EVERY 2 HRS. SURGICAL SITE DRESSING CLEAN, DRY AND INTACT. ABLE TO AMBULATE TO BATHROOM. IV ANTIBIOTICS, ETC ADMINISTERED PER MD ORDERS - SEE MAR FOR DETAILS. ALERT AND ORIENTED. CALL LIGHT IN REACH. ISOLATION PRECAUTIONS MAINTAINED.
--- NOTE | 2019-11-05 17:08 | NUR ---
SUMMARY PT RESTING QUIETLY IN BED, JUST BACK FROM CT SCAN, PT HAS BEEN MED PER EMAR FOR PAIN AND NAUSEA, ABD DRESSING CLEAN DRY AND INTACT, MID ABD INCISION UNDER THE DRESSING IS DRY WITH SCANT DRAINAGE, VSS, NO ACUTE CHANGES, WILL CONT TO MONITOR
--- NOTE | 2019-11-06 04:01 | NUR ---
OXYCODONE OXYCODONE ORDERED PRN FOR PAIN. OK FOR PT TO RECEIVE OXYCODONE WHILE TAKING FLUCONAZOLE PER PHARMACIST LAVINIA SAUNDERS.
[2019-11-06 05:24] LABS: BASOPHILS ABSOLUTE AUTO 0.09 K/mm3 (0.00-0.23); BASOPHILS PERCENT AUTO 1 % (0-2); EOSINOPHILS ABSOLUTE AUTO 0.53 K/mm3 (0.00-0.68); EOSINOPHILS PERCENT AUTO 5 % (0-6); Hematocrit 31.3 % (37.0-53.0); Hemoglobin 9.5 g/dL (13.5-17.5); IMMATURE GRAN ABSOLUTE AUTO 0.04 K/mm3 (0.00-0.10); IMMATURE GRAN PERCENT AUTO 0 % (0-1); LYMPHOCYTES PERCENT AUTO 11 % (21-46); MONOCYTES PERCENT AUTO 9 % (4-13); Mean Corpuscular HGB 27.6 pg (26.0-34.0); Mean Corpuscular HGB Conc 30.4 g/dL (31.5-36.5); Mean Corpuscular Volume 91 fL (80-100); NEUTROPHILS PERCENT AUTO 75 % (41-73); Platelet Count 721 K/mm3 (150-400); RDW Standard Deviation 62.4 fL (35.1-46.3); Red Blood Cell Count 3.44 M/mm3 (4.30-5.90); White Blood Cell Count 11.66 K/mm3 (4.00-11.30)
[2019-11-06 05:44] LABS: Alanine Aminotransfer (ALT/SGP 11 U/L (12-78); Albumin, Blood 2.1 g/dL (3.4-5.0); Albumin/Globulin Ratio 0.6 (0.8-1.8); Alk Phos 64 U/L (50-136); Anion Gap 4 mmol/L (6-16); Aspartate Aminotrans (AST/SGOT 12 U/L (12-37); Bilirubin, Total 0.1 mg/dL (0.1-1.0); Blood Urea Nitrogen 2 mg/dL (8-24); Bun/Creatinine Ratio 4.1 (12.0-20.0); CO2, Blood 28 mmol/L (21-32); Calcium, Blood 7.9 mg/dL (8.5-10.1); Chloride, Blood 111 mmol/L (98-108); Creatinine, Blood 0.49 mg/dL (0.60-1.20); Globulin, Blood 3.3 g/dL (2.2-4.0); Glomerular Filtration Rate >60 (60-); Glucose, Blood 88 mg/dL (70-99); Phosphorus, Blood 2.1 mg/dL (2.5-4.9); Potassium, Blood 3.3 mmol/L (3.5-5.5); Sodium, Blood 143 mmol/L (136-145); Total Protein, Blood 5.4 g/dL (6.4-8.2)
--- NOTE | 2019-11-06 17:06 | NUR ---
SUMMARY PT RESTING QUIETLY IN BED, WAKES EASILY, HAS BEEN PLEASANT AND COOPERATIVE WITH CARE, MED PER EMAR FOR PAIN AND NAUSEA, VSS, NO ACUTE CHANGES, WILL CONT TO MONITOR
--- NOTE | 2019-11-07 08:22 | NUR ---
SHIFT SUMMARY: PATIENT IS A&OX4, UP INDEPENDANTLY IN ROOM. REPORTING LOOSE STOOLS X 5 IN THE LAST 24 HOURS. PATIENT REPORTS THIS IS BASELINE WITH CRONES. BILATERAL HIP DEPENDANT EDEMA IS OBSERVED. PATIENT IS ENCORAGED TO AMBULATE MORE AND SIT IN RECLINER FOR MEALS. CONTINUES TO REPORT ABD, PAIN AND NAUSEA, IV DILUADID IS REQUIRED Q 2 NOURS AND IS EFFECTIVE PAIN CONTROL. IV ZOFRAN IS EFFECTIV FOR NAUSEA.
[2019-11-07 08:32] LABS: Alanine Aminotransfer (ALT/SGP 8 U/L (12-78); Albumin, Blood 2.2 g/dL (3.4-5.0); Albumin/Globulin Ratio 0.7 (0.8-1.8); Alk Phos 83 U/L (50-136); Anion Gap 5 mmol/L (6-16); Aspartate Aminotrans (AST/SGOT 15 U/L (12-37); Bilirubin, Total 0.1 mg/dL (0.1-1.0); Blood Urea Nitrogen 3 mg/dL (8-24); Bun/Creatinine Ratio 5.1 (12.0-20.0); CO2, Blood 29 mmol/L (21-32); Calcium, Blood 7.9 mg/dL (8.5-10.1); Chloride, Blood 110 mmol/L (98-108); Creatinine, Blood 0.59 mg/dL (0.60-1.20); Globulin, Blood 3.2 g/dL (2.2-4.0); Glomerular Filtration Rate >60 (60-); Glucose, Blood 82 mg/dL (70-99); Potassium, Blood 3.6 mmol/L (3.5-5.5); Sodium, Blood 144 mmol/L (136-145); Total Protein, Blood 5.4 g/dL (6.4-8.2)
[2019-11-07 09:01] LABS: BASOPHILS ABSOLUTE AUTO 0.07 K/mm3 (0.00-0.23); BASOPHILS PERCENT AUTO 1 % (0-2); EOSINOPHILS ABSOLUTE AUTO 0.62 K/mm3 (0.00-0.68); EOSINOPHILS PERCENT AUTO 6 % (0-6); Hematocrit 31.2 % (37.0-53.0); Hemoglobin 9.5 g/dL (13.5-17.5); IMMATURE GRAN ABSOLUTE AUTO 0.02 K/mm3 (0.00-0.10); IMMATURE GRAN PERCENT AUTO 0 % (0-1); LYMPHOCYTES ABSOLUTE AUTO 1.25 K/mm3 (0.84-5.20); LYMPHOCYTES PERCENT AUTO 13 % (21-46); MONOCYTES ABSOLUTE AUTO 0.84 K/mm3 (0.16-1.47); MONOCYTES PERCENT AUTO 9 % (4-13); Mean Corpuscular HGB Conc 30.4 g/dL (31.5-36.5); Mean Corpuscular Volume 92 fL (80-100); Mean Platelet Volume 8.6 fL (9.1-12.4); NEUTROPHILS ABSOLUTE AUTO 7.06 K/mm3 (1.96-9.15); NEUTROPHILS PERCENT AUTO 72 % (41-73); Platelet Count 649 K/mm3 (150-400); RDW Coefficient Variation 19.4 % (11.7-14.2); RDW Standard Deviation 65.5 fL (35.1-46.3); Red Blood Cell Count 3.39 M/mm3 (4.30-5.90); White Blood Cell Count 9.86 K/mm3 (4.00-11.30)
--- NOTE | 2019-11-07 19:07 | NUR ---
SHIFT SUMMARY. A&OX4, INDEPENDENT IN ROOM. PT DENIES SOB, LUNGS CLEAR. PT WITH INTERMITTENTENT NAUSEA MANAGED WELL WITH CURRENT ORDERS, NO VOMITTING. PT WITH CONSTANT MID ABD PAIN REQUIRING SEVERAL DOSES OF PAIN MEDICATIONS THROUGHOUT SHIFT. DR. LANGFORD TITRATING IV PAIN MEDICATION DOWN AND ADDING PO DILAUDID, PT EDUCATED THAT IT IS TO PREPARE PT FOR FUTURE DISCHARGE, ALTHOUGH TIME OF D/C HAS YET TO BE DETERMINED, PT AGREED WITH PLAN OF CARE . PT AND PT'S REQUEST TO SPEAK WITH DR. LANGFORD REGARDING PT'S PLAN OF CARE AT 1700, DR. LANGFORD NOTIFIED, SHE REPORTED THAT SHE WILL CALL TOMORROW. PT NOTIFIED, REPORTED THAT SHE WOULD BE OFF WORK AT 1430 AND BE AVAILABLE IN THE HOSPITAL AT 1500 TO SPEAK WITH PHYSICIAN. DRESSING TO ABD CHANGED, NO S/SX OF TISSUE INFECTION, SMALL AMOUNT OF YELLOW/GREEN/CLEAR DRAINAGE.
--- NOTE | 2019-11-08 03:55 | NUR ---
TRANSLATION DIRECTOR SUMMARY REPORT RECIEVED FROM ANOTHER MEDICAL FLOOR NURSE AT 0232. PER HANDOFF REPORT, PT HAS CALLED FOR PRN PAIN MEDS EACH TIME DUE FOR PAIN IN ABD. PER HANDOFF REPORT, HOSPITALIST WAS CALLED REGARDING PHENERGAN. PT REPORTED BURNING PAIN WHEN PHENERGAN WAS PUSHED. NEW ORDER OF COMPAZINE 5 MG IV Q8 PRN PUT IN, PHENERGAN DC'D. INDEPENDENT IN ROOM. ABD DRESSING INTACT, WITH A SMALL SHADOW OF BILE DRAINAGE PEAKING THROUGH. OTHERWISE, VSS, PT SLEPT WELL. WILL CONTINUE TO MONITOR.
--- NOTE | 2019-11-08 17:43 | NUR ---
SHIFT SUMMARY NO ACUTE CHANGES. PATIENT MEDICATED FREQUENTLY FOR PAIN THIS SHIFT. PATIENT'S PAIN DIFFICULT TO MANAGE. PATIENT DENIES NAUSEA AND SHORTNES OF BREATH. PATIENT UP INDEPENDENT IN ROOM. PATIENT REDRESSED HIS MIDLINE INCISION WITHOUT NURSING ASSISTANCE. DRESSING CLEAN, DRY, INTACT. CALL LIGHT IN REACH.
--- NOTE | 2019-11-09 04:18 | NUR ---
SHIFT SUMMARY- PT. A&O, INDEPENDENT IN ROOM. MIDLINE INCISION C/D/I. MEDICATED PT. FOR PAIN OFTEN DURING THE NIGHT. PT. TOLERATED WELL, SLEPT ON/OFF DURING THE NIGHT. NO ACUTE CHANGES TO PT. CONDITION, CALL LIGHT WITHIN REACH AND SIDE RAILS UP X2. WILL CONT TO MONITOR.
[2019-11-09 05:18] LABS: BASOPHILS ABSOLUTE AUTO 0.07 K/mm3 (0.00-0.23); BASOPHILS PERCENT AUTO 1 % (0-2); EOSINOPHILS ABSOLUTE AUTO 0.73 K/mm3 (0.00-0.68); EOSINOPHILS PERCENT AUTO 5 % (0-6); Hematocrit 30.9 % (37.0-53.0); Hemoglobin 9.5 g/dL (13.5-17.5); IMMATURE GRAN ABSOLUTE AUTO 0.07 K/mm3 (0.00-0.10); IMMATURE GRAN PERCENT AUTO 1 % (0-1); LYMPHOCYTES ABSOLUTE AUTO 1.37 K/mm3 (0.84-5.20); LYMPHOCYTES PERCENT AUTO 9 % (21-46); MONOCYTES ABSOLUTE AUTO 1.12 K/mm3 (0.16-1.47); MONOCYTES PERCENT AUTO 7 % (4-13); Mean Corpuscular HGB 28.1 pg (26.0-34.0); Mean Corpuscular HGB Conc 30.7 g/dL (31.5-36.5); Mean Corpuscular Volume 91 fL (80-100); Mean Platelet Volume 8.8 fL (9.1-12.4); NEUTROPHILS ABSOLUTE AUTO 12.05 K/mm3 (1.96-9.15); NEUTROPHILS PERCENT AUTO 78 % (41-73); Platelet Count 517 K/mm3 (150-400); RDW Coefficient Variation 19.9 % (11.7-14.2); Red Blood Cell Count 3.38 M/mm3 (4.30-5.90); White Blood Cell Count 15.41 K/mm3 (4.00-11.30)
[2019-11-09 05:41] LABS: Alanine Aminotransfer (ALT/SGP 8 U/L (12-78); Albumin, Blood 2.1 g/dL (3.4-5.0); Albumin/Globulin Ratio 0.7 (0.8-1.8); Alk Phos 64 U/L (50-136); Anion Gap 3 mmol/L (6-16); Aspartate Aminotrans (AST/SGOT 10 U/L (12-37); Bilirubin, Total 0.3 mg/dL (0.1-1.0); Blood Urea Nitrogen 6 mg/dL (8-24); Bun/Creatinine Ratio 11.5 (12.0-20.0); CO2, Blood 31 mmol/L (21-32); Calcium, Blood 7.9 mg/dL (8.5-10.1); Chloride, Blood 108 mmol/L (98-108); Creatinine, Blood 0.52 mg/dL (0.60-1.20); Globulin, Blood 3.1 g/dL (2.2-4.0); Glomerular Filtration Rate >60 (60-); Glucose, Blood 95 mg/dL (70-99); Magnesium, Blood 1.6 mg/dL (1.6-2.4); Potassium, Blood 3.9 mmol/L (3.5-5.5); Sodium, Blood 142 mmol/L (136-145); Total Protein, Blood 5.2 g/dL (6.4-8.2)
--- NOTE | 2019-11-09 17:50 | NUR ---
SHIFT SUMMARY- PT A/O, PLESANT, COOPERATIVE. PT RECIEVED CONSULTATION FROM INFECTION CONTROL, PT WILL RECIEVE IV ANTIBIOTICS ON AN OUTPATIENT BASIS. WILL POSSIBLY DISCHARGE TOMORROW
[2019-11-10 05:07] LABS: BASOPHILS ABSOLUTE AUTO 0.06 K/mm3 (0.00-0.23); BASOPHILS PERCENT AUTO 0 % (0-2); EOSINOPHILS ABSOLUTE AUTO 0.69 K/mm3 (0.00-0.68); EOSINOPHILS PERCENT AUTO 5 % (0-6); Hematocrit 29.7 % (37.0-53.0); Hemoglobin 8.9 g/dL (13.5-17.5); IMMATURE GRAN ABSOLUTE AUTO 0.05 K/mm3 (0.00-0.10); IMMATURE GRAN PERCENT AUTO 0 % (0-1); LYMPHOCYTES ABSOLUTE AUTO 1.16 K/mm3 (0.84-5.20); LYMPHOCYTES PERCENT AUTO 9 % (21-46); MONOCYTES ABSOLUTE AUTO 0.95 K/mm3 (0.16-1.47); MONOCYTES PERCENT AUTO 7 % (4-13); Mean Corpuscular HGB 27.8 pg (26.0-34.0); Mean Corpuscular Volume 93 fL (80-100); Mean Platelet Volume 9.5 fL (9.1-12.4); NEUTROPHILS ABSOLUTE AUTO 10.64 K/mm3 (1.96-9.15); NEUTROPHILS PERCENT AUTO 79 % (41-73); Platelet Count 511 K/mm3 (150-400); RDW Standard Deviation 67.2 fL (35.1-46.3); White Blood Cell Count 13.55 K/mm3 (4.00-11.30)
[2019-11-10 05:24] LABS: Albumin, Blood 2.2 g/dL (3.4-5.0); Anion Gap 4 mmol/L (6-16); Blood Urea Nitrogen 9 mg/dL (8-24); Bun/Creatinine Ratio 17.8 (12.0-20.0); CO2, Blood 30 mmol/L (21-32); Chloride, Blood 109 mmol/L (98-108); Creatinine, Blood 0.51 mg/dL (0.60-1.20); Glomerular Filtration Rate >60 (60-); Glucose, Blood 110 mg/dL (70-99); Phosphorus, Blood 2.6 mg/dL (2.5-4.9); Potassium, Blood 3.5 mmol/L (3.5-5.5); Sodium, Blood 143 mmol/L (136-145)
--- NOTE | 2019-11-10 06:02 | NUR ---
SHIFT SUMMARY- NO ACUTE CHANGES OVERNIGHT. PT. CONTINUED TO HAVE PAIN AND NAUSEA T/O THE NIGHT. MEDICATED PER EMAR, WITH MINIMAL RELIEF. PT. SLEPT ON/OFF DURING THE NIGHT, NO APPARENT DISTRESS NOTED. PLAN FOR POSSIBLE D/C TODAY WITH NEWLY PLACED POWERGLIDE FOR OUTPT ABX TX. CALL LIGHT WITHIN REACH AND SIDE RAILS UP X2. WILL CONT TO MONITOR.
[2019-11-10] MEDS ORDERED: ERTAPENEM1 GM IV ×2 (12:49)
[2019-11-10] MEDS ORDERED: Florastor250 MG PO ×2 (12:50)
[2019-11-10] MEDS ORDERED: OXYMORPHONE HCL5 MG PO ×2 (12:57)
--- NOTE | 2019-11-10 17:06 | NUR ---
PT. GETTING DRESSED TO GO HOME. IV ANTIBIOTIC COMPLETE. POWER GLIDE FLUSHED WITH 10CC NS. WOUND ON MID ABDOMEN CLEANED AND NEW DRESSING PLACED. STILL SLIGHT DRAINAGE OF SS FLUID DRAINING. NO REDNESS NOTED. DISCHARGE INSTRUCTIONS GIVEN AND PT. DISCHARGED HOME.
--- NOTE | 2019-11-10 17:30 | NUR ---
PT. TAKEN DOWNSTAIRS VIA WC TO RIDE TO TAKE HIM HOME
== END 2019-11-10 17:30 | disposition home or self-care (01) | DRG 862 ==
LOC: ER 23:45 → MEDS 10-29 05:27 → PCU 10-29 05:27 → MEDS 10-29 10:56 → ENPENDDIS 11-10 10:15 → MEDS 11-10 17:30
PROVIDERS: Emergency Medicine; Internal Medicine; Surgery; ADMIT Family Medicine
PROC: 0D9W30Z Drainage of Peritoneum with Drainage Device, Percutaneous Approach (ICD-10-PCS; principal; 2019-10-31)
PROC: 3C1ZX8Z Irrigation of Indwelling Device using Irrigating Substance, External Approach (ICD-10-PCS; 2019-11-01)
DX: T81.44XA Sepsis following a procedure, initial encounter (principal); A41.50 Gram-negative sepsis, unspecified; J18.9 Pneumonia, unspecified organism; J95.89 Other postprocedural complications and disorders of respiratory system, not elsewhere classified; K50.80 Crohn's disease of both small and large intestine without complications; K68.11 Postprocedural retroperitoneal abscess; G43.909 Migraine, unspecified, not intractable, without status migrainosus; Z90.49 Acquired absence of other specified parts of digestive tract; F17.210 Nicotine dependence, cigarettes, uncomplicated; I10 Essential (primary) hypertension; M06.9 Rheumatoid arthritis, unspecified; D69.6 Thrombocytopenia, unspecified; K21.9 Gastro-esophageal reflux disease without esophagitis; M81.0 Age-related osteoporosis without current pathological fracture; Y83.8 Other surgical procedures as the cause of abnormal reaction of the patient, or of later complication, without mention of misadventure at the time of the procedure; Y73.1 Therapeutic (nonsurgical) and rehabilitative gastroenterology and urology devices associated with adverse incidents
CPT/HCPCS: 0097U; 36415; 49406; 71046; 74176; 74177; 80048; 80053; 80069; 81001; 83605; 83690; 83735; 84100; 84145; 85025; 85027; 85610; 85651; 85730; 86140; 87040; 87070; 87075; 87077; 87086; 87106; 87186; 87205; 90686; 96361; 96365; 96375; 96376; 99285-25; A9270; J0360; J0456; J0694; J0696; J0780; J1170; J1335; J1450; J1650; J2185; J2405; J2550; J2916; J3475; J7040; J7050; J7120; Q9967

== ENCOUNTER 2019-11-11 00:06 | Day surgery (SDC) | payer OTHER ==
[~2019-11-11 00:06] MED LIST changes: +ERTAPENEM1 GM IV; +Florastor250 MG PO; +OMEPRAZOLE20 MG PO
--- NOTE | 2019-11-11 11:15 | NUR ---
PT IS VERY SLEEPY. SLURRED SPEACH.
== END 2019-11-11 11:09 | disposition home or self-care (01) ==
LOC: ATC 00:06
DX: K65.1 Peritoneal abscess (principal); I10 Essential (primary) hypertension; G43.909 Migraine, unspecified, not intractable, without status migrainosus; M06.9 Rheumatoid arthritis, unspecified; D64.9 Anemia, unspecified; G89.29 Other chronic pain; M54.9 Dorsalgia, unspecified; Z90.49 Acquired absence of other specified parts of digestive tract; Z88.2 Allergy status to sulfonamides; Z88.5 Allergy status to narcotic agent; Z88.8 Allergy status to other drugs, medicaments and biological substances; Z91.041 Radiographic dye allergy status; Z79.2 Long term (current) use of antibiotics; Z79.899 Other long term (current) drug therapy; Z87.891 Personal history of nicotine dependence
CPT/HCPCS: 96365; J1335

== ENCOUNTER 2019-11-12 00:08 | Day surgery (SDC) | payer OTHER | END 2019-11-12 16:43 | disposition home or self-care (01) | LOC: ATC 00:08 | DX: K65.1 Peritoneal abscess (principal); I10 Essential (primary) hypertension; G43.909 Migraine, unspecified, not intractable, without status migrainosus; M06.9 Rheumatoid arthritis, unspecified; D64.9 Anemia, unspecified; G89.29 Other chronic pain; M54.9 Dorsalgia, unspecified; Z90.49 Acquired absence of other specified parts of digestive tract; Z88.2 Allergy status to sulfonamides; Z88.5 Allergy status to narcotic agent; Z88.8 Allergy status to other drugs, medicaments and biological substances; Z91.041 Radiographic dye allergy status; Z79.2 Long term (current) use of antibiotics; Z79.899 Other long term (current) drug therapy; Z87.891 Personal history of nicotine dependence | CPT/HCPCS: 96365; J1335 ==

== ENCOUNTER 2019-11-13 00:41 | Day surgery (SDC) | payer OTHER | END 2019-11-13 23:53 | disposition home or self-care (01) | LOC: ATC 00:41 | DX: K65.1 Peritoneal abscess (principal); I10 Essential (primary) hypertension; J18.1 Lobar pneumonia, unspecified organism; R19.7 Diarrhea, unspecified; A41.9 Sepsis, unspecified organism; D63.8 Anemia in other chronic diseases classified elsewhere; D47.3 Essential (hemorrhagic) thrombocythemia; Z88.2 Allergy status to sulfonamides; Z88.8 Allergy status to other drugs, medicaments and biological substances; Z88.6 Allergy status to analgesic agent; Z91.041 Radiographic dye allergy status; Z79.899 Other long term (current) drug therapy; Z87.891 Personal history of nicotine dependence | CPT/HCPCS: 96365; J1335 ==

== ENCOUNTER 2019-11-14 00:43 | Day surgery (SDC) | payer OTHER | END 2019-11-14 22:41 | disposition home or self-care (01) | LOC: ATC 00:43 | DX: K65.1 Peritoneal abscess (principal); I10 Essential (primary) hypertension; G43.909 Migraine, unspecified, not intractable, without status migrainosus; M06.9 Rheumatoid arthritis, unspecified; Z79.2 Long term (current) use of antibiotics; Z79.52 Long term (current) use of systemic steroids; Z79.899 Other long term (current) drug therapy; Z88.5 Allergy status to narcotic agent; Z88.2 Allergy status to sulfonamides; Z88.8 Allergy status to other drugs, medicaments and biological substances; Z87.891 Personal history of nicotine dependence; Z90.49 Acquired absence of other specified parts of digestive tract; Z91.041 Radiographic dye allergy status | CPT/HCPCS: J1335 ==

== ENCOUNTER 2019-11-15 00:26 | Day surgery (SDC) | payer OTHER | END 2019-11-15 17:16 | disposition home or self-care (01) | LOC: ATC 00:26 | DX: K65.1 Peritoneal abscess (principal); I10 Essential (primary) hypertension; G43.909 Migraine, unspecified, not intractable, without status migrainosus; M06.9 Rheumatoid arthritis, unspecified; Z79.2 Long term (current) use of antibiotics; Z79.52 Long term (current) use of systemic steroids; Z79.899 Other long term (current) drug therapy; Z88.5 Allergy status to narcotic agent; Z88.8 Allergy status to other drugs, medicaments and biological substances; Z88.2 Allergy status to sulfonamides; Z87.891 Personal history of nicotine dependence; Z91.041 Radiographic dye allergy status; Z90.49 Acquired absence of other specified parts of digestive tract | CPT/HCPCS: 96365; J1335 ==

== ENCOUNTER 2019-11-16 00:04 | Day surgery (SDC) | payer OTHER | END 2019-11-16 16:57 | disposition home or self-care (01) | LOC: ATC 00:04 | DX: K65.1 Peritoneal abscess (principal); I10 Essential (primary) hypertension; G43.909 Migraine, unspecified, not intractable, without status migrainosus; M06.9 Rheumatoid arthritis, unspecified; G89.29 Other chronic pain; M54.9 Dorsalgia, unspecified; D64.9 Anemia, unspecified; Z79.2 Long term (current) use of antibiotics; Z79.899 Other long term (current) drug therapy; Z90.49 Acquired absence of other specified parts of digestive tract; Z88.6 Allergy status to analgesic agent; Z88.2 Allergy status to sulfonamides; Z88.8 Allergy status to other drugs, medicaments and biological substances; Z87.891 Personal history of nicotine dependence; Z91.041 Radiographic dye allergy status | CPT/HCPCS: 96365; J1335 ==

== ENCOUNTER 2019-11-17 00:07 | Day surgery (SDC) | payer OTHER | END 2019-11-17 16:43 | disposition home or self-care (01) | LOC: ATC 00:07 | DX: K65.1 Peritoneal abscess (principal); I10 Essential (primary) hypertension; G43.909 Migraine, unspecified, not intractable, without status migrainosus; M06.9 Rheumatoid arthritis, unspecified; G89.29 Other chronic pain; M54.9 Dorsalgia, unspecified; D64.9 Anemia, unspecified; Z79.2 Long term (current) use of antibiotics; Z79.899 Other long term (current) drug therapy; Z90.49 Acquired absence of other specified parts of digestive tract; Z88.6 Allergy status to analgesic agent; Z88.2 Allergy status to sulfonamides; Z88.8 Allergy status to other drugs, medicaments and biological substances; Z87.891 Personal history of nicotine dependence; Z91.041 Radiographic dye allergy status | CPT/HCPCS: 96365; J1335 ==

== ENCOUNTER 2019-11-18 14:37 | Day surgery (SDC) | payer OTHER | END 2019-12-01 22:46 | disposition home or self-care (01) | LOC: ATC 14:37 | DX: K65.1 Peritoneal abscess (principal); K50.90 Crohn's disease, unspecified, without complications; I10 Essential (primary) hypertension; G43.909 Migraine, unspecified, not intractable, without status migrainosus; G89.29 Other chronic pain; M54.9 Dorsalgia, unspecified; M06.9 Rheumatoid arthritis, unspecified; D64.9 Anemia, unspecified; Z90.49 Acquired absence of other specified parts of digestive tract; Z88.2 Allergy status to sulfonamides; Z88.5 Allergy status to narcotic agent; Z88.8 Allergy status to other drugs, medicaments and biological substances; Z87.891 Personal history of nicotine dependence; Z79.2 Long term (current) use of antibiotics; Z79.899 Other long term (current) drug therapy; Z51.5 Encounter for palliative care | CPT/HCPCS: 96365; J1335 ==

== ENCOUNTER 2019-12-13 17:19 | Emergency (ER) | payer OTHER ==
[~2019-12-13] VITALS: Ht 170.2 cm; Wt 59.0 kg
[2019-12-13 18:02] LABS: BASOPHILS ABSOLUTE AUTO 0.05 K/mm3 (0.00-0.23); BASOPHILS PERCENT AUTO 1 % (0-2); EOSINOPHILS PERCENT AUTO 5 % (0-6); Hematocrit 39.7 % (37.0-53.0); Hemoglobin 12.3 g/dL (13.5-17.5); IMMATURE GRAN ABSOLUTE AUTO 0.03 K/mm3 (0.00-0.10); IMMATURE GRAN PERCENT AUTO 0 % (0-1); LYMPHOCYTES ABSOLUTE AUTO 1.47 K/mm3 (0.84-5.20); LYMPHOCYTES PERCENT AUTO 14 % (21-46); MONOCYTES ABSOLUTE AUTO 0.67 K/mm3 (0.16-1.47); MONOCYTES PERCENT AUTO 6 % (4-13); Mean Corpuscular HGB 28.2 pg (26.0-34.0); Mean Corpuscular Volume 91 fL (80-100); Mean Platelet Volume 9.5 fL (9.1-12.4); NEUTROPHILS PERCENT AUTO 74 % (41-73); Platelet Count 374 K/mm3 (150-400); RDW Coefficient Variation 16.9 % (11.7-14.2); Red Blood Cell Count 4.36 M/mm3 (4.30-5.90); White Blood Cell Count 10.42 K/mm3 (4.00-11.30)
[2019-12-13 18:20] LABS: Alanine Aminotransfer (ALT/SGP 15 U/L (12-78); Albumin, Blood 3.4 g/dL (3.4-5.0); Albumin/Globulin Ratio 0.9 (0.8-1.8); Alk Phos 105 U/L (50-136); Anion Gap 4 mmol/L (6-16); Aspartate Aminotrans (AST/SGOT 10 U/L (12-37); Bilirubin, Total 0.3 mg/dL (0.1-1.0); Blood Urea Nitrogen 8 mg/dL (8-24); CO2, Blood 28 mmol/L (21-32); Calcium, Blood 8.9 mg/dL (8.5-10.1); Chloride, Blood 107 mmol/L (98-108); Creatinine, Blood 0.57 mg/dL (0.60-1.20); Globulin, Blood 3.8 g/dL (2.2-4.0); Glomerular Filtration Rate >60 (60-); Glucose, Blood 100 mg/dL (70-99); Potassium, Blood 3.7 mmol/L (3.5-5.5); Sodium, Blood 139 mmol/L (136-145); Total Protein, Blood 7.2 g/dL (6.4-8.2)
== END 2019-12-13 18:34 | disposition home or self-care (01) ==
LOC: ER 17:19
PROVIDERS: Physician Assistant
DX: L76.34 Postprocedural seroma of skin and subcutaneous tissue following other procedure (principal); Z88.2 Allergy status to sulfonamides; Z88.8 Allergy status to other drugs, medicaments and biological substances; Z79.899 Other long term (current) drug therapy; I10 Essential (primary) hypertension; G43.909 Migraine, unspecified, not intractable, without status migrainosus; M06.9 Rheumatoid arthritis, unspecified; M54.9 Dorsalgia, unspecified; G89.29 Other chronic pain; Z87.891 Personal history of nicotine dependence
CPT/HCPCS: 80053; 85025; 87070; 87075; 87205; 99283

== ENCOUNTER 2019-12-15 17:33 | Emergency (ER) | payer OTHER ==
[~2019-12-15] VITALS: Ht 170.2 cm; Wt 61.2 kg
[2019-12-15 18:46] LABS: BASOPHILS ABSOLUTE AUTO 0.06 K/mm3 (0.00-0.23); BASOPHILS PERCENT AUTO 1 % (0-2); EOSINOPHILS ABSOLUTE AUTO 0.39 K/mm3 (0.00-0.68); EOSINOPHILS PERCENT AUTO 5 % (0-6); Hematocrit 40.8 % (37.0-53.0); Hemoglobin 12.6 g/dL (13.5-17.5); IMMATURE GRAN ABSOLUTE AUTO 0.01 K/mm3 (0.00-0.10); IMMATURE GRAN PERCENT AUTO 0 % (0-1); LYMPHOCYTES ABSOLUTE AUTO 1.37 K/mm3 (0.84-5.20); LYMPHOCYTES PERCENT AUTO 18 % (21-46); MONOCYTES ABSOLUTE AUTO 0.44 K/mm3 (0.16-1.47); MONOCYTES PERCENT AUTO 6 % (4-13); Mean Corpuscular HGB Conc 30.9 g/dL (31.5-36.5); Mean Corpuscular Volume 91 fL (80-100); Mean Platelet Volume 9.5 fL (9.1-12.4); NEUTROPHILS ABSOLUTE AUTO 5.23 K/mm3 (1.96-9.15); NEUTROPHILS PERCENT AUTO 70 % (41-73); Platelet Count 421 K/mm3 (150-400); RDW Coefficient Variation 16.6 % (11.7-14.2); RDW Standard Deviation 56.1 fL (35.1-46.3)
[2019-12-15 19:26] LABS: Alanine Aminotransfer (ALT/SGP 16 U/L (12-78); Albumin, Blood 3.4 g/dL (3.4-5.0); Albumin/Globulin Ratio 0.8 (0.8-1.8); Alk Phos 102 U/L (50-136); Anion Gap 6 mmol/L (6-16); Aspartate Aminotrans (AST/SGOT 10 U/L (12-37); Bilirubin, Total 0.2 mg/dL (0.1-1.0); Blood Urea Nitrogen 11 mg/dL (8-24); Bun/Creatinine Ratio 18.2 (12.0-20.0); CO2, Blood 28 mmol/L (21-32); Chloride, Blood 108 mmol/L (98-108); Creatinine, Blood 0.61 mg/dL (0.60-1.20); Globulin, Blood 4.1 g/dL (2.2-4.0); Glomerular Filtration Rate >60 (60-); Glucose, Blood 130 mg/dL (70-99); Sodium, Blood 142 mmol/L (136-145); Total Protein, Blood 7.5 g/dL (6.4-8.2)
== END 2019-12-16 00:11 | disposition home or self-care (01) ==
LOC: ER 17:33
PROVIDERS: Physician Assistant
DX: K63.2 Fistula of intestine (principal); K50.90 Crohn's disease, unspecified, without complications; Z88.8 Allergy status to other drugs, medicaments and biological substances; Z88.2 Allergy status to sulfonamides; Z88.6 Allergy status to analgesic agent; Z79.899 Other long term (current) drug therapy; G43.909 Migraine, unspecified, not intractable, without status migrainosus; Z87.891 Personal history of nicotine dependence
CPT/HCPCS: 36415; 74177; 80053; 83605; 85025; 96374-59; 96375; 99284-25; A9270; J1170; J3010; Q9967

== ENCOUNTER → 2020-03-08 | Outpatient (CLI) | payer OTHER | END | disposition home or self-care (01) | LOC: LAB 15:19 → LAB SHORT 15:19 | DX: K50.813 Crohn's disease of both small and large intestine with fistula (principal) | CPT/HCPCS: 87070; 87075; 87205 ==

== ENCOUNTER → 2020-03-25 | Outpatient (CLI) | payer OTHER ==
[2020-03-25 18:20] LABS: BASOPHILS ABSOLUTE AUTO 0.07 K/mm3 (0.00-0.23); BASOPHILS PERCENT AUTO 1 % (0-2); EOSINOPHILS ABSOLUTE AUTO 0.21 K/mm3 (0.00-0.68); EOSINOPHILS PERCENT AUTO 2 % (0-6); Hematocrit 39.9 % (37.0-53.0); Hemoglobin 12.2 g/dL (13.5-17.5); IMMATURE GRAN ABSOLUTE AUTO 0.05 K/mm3 (0.00-0.10); IMMATURE GRAN PERCENT AUTO 0 % (0-1); LYMPHOCYTES ABSOLUTE AUTO 1.84 K/mm3 (0.84-5.20); LYMPHOCYTES PERCENT AUTO 14 % (21-46); MONOCYTES ABSOLUTE AUTO 0.92 K/mm3 (0.16-1.47); MONOCYTES PERCENT AUTO 7 % (4-13); Mean Corpuscular HGB 29.8 pg (26.0-34.0); Mean Corpuscular HGB Conc 30.6 g/dL (31.5-36.5); Mean Corpuscular Volume 98 fL (80-100); Mean Platelet Volume 10.5 fL (9.1-12.4); NEUTROPHILS ABSOLUTE AUTO 9.77 K/mm3 (1.96-9.15); NEUTROPHILS PERCENT AUTO 76 % (41-73); Platelet Count 435 K/mm3 (150-400); RDW Coefficient Variation 15.9 % (11.7-14.2); RDW Standard Deviation 56.7 fL (35.1-46.3); Red Blood Cell Count 4.09 M/mm3 (4.30-5.90); White Blood Cell Count 12.86 K/mm3 (4.00-11.30)
[2020-03-25 18:39] LABS: Alanine Aminotransfer (ALT/SGP 20 U/L (12-78); Albumin, Blood 3.6 g/dL (3.4-5.0); Albumin/Globulin Ratio 1.2 (0.8-1.8); Alk Phos 111 U/L (50-136); Anion Gap 4 mmol/L (6-16); Aspartate Aminotrans (AST/SGOT 11 U/L (12-37); Bilirubin, Total 0.4 mg/dL (0.1-1.0); Blood Urea Nitrogen 9 mg/dL (8-24); Bun/Creatinine Ratio 13.4 (12.0-20.0); CO2, Blood 30 mmol/L (21-32); Calcium, Blood 8.4 mg/dL (8.5-10.1); Chloride, Blood 110 mmol/L (98-108); Creatinine, Blood 0.67 mg/dL (0.60-1.20); Globulin, Blood 2.9 g/dL (2.2-4.0); Glomerular Filtration Rate >60 (60-); Glucose, Blood 57 mg/dL (70-99); Potassium, Blood 3.9 mmol/L (3.5-5.5); Sodium, Blood 144 mmol/L (136-145); Total Protein, Blood 6.5 g/dL (6.4-8.2)
== END | disposition home or self-care (01) ==
LOC: LAB SHORT 16:33 → LAB 16:33
PROVIDERS: Family Medicine
DX: R05 Cough (principal)
CPT/HCPCS: 80053; 85025

== ENCOUNTER 2020-07-27 18:39 | Inpatient (IN) | payer OTHER ==
[~2020-07-27] VITALS: Ht 170.2 cm; Wt 61.6 kg
[~2020-07-27 18:39] MED LIST changes: +CLON.1 PO; +Roxicodone5 MG PO; +TRAZ100 PO
[2020-07-27 19:29] LABS: BASOPHILS ABSOLUTE AUTO 0.05 K/mm3 (0.00-0.23); BASOPHILS PERCENT AUTO 0 % (0-2); EOSINOPHILS ABSOLUTE AUTO 0.27 K/mm3 (0.00-0.68); EOSINOPHILS PERCENT AUTO 2 % (0-6); Hematocrit 31.3 % (37.0-53.0); Hemoglobin 9.4 g/dL (13.5-17.5); IMMATURE GRAN ABSOLUTE AUTO 0.06 K/mm3 (0.00-0.10); IMMATURE GRAN PERCENT AUTO 0 % (0-1); LYMPHOCYTES ABSOLUTE AUTO 1.93 K/mm3 (0.84-5.20); LYMPHOCYTES PERCENT AUTO 14 % (21-46); MONOCYTES PERCENT AUTO 7 % (4-13); Mean Corpuscular HGB 27.4 pg (26.0-34.0); Mean Corpuscular Volume 91 fL (80-100); Mean Platelet Volume 9.2 fL (9.1-12.4); NEUTROPHILS ABSOLUTE AUTO 10.62 K/mm3 (1.96-9.15); NEUTROPHILS PERCENT AUTO 77 % (41-73); Platelet Count 520 K/mm3 (150-400); RDW Coefficient Variation 16.5 % (11.7-14.2); RDW Standard Deviation 55.1 fL (35.1-46.3); Red Blood Cell Count 3.43 M/mm3 (4.30-5.90); White Blood Cell Count 13.83 K/mm3 (4.00-11.30)
[2020-07-27 19:51] LABS: Alanine Aminotransfer (ALT/SGP 26 U/L (12-78); Albumin/Globulin Ratio 0.9 (0.8-1.8); Alk Phos 84 U/L (50-136); Anion Gap 5 mmol/L (6-16); Aspartate Aminotrans (AST/SGOT 13 U/L (12-37); Bilirubin, Total 0.2 mg/dL (0.1-1.0); Blood Urea Nitrogen 12 mg/dL (8-24); Bun/Creatinine Ratio 14.7 (12.0-20.0); CO2, Blood 29 mmol/L (21-32); Calcium, Blood 8.2 mg/dL (8.5-10.1); Chloride, Blood 107 mmol/L (98-108); Creatinine, Blood 0.81 mg/dL (0.60-1.20); Globulin, Blood 3.3 g/dL (2.2-4.0); Glomerular Filtration Rate >60 (60-); Glucose, Blood 104 mg/dL (70-99); Potassium, Blood 3.7 mmol/L (3.5-5.5); Sodium, Blood 141 mmol/L (136-145); Total Protein, Blood 6.3 g/dL (6.4-8.2)
[2020-07-27] MEDS ORDERED: Cymbalta30 MG PO ×2 (21:25)
[2020-07-27] MEDS ORDERED: OXYMORPHONE HCL5 MG PO ×2 (21:26)
[2020-07-27] MEDS ORDERED: TAMSULOSIN HCL0.4 M1 PO ×2 (21:26)
[2020-07-27] MEDS ORDERED: TRAZ100 PO (21:27)
[2020-07-27] MEDS ORDERED: Deltasone 10 mg10 MG PO ×2 (21:43)
[2020-07-27] MEDS ORDERED: Vitamin B-121000 MCG PO ×2 (21:54)
[2020-07-28 04:55] LABS: BASOPHILS ABSOLUTE AUTO 0.05 K/mm3 (0.00-0.23); BASOPHILS PERCENT AUTO 1 % (0-2); EOSINOPHILS ABSOLUTE AUTO 0.57 K/mm3 (0.00-0.68); EOSINOPHILS PERCENT AUTO 5 % (0-6); Hematocrit 29.9 % (37.0-53.0); IMMATURE GRAN ABSOLUTE AUTO 0.03 K/mm3 (0.00-0.10); IMMATURE GRAN PERCENT AUTO 0 % (0-1); LYMPHOCYTES ABSOLUTE AUTO 2.39 K/mm3 (0.84-5.20); LYMPHOCYTES PERCENT AUTO 23 % (21-46); MONOCYTES ABSOLUTE AUTO 0.86 K/mm3 (0.16-1.47); MONOCYTES PERCENT AUTO 8 % (4-13); Mean Corpuscular HGB 27.6 pg (26.0-34.0); Mean Corpuscular HGB Conc 30.1 g/dL (31.5-36.5); Mean Corpuscular Volume 92 fL (80-100); Mean Platelet Volume 9.5 fL (9.1-12.4); NEUTROPHILS ABSOLUTE AUTO 6.65 K/mm3 (1.96-9.15); NEUTROPHILS PERCENT AUTO 63 % (41-73); Platelet Count 435 K/mm3 (150-400); RDW Coefficient Variation 16.4 % (11.7-14.2); RDW Standard Deviation 55.4 fL (35.1-46.3); Red Blood Cell Count 3.26 M/mm3 (4.30-5.90); White Blood Cell Count 10.55 K/mm3 (4.00-11.30)
[2020-07-28 05:48] LABS: Anion Gap 5 mmol/L (6-16); Blood Urea Nitrogen 10 mg/dL (8-24); Bun/Creatinine Ratio 13.7 (12.0-20.0); CO2, Blood 28 mmol/L (21-32); Chloride, Blood 112 mmol/L (98-108); Creatinine, Blood 0.73 mg/dL (0.60-1.20); Glomerular Filtration Rate >60 (60-); Glucose, Blood 79 mg/dL (70-99); Potassium, Blood 3.9 mmol/L (3.5-5.5); Sodium, Blood 145 mmol/L (136-145)
[2020-07-29 06:41] LABS: BASOPHILS ABSOLUTE AUTO 0.08 K/mm3 (0.00-0.23); BASOPHILS PERCENT AUTO 1 % (0-2); EOSINOPHILS ABSOLUTE AUTO 0.46 K/mm3 (0.00-0.68); EOSINOPHILS PERCENT AUTO 3 % (0-6); Hematocrit 32.7 % (37.0-53.0); IMMATURE GRAN ABSOLUTE AUTO 0.06 K/mm3 (0.00-0.10); IMMATURE GRAN PERCENT AUTO 0 % (0-1); LYMPHOCYTES ABSOLUTE AUTO 2.11 K/mm3 (0.84-5.20); LYMPHOCYTES PERCENT AUTO 13 % (21-46); MONOCYTES ABSOLUTE AUTO 1.16 K/mm3 (0.16-1.47); MONOCYTES PERCENT AUTO 7 % (4-13); Mean Corpuscular HGB 27.6 pg (26.0-34.0); Mean Corpuscular HGB Conc 30.6 g/dL (31.5-36.5); Mean Corpuscular Volume 90 fL (80-100); Mean Platelet Volume 9.4 fL (9.1-12.4); NEUTROPHILS ABSOLUTE AUTO 12.95 K/mm3 (1.96-9.15); NEUTROPHILS PERCENT AUTO 77 % (41-73); Platelet Count 495 K/mm3 (150-400); RDW Coefficient Variation 16.3 % (11.7-14.2); RDW Standard Deviation 54.4 fL (35.1-46.3); Red Blood Cell Count 3.62 M/mm3 (4.30-5.90); White Blood Cell Count 16.82 K/mm3 (4.00-11.30)
--- NOTE | 2020-07-29 06:50 | NUR ---
SHIFT SUMMARY PT IS A 45 Y/O MALE, ADMITTED FOR CROHNS DISEASE WITH A PREVIOUS ABD SURGICAL WOUND THAT HAS DEHISSED. PT IS A&O X 4, ABLE TO AMBULATE INDEPENDENTLY. HE WAS MEDICATED 3X WITH PRN IV DILAUDID, AND ONCE WITH PRN PO OXYCODONE. NO COMPLAINTS OF NAUSEA OR SOB. VITAL SIGNS STABLE. HE IS RECEIVING NS @ 100 ML/HR. PT DID NOT HAVE A BM, NO SAMPLE WAS TAKEN. NO OTHER ACUTE CHANGES IN PT CONDITION NOTED. WILL CONTINUE TO MONITOR AND TREAT PER EMAR UNTIL HAND OFF TO DAY SHIFT RN.
[2020-07-29 07:05] LABS: Anion Gap 5 mmol/L (6-16); Blood Urea Nitrogen 10 mg/dL (8-24); Bun/Creatinine Ratio 11.9 (12.0-20.0); CO2, Blood 27 mmol/L (21-32); Calcium, Blood 7.9 mg/dL (8.5-10.1); Chloride, Blood 113 mmol/L (98-108); Creatinine, Blood 0.84 mg/dL (0.60-1.20); Glomerular Filtration Rate >60 (60-); Glucose, Blood 92 mg/dL (70-99); Potassium, Blood 3.7 mmol/L (3.5-5.5); Sodium, Blood 145 mmol/L (136-145)
[2020-07-29 11:24] LABS: Adenovirus F 40/41 Not Detected (NOT DETECT); Astrovirus Not Detected (NOT DETECT); Campylobacter Sp Not Detected (NOT DETECT); Cryptosporidium Not Detected (NOT DETECT); Cyclospora Cayetanensis Not Detected (NOT DETECT); E. Coli O157 Not Detected (NOT DETECT); Entamoeba Histolytica Not Detected (NOT DETECT); Enteroaggregative E. coli-EAEC Not Detected (NOT DETECT); Enteropathogenic E. coli-EPEC Not Detected (NOT DETECT); Enterotoxigenic E. coli-ETEC Not Detected (NOT DETECT); Giardia Lamblia Not Detected (NOT DETECT); Norovirus GI/GII Not Detected (NOT DETECT); Plesiomonas Shigelloides Not Detected (NOT DETECT); Rotavirus A Not Detected (NOT DETECT); Salmonella Sp Not Detected (NOT DETECT); Sapovirus Not Detected (NOT DETECT); Shiga Toxin-prod E. coli-STEC Not Detected (NOT DETECT); Shigella/Enteroin E. coli-EIEC Not Detected (NOT DETECT); Vibrio Cholerae Not Detected (NOT DETECT); Vibrio Sp Not Detected (NOT DETECT); Yersinia Enterocolitica Not Detected (NOT DETECT)
--- NOTE | 2020-07-29 17:58 | NUR ---
SHIFT SUMMARY- PT IS A/O, PLESANT AND COOPERATIVE. HE IS ON A FULL LIQUID DIET AND IS TOLERATING WELL. HE IS RECIEVING PAIN MEDICATIONS PRN. HE SLEPT FOR SEVERAL HOURS THIS AFTERNOON. HE HAD TWO BM, ONE WAS SENT TO LAB FOR TESTING. HE IS RECIEVING IV ABX. HIS WIF WAS AT BEDSIDE THIS MORNING AND HIS MOTHER THIS AFTERNOON. HE IS REQUESTING A SECOND OPINION ON POSSIBLE SURGERY.
[2020-07-30 05:09] LABS: BASOPHILS ABSOLUTE AUTO 0.03 K/mm3 (0.00-0.23); BASOPHILS PERCENT AUTO 0 % (0-2); EOSINOPHILS ABSOLUTE AUTO 0.16 K/mm3 (0.00-0.68); EOSINOPHILS PERCENT AUTO 1 % (0-6); Hematocrit 29.5 % (37.0-53.0); Hemoglobin 8.6 g/dL (13.5-17.5); IMMATURE GRAN ABSOLUTE AUTO 0.09 K/mm3 (0.00-0.10); IMMATURE GRAN PERCENT AUTO 1 % (0-1); LYMPHOCYTES ABSOLUTE AUTO 1.89 K/mm3 (0.84-5.20); LYMPHOCYTES PERCENT AUTO 12 % (21-46); MONOCYTES ABSOLUTE AUTO 1.31 K/mm3 (0.16-1.47); MONOCYTES PERCENT AUTO 8 % (4-13); Mean Corpuscular HGB 26.9 pg (26.0-34.0); Mean Corpuscular HGB Conc 29.2 g/dL (31.5-36.5); Mean Corpuscular Volume 92 fL (80-100); Mean Platelet Volume 9.9 fL (9.1-12.4); NEUTROPHILS ABSOLUTE AUTO 12.51 K/mm3 (1.96-9.15); NEUTROPHILS PERCENT AUTO 78 % (41-73); Platelet Count 430 K/mm3 (150-400); RDW Coefficient Variation 16.3 % (11.7-14.2); RDW Standard Deviation 55.4 fL (35.1-46.3); White Blood Cell Count 15.99 K/mm3 (4.00-11.30)
[2020-07-30 05:37] LABS: Anion Gap 4 mmol/L (6-16); Blood Urea Nitrogen 7 mg/dL (8-24); Bun/Creatinine Ratio 8.5 (12.0-20.0); CO2, Blood 27 mmol/L (21-32); Calcium, Blood 7.9 mg/dL (8.5-10.1); Chloride, Blood 113 mmol/L (98-108); Creatinine, Blood 0.83 mg/dL (0.60-1.20); Glomerular Filtration Rate >60 (60-); Glucose, Blood 114 mg/dL (70-99); Potassium, Blood 3.8 mmol/L (3.5-5.5); Sodium, Blood 144 mmol/L (136-145)
--- NOTE | 2020-07-30 07:14 | NUR ---
SHIFT SUMMARY PATIENT ALERT AND ORIENTED. PATIENT IN A LOT OF PAIN OVERNIGHT AND MEDICATED PER EMAR. PATIENT ABLE TO GET SOME SLEEP OVERNIGHT. IV PATENT AND INFUSING WITH NORMAL SALINE AT 100 ML/HR. BED IN LOWEST POSITION WITH WHEELS LOCKED. CALL LIGHT WITHIN REACH. REPORT GIVEN TO ONCOMING RN.
--- NOTE | 2020-07-30 17:51 | NUR ---
PT AOX4 AND COOPERATIVE OF CARE. PT HAS NEEDED PAIN NEEDED PER EMAR SOON MEDICATION IS DUE. PT STATES HE GET NO REAL GOOD LET UP IN PAIN PAIN MEDS ARE BEING ALTERNATED TO HELP COVER HIM. PT IS RESTING IN BED AT THIS TIME WITH CALL LIGHT WITHIN REACH WILL CONTINUE TO MONITOR.
[2020-07-31 05:13] LABS: BASOPHILS ABSOLUTE AUTO 0.03 K/mm3 (0.00-0.23); BASOPHILS PERCENT AUTO 0 % (0-2); EOSINOPHILS ABSOLUTE AUTO 0.11 K/mm3 (0.00-0.68); EOSINOPHILS PERCENT AUTO 1 % (0-6); Hematocrit 28.6 % (37.0-53.0); Hemoglobin 8.6 g/dL (13.5-17.5); IMMATURE GRAN ABSOLUTE AUTO 0.08 K/mm3 (0.00-0.10); IMMATURE GRAN PERCENT AUTO 1 % (0-1); LYMPHOCYTES ABSOLUTE AUTO 1.96 K/mm3 (0.84-5.20); LYMPHOCYTES PERCENT AUTO 13 % (21-46); MONOCYTES ABSOLUTE AUTO 1.01 K/mm3 (0.16-1.47); MONOCYTES PERCENT AUTO 7 % (4-13); Mean Corpuscular HGB 27.5 pg (26.0-34.0); Mean Corpuscular HGB Conc 30.1 g/dL (31.5-36.5); Mean Corpuscular Volume 91 fL (80-100); Mean Platelet Volume 10.1 fL (9.1-12.4); NEUTROPHILS ABSOLUTE AUTO 12.45 K/mm3 (1.96-9.15); NEUTROPHILS PERCENT AUTO 80 % (41-73); Platelet Count 402 K/mm3 (150-400); RDW Coefficient Variation 16.1 % (11.7-14.2); RDW Standard Deviation 54.3 fL (35.1-46.3); Red Blood Cell Count 3.13 M/mm3 (4.30-5.90); White Blood Cell Count 15.64 K/mm3 (4.00-11.30)
[2020-07-31 05:37] LABS: Anion Gap 7 mmol/L (6-16); Blood Urea Nitrogen 7 mg/dL (8-24); Bun/Creatinine Ratio 7.5 (12.0-20.0); CO2, Blood 25 mmol/L (21-32); Calcium, Blood 7.6 mg/dL (8.5-10.1); Chloride, Blood 114 mmol/L (98-108); Creatinine, Blood 0.93 mg/dL (0.60-1.20); Glomerular Filtration Rate >60 (60-); Glucose, Blood 119 mg/dL (70-99); Potassium, Blood 3.4 mmol/L (3.5-5.5); Sodium, Blood 146 mmol/L (136-145)
--- NOTE | 2020-07-31 06:09 | NUR ---
SHIFT SUMMARY PATIENT ALERT AND ORIENTED. STAYED IN HIS BED ALL NIGHT ATTEMPTING TO GET A GOOD NIGHT'S SLEEP. PATIENT MEDICATED PER EMAR FOR PAIN. IV PATENT AND INFUSING WITH NORMAL SALINE AT 100 ML/HR. BED IN LOWEST POSITION WITH WHEELS LOCKED. CALL LIGHT WITHIN REACH. REPORT GIVEN TO ONCOMING RN.
[2020-07-31] MEDS ORDERED: PROBIOTIC PO ×2 (12:03)
[2020-07-31] MEDS ORDERED: ACET325 PO ×2 (12:03)
--- NOTE | 2020-07-31 13:57 | NUR ---
DISCHARGE NOTE- PT WAS GIVEN VERBAL AND WRITTEN DISCHARGE INSTRUCTIONS AND ACKNOWLEDGED UNDERSTANDING OF THEM. PT WAS MEDICATED FOR PAIN PRIOR TO DISCHARGE AND IV WAS DC'D. PT WAS TAKEN OUT VIA WC BU THE TRANSMISSION TECHNICIAN WAS PRESENT FOR THE DISCHARGE TEACHING.
== END 2020-07-31 13:55 | disposition home health service (06) | DRG 386 ==
LOC: ER 18:39 → MEDS 22:32
PROVIDERS: Family Medicine; Physician Assistant; ADMIT Family Medicine
DX: K50.80 Crohn's disease of both small and large intestine without complications (principal); K63.2 Fistula of intestine; F17.210 Nicotine dependence, cigarettes, uncomplicated; M81.0 Age-related osteoporosis without current pathological fracture; I10 Essential (primary) hypertension; Z90.49 Acquired absence of other specified parts of digestive tract; K20.0 Eosinophilic esophagitis; D63.8 Anemia in other chronic diseases classified elsewhere; D47.3 Essential (hemorrhagic) thrombocythemia
CPT/HCPCS: 0097U; 36415; 74176; 80048; 80053; 83605; 83690; 85025; 87040; 96361; 96374; 96375; 99285-25; A9270; A9270-GY; C9113; J0744; J1170; J2920; J3010; J7030; J7512

== ENCOUNTER 2020-08-08 11:35 | Emergency (ER) | payer OTHER ==
[~2020-08-08] VITALS: Ht 170.2 cm; Wt 65.8 kg
[~2020-08-08 11:35] MED LIST changes: +Cymbalta30 MG PO; +Deltasone 10 mg10 MG PO; +PROBIOTIC PO; +TAMSULOSIN HCL0.4 M1 PO; +Vitamin B-121000 MCG PO
[2020-08-08 12:23] LABS: BASOPHILS ABSOLUTE AUTO 0.07 K/mm3 (0.00-0.23); BASOPHILS PERCENT AUTO 0 % (0-2); EOSINOPHILS ABSOLUTE AUTO 0.32 K/mm3 (0.00-0.68); EOSINOPHILS PERCENT AUTO 1 % (0-6); Hematocrit 31.1 % (37.0-53.0); Hemoglobin 9.5 g/dL (13.5-17.5); IMMATURE GRAN PERCENT AUTO 1 % (0-1); LYMPHOCYTES ABSOLUTE AUTO 1.64 K/mm3 (0.84-5.20); LYMPHOCYTES PERCENT AUTO 7 % (21-46); MONOCYTES PERCENT AUTO 5 % (4-13); Mean Corpuscular HGB 27.1 pg (26.0-34.0); Mean Corpuscular HGB Conc 30.5 g/dL (31.5-36.5); Mean Corpuscular Volume 89 fL (80-100); Mean Platelet Volume 9.1 fL (9.1-12.4); NEUTROPHILS PERCENT AUTO 85 % (41-73); Platelet Count 456 K/mm3 (150-400); RDW Coefficient Variation 16.7 % (11.7-14.2); RDW Standard Deviation 53.8 fL (35.1-46.3); White Blood Cell Count 23.23 K/mm3 (4.00-11.30)
[2020-08-08 12:45] LABS: Alanine Aminotransfer (ALT/SGP 16 U/L (12-78); Albumin/Globulin Ratio 0.9 (0.8-1.8); Alk Phos 74 U/L (50-136); Anion Gap 4 mmol/L (6-16); Aspartate Aminotrans (AST/SGOT 5 U/L (12-37); Bilirubin, Total 0.1 mg/dL (0.1-1.0); Blood Urea Nitrogen 12 mg/dL (8-24); CO2, Blood 29 mmol/L (21-32); Chloride, Blood 109 mmol/L (98-108); Creatinine, Blood 0.71 mg/dL (0.60-1.20); Globulin, Blood 3.2 g/dL (2.2-4.0); Glomerular Filtration Rate >60 (60-); Glucose, Blood 178 mg/dL (70-99); Potassium, Blood 4.2 mmol/L (3.5-5.5); Sodium, Blood 142 mmol/L (136-145); Total Protein, Blood 6.2 g/dL (6.4-8.2)
[2020-08-08] MEDS ORDERED: HYDACE10B PO (14:09)
== END 2020-08-08 14:49 | disposition home or self-care (01) ==
LOC: ER 11:35
PROVIDERS: Emergency Medicine
DX: K63.2 Fistula of intestine (principal); I10 Essential (primary) hypertension; F17.200 Nicotine dependence, unspecified, uncomplicated; Z88.2 Allergy status to sulfonamides; Z88.8 Allergy status to other drugs, medicaments and biological substances; Z88.6 Allergy status to analgesic agent; Z91.041 Radiographic dye allergy status; Z79.899 Other long term (current) drug therapy
CPT/HCPCS: 36415; 74176; 80053; 83690; 85025; 96361; 96374; 96375; 96376; 99284-25; J1170; J1200; J2930; J7030

== ENCOUNTER → 2020-08-16 | Outpatient (CLI) | payer OTHER ==
[~2020-08-16] MED LIST changes: +DULO30 PO; +Flexeril5 MG PO; +HYDACE10B PO; +Vitamin D2000 UNIT PO
== END | disposition home or self-care (01) ==
LOC: LAB SHORT 17:19 → LAB 17:19
DX: K50.813 Crohn's disease of both small and large intestine with fistula (principal); N18.3 Chronic kidney disease, stage 3 (moderate)
CPT/HCPCS: 87070; 87075; 87205

== ENCOUNTER 2020-09-04 16:27 | Emergency (ER) | payer OTHER ==
[~2020-09-04] VITALS: Ht 170.2 cm; Wt 62.1 kg
[~2020-09-04 16:27] MED LIST changes: -DULO30 PO; -Flexeril5 MG PO; -VALS80 PO; -Vitamin D2000 UNIT PO
[2020-09-04 17:07] LABS: BASOPHILS ABSOLUTE AUTO 0.11 K/mm3 (0.00-0.23); BASOPHILS PERCENT AUTO 1 % (0-2); EOSINOPHILS ABSOLUTE AUTO 0.31 K/mm3 (0.00-0.68); EOSINOPHILS PERCENT AUTO 2 % (0-6); Hematocrit 34.1 % (37.0-53.0); Hemoglobin 10.2 g/dL (13.5-17.5); IMMATURE GRAN ABSOLUTE AUTO 0.06 K/mm3 (0.00-0.10); IMMATURE GRAN PERCENT AUTO 0 % (0-1); LYMPHOCYTES ABSOLUTE AUTO 1.94 K/mm3 (0.84-5.20); LYMPHOCYTES PERCENT AUTO 13 % (21-46); MONOCYTES ABSOLUTE AUTO 0.91 K/mm3 (0.16-1.47); MONOCYTES PERCENT AUTO 6 % (4-13); Mean Corpuscular HGB 25.6 pg (26.0-34.0); Mean Corpuscular HGB Conc 29.9 g/dL (31.5-36.5); Mean Corpuscular Volume 86 fL (80-100); Mean Platelet Volume 9.2 fL (9.1-12.4); NEUTROPHILS ABSOLUTE AUTO 11.32 K/mm3 (1.96-9.15); NEUTROPHILS PERCENT AUTO 77 % (41-73); Platelet Count 601 K/mm3 (150-400); RDW Coefficient Variation 15.9 % (11.7-14.2); RDW Standard Deviation 49.8 fL (35.1-46.3); Red Blood Cell Count 3.98 M/mm3 (4.30-5.90); White Blood Cell Count 14.65 K/mm3 (4.00-11.30)
[2020-09-04 17:24] LABS: Alanine Aminotransfer (ALT/SGP 15 U/L (12-78); Albumin, Blood 3.2 g/dL (3.4-5.0); Albumin/Globulin Ratio 0.9 (0.8-1.8); Alk Phos 74 U/L (50-136); Anion Gap 9 mmol/L (6-16); Aspartate Aminotrans (AST/SGOT 6 U/L (12-37); Bilirubin, Total 0.1 mg/dL (0.1-1.0); Blood Urea Nitrogen 13 mg/dL (8-24); Bun/Creatinine Ratio 19.8 (12.0-20.0); CO2, Blood 24 mmol/L (21-32); Calcium, Blood 9.2 mg/dL (8.5-10.1); Chloride, Blood 115 mmol/L (98-108); Creatinine, Blood 0.66 mg/dL (0.60-1.20); Globulin, Blood 3.4 g/dL (2.2-4.0); Glomerular Filtration Rate >60 (60-); Glucose, Blood 132 mg/dL (70-99); Potassium, Blood 3.4 mmol/L (3.5-5.5); Sodium, Blood 148 mmol/L (136-145); Total Protein, Blood 6.6 g/dL (6.4-8.2)
[2020-09-04] MEDS ORDERED: Norco 5-325 Ta1 EACH PO (20:43)
== END 2020-09-04 21:24 | disposition home or self-care (01) ==
LOC: ER 16:27
PROVIDERS: Emergency Medicine
DX: K63.2 Fistula of intestine (principal); K50.90 Crohn's disease, unspecified, without complications; I10 Essential (primary) hypertension; F17.200 Nicotine dependence, unspecified, uncomplicated; Z88.2 Allergy status to sulfonamides; Z91.041 Radiographic dye allergy status; Z79.899 Other long term (current) drug therapy; Z88.8 Allergy status to other drugs, medicaments and biological substances; Z88.6 Allergy status to analgesic agent
CPT/HCPCS: 36415; 74176; 76705; 80053; 83690; 85025; 96374; 96375; 99284-25; A9270; J1170; J3010

== ENCOUNTER 2020-09-06 00:47 | Observation (INO) | payer OTHER ==
[~2020-09-06] VITALS: Ht 170.2 cm; Wt 63.5 kg
[2020-09-06 02:27] LABS: BASOPHILS ABSOLUTE AUTO 0.09 K/mm3 (0.00-0.23); BASOPHILS PERCENT AUTO 1 % (0-2); EOSINOPHILS ABSOLUTE AUTO 0.58 K/mm3 (0.00-0.68); EOSINOPHILS PERCENT AUTO 4 % (0-6); Hematocrit 33.4 % (37.0-53.0); Hemoglobin 9.7 g/dL (13.5-17.5); IMMATURE GRAN ABSOLUTE AUTO 0.06 K/mm3 (0.00-0.10); IMMATURE GRAN PERCENT AUTO 0 % (0-1); LYMPHOCYTES ABSOLUTE AUTO 2.16 K/mm3 (0.84-5.20); LYMPHOCYTES PERCENT AUTO 14 % (21-46); MONOCYTES ABSOLUTE AUTO 1.26 K/mm3 (0.16-1.47); MONOCYTES PERCENT AUTO 8 % (4-13); Mean Corpuscular HGB 25.3 pg (26.0-34.0); Mean Corpuscular Volume 87 fL (80-100); Mean Platelet Volume 9.2 fL (9.1-12.4); NEUTROPHILS ABSOLUTE AUTO 11.04 K/mm3 (1.96-9.15); NEUTROPHILS PERCENT AUTO 73 % (41-73); Platelet Count 548 K/mm3 (150-400); RDW Coefficient Variation 15.9 % (11.7-14.2); RDW Standard Deviation 50.8 fL (35.1-46.3); Red Blood Cell Count 3.84 M/mm3 (4.30-5.90); White Blood Cell Count 15.19 K/mm3 (4.00-11.30)
[2020-09-06 02:52] LABS: Alanine Aminotransfer (ALT/SGP 19 U/L (12-78); Albumin, Blood 3.2 g/dL (3.4-5.0); Albumin/Globulin Ratio 0.9 (0.8-1.8); Alk Phos 79 U/L (50-136); Anion Gap 5 mmol/L (6-16); Aspartate Aminotrans (AST/SGOT 9 U/L (12-37); Bilirubin, Total <0.1 mg/dL (0.1-1.0); Blood Urea Nitrogen 19 mg/dL (8-24); Bun/Creatinine Ratio 28.9 (12.0-20.0); CO2, Blood 28 mmol/L (21-32); Calcium, Blood 8.5 mg/dL (8.5-10.1); Chloride, Blood 113 mmol/L (98-108); Creatinine, Blood 0.66 mg/dL (0.60-1.20); Globulin, Blood 3.4 g/dL (2.2-4.0); Glomerular Filtration Rate >60 (60-); Glucose, Blood 91 mg/dL (70-99); Potassium, Blood 3.5 mmol/L (3.5-5.5); Sodium, Blood 146 mmol/L (136-145); Total Protein, Blood 6.6 g/dL (6.4-8.2)
[2020-09-06] MEDS ORDERED: OXYMORPHONE HCL5 MG PO ×2 (13:59→22:56)
[2020-09-06] MEDS ORDERED: Flexeril5 MG PO (14:00)
--- NOTE | 2020-09-06 17:49 | NUR ---
SHIFT SUMMARY SBAR REPORT FROM SUNDAR @0668. PT ARRIVED TO UNIT WITH AT BEDSIDE~1420. SEEN BY EDDIE AT BEDSIDE. PHOTOGRAPHS OF DRAINING ABD WOUND OBTAINED, PURULENT DRAINAGE PRESENT. REQUESTS WOUND CULTURES, MD NOTIFIED. AWAITING RESULTS OF CT WITH CONTRAST PRIOR TO FURTHER ORDERS. PO CONTRAST BEING SENT BY CT. PRE MEDS ORDERED FOR ONE HOUR PRIOR TO START OF BOWEL PREP.
[2020-09-06] MEDS ORDERED: VALS80 PO (20:18)
[2020-09-06] MEDS ORDERED: Vitamin D2000 UNIT PO (20:20)
--- NOTE | 2020-09-06 22:34 | NUR ---
TAKEN TO CT AND NOW BACK. NO COMPLAINTS VOICED. IVF INFUSING PER MD ORDERS - SEE MAR FOR DETAILS. CALL LIGHT IN REACH
[2020-09-06] MEDS ORDERED: DULO30 PO (22:58)
--- NOTE | 2020-09-07 02:59 | NUR ---
SHIFT SUMMARY HAS BEEN RESTING QUIETLY WITH EFW INTERRUPTIONS THIS SHIFT SINCE RETURNING FROM RADIOLOGY EARLIER. ISOLATION PRECAUTIONS MAINTAINED. CALL LIGHT IN REACH.
[2020-09-07 05:25] LABS: BASOPHILS ABSOLUTE AUTO 0.04 K/mm3 (0.00-0.23); BASOPHILS PERCENT AUTO 0 % (0-2); EOSINOPHILS ABSOLUTE AUTO 0.01 K/mm3 (0.00-0.68); EOSINOPHILS PERCENT AUTO 0 % (0-6); Hematocrit 33.9 % (37.0-53.0); Hemoglobin 9.9 g/dL (13.5-17.5); IMMATURE GRAN ABSOLUTE AUTO 0.04 K/mm3 (0.00-0.10); IMMATURE GRAN PERCENT AUTO 0 % (0-1); LYMPHOCYTES ABSOLUTE AUTO 0.84 K/mm3 (0.84-5.20); LYMPHOCYTES PERCENT AUTO 7 % (21-46); MONOCYTES ABSOLUTE AUTO 0.27 K/mm3 (0.16-1.47); MONOCYTES PERCENT AUTO 2 % (4-13); Mean Corpuscular HGB 24.9 pg (26.0-34.0); Mean Corpuscular HGB Conc 29.2 g/dL (31.5-36.5); Mean Corpuscular Volume 85 fL (80-100); Mean Platelet Volume 9.5 fL (9.1-12.4); NEUTROPHILS ABSOLUTE AUTO 10.26 K/mm3 (1.96-9.15); NEUTROPHILS PERCENT AUTO 90 % (41-73); Platelet Count 513 K/mm3 (150-400); RDW Coefficient Variation 15.4 % (11.7-14.2); Red Blood Cell Count 3.97 M/mm3 (4.30-5.90); White Blood Cell Count 11.46 K/mm3 (4.00-11.30)
[2020-09-07 05:45] LABS: Alanine Aminotransfer (ALT/SGP 21 U/L (12-78); Albumin, Blood 2.7 g/dL (3.4-5.0); Albumin/Globulin Ratio 0.9 (0.8-1.8); Alk Phos 86 U/L (50-136); Anion Gap 6 mmol/L (6-16); Aspartate Aminotrans (AST/SGOT 9 U/L (12-37); Bilirubin, Total 0.1 mg/dL (0.1-1.0); Blood Urea Nitrogen 9 mg/dL (8-24); Bun/Creatinine Ratio 14.9 (12.0-20.0); CO2, Blood 25 mmol/L (21-32); Calcium, Blood 8.2 mg/dL (8.5-10.1); Chloride, Blood 112 mmol/L (98-108); Glomerular Filtration Rate >60 (60-); Glucose, Blood 143 mg/dL (70-99); Potassium, Blood 4.2 mmol/L (3.5-5.5); Sodium, Blood 143 mmol/L (136-145); Total Protein, Blood 5.7 g/dL (6.4-8.2)
[2020-09-07] MEDS ORDERED: PROBIOTIC PO (11:27)
--- NOTE | 2020-09-07 13:44 | NUR ---
Patient is sitting up in bed and alert. Patient's spouse, Mari is bedside. 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 Patient speaks of his Sikhism belief system and how that drives his decisions. The toll his medical issues, starting at 7yrs old, has taken on his emotions and trust has been high. Patient responds well to conversation centered around God, the Bible and hope for the future. I normalize patient's experience, reinforce helpful attitudes and practices and provide emotional support, pastoral counselor education professor and prayer. Patient and Mari respond well and show signs of being encouraged. I will continue to remain available to patient and family.
--- NOTE | 2020-09-07 15:22 | NUR ---
DISCHARGE SUMMARY PT DC'D AT 1520 VIA CHEELCHAIR BY RICKIE, ACCOMPANIED PT. DISCHRGE PAPERS WERE REVIEWED WELL FOLLW UP APPOINTMENT. IV REMOVED WITH NO SIGNS OF INFECTION OR ABNORMALITIES NOTED. PT GATHERED BELONGINGS AND GOT DRESSED WITH ASSISTANCE FROM . PT REQUESTED PAIN MEDICATIONS PRIOR TO DC. DOSE WAS NOT DUE FOR A LITTLE WHILE LONGER, DISCUSSED WITH PROVIDER AND THEY DECIDED HE SHOULD JUST RESUME HIS HOME REGIMEN INSTEAD OF ANOTHER DOSE OF IV DILAUDID BEFORE DC.
--- NOTE | 2020-09-07 16:29 | NUR ---
PT TEACHING REGARDING HOME WOUND CARE PROVIDED BY , WELL SUPPLIES. HOME HEALTH REFERAL ALSO SET UP FOR WOUND CARE.
== END 2020-09-07 15:23 | disposition home or self-care (01) ==
LOC: ER 00:47 → ERHOLD 00:48 → MEDS 00:49 → ERHOLD 02:06 → SURS 02:06 → ER 02:06 → ERHOLD 02:06 → MEDS 05:04 → ERHOLD 05:04 → ER 05:04 → ERHOLD 05:43 → MEDS 14:15 → ERHOLD 14:15 → MEDS 14:16
PROVIDERS: Emergency Medicine; ADMIT Internal Medicine
DX: L02.211 Cutaneous abscess of abdominal wall (principal); K50.913 Crohn's disease, unspecified, with fistula; K80.20 Calculus of gallbladder without cholecystitis without obstruction; E87.0 Hyperosmolality and hypernatremia; G89.29 Other chronic pain; M54.9 Dorsalgia, unspecified; I10 Essential (primary) hypertension; D63.8 Anemia in other chronic diseases classified elsewhere; M81.0 Age-related osteoporosis without current pathological fracture; G43.909 Migraine, unspecified, not intractable, without status migrainosus; M06.9 Rheumatoid arthritis, unspecified; F17.210 Nicotine dependence, cigarettes, uncomplicated; F41.9 Anxiety disorder, unspecified; G47.00 Insomnia, unspecified; D50.9 Iron deficiency anemia, unspecified; F32.9 Major depressive disorder, single episode, unspecified; F43.10 Post-traumatic stress disorder, unspecified; K21.9 Gastro-esophageal reflux disease without esophagitis; M79.7 Fibromyalgia; Z88.2 Allergy status to sulfonamides; Z88.6 Allergy status to analgesic agent; Z88.8 Allergy status to other drugs, medicaments and biological substances; Z91.041 Radiographic dye allergy status; Z79.899 Other long term (current) drug therapy; Z93.3 Colostomy status; Z23 Encounter for immunization
CPT/HCPCS: 36415; 74177; 80053; 83605; 85025; 87015; 87040; 87045; 87046; 87205; 87899; 96361; 96365; 96375; 96376; 99284-25; A9270-GY; G0378; J0295; J1170; J2405; J2543; J3010; J7030; J7512; Q0163; Q9967

== ENCOUNTER 2020-10-03 09:46 | Emergency (ER) | payer OTHER ==
[~2020-10-03] VITALS: Ht 170.2 cm; Wt 62.6 kg
[~2020-10-03 09:46] MED LIST changes: -CLON.1 PO; -Cymbalta30 MG PO; +DULO30 PO; -Diovan160 MG PO; -Inderal40 MG PO; -TAMSULOSIN HCL0.4 M1 PO; -Vitamin B-121000 MCG PO; +Vitamin D2000 UNIT PO
[2020-10-03 10:49] LABS: BASOPHILS ABSOLUTE AUTO 0.12 K/mm3 (0.00-0.23); BASOPHILS PERCENT AUTO 1 % (0-2); EOSINOPHILS PERCENT AUTO 2 % (0-6); Hematocrit 28.6 % (37.0-53.0); Hemoglobin 8.5 g/dL (13.5-17.5); IMMATURE GRAN ABSOLUTE AUTO 0.06 K/mm3 (0.00-0.10); IMMATURE GRAN PERCENT AUTO 1 % (0-1); LYMPHOCYTES ABSOLUTE AUTO 1.21 K/mm3 (0.84-5.20); LYMPHOCYTES PERCENT AUTO 9 % (21-46); MONOCYTES PERCENT AUTO 5 % (4-13); Mean Corpuscular HGB 24.2 pg (26.0-34.0); Mean Corpuscular HGB Conc 29.7 g/dL (31.5-36.5); Mean Corpuscular Volume 82 fL (80-100); Mean Platelet Volume 8.9 fL (9.1-12.4); NEUTROPHILS ABSOLUTE AUTO 10.54 K/mm3 (1.96-9.15); NEUTROPHILS PERCENT AUTO 82 % (41-73); Platelet Count 689 K/mm3 (150-400); RDW Coefficient Variation 15.6 % (11.7-14.2); RDW Standard Deviation 46.3 fL (35.1-46.3); Red Blood Cell Count 3.51 M/mm3 (4.30-5.90); White Blood Cell Count 12.93 K/mm3 (4.00-11.30)
[2020-10-03 11:02] LABS: Alanine Aminotransfer (ALT/SGP 14 U/L (12-78); Albumin, Blood 3.2 g/dL (3.4-5.0); Albumin/Globulin Ratio 0.9 (0.8-1.8); Alk Phos 85 U/L (50-136); Anion Gap 5 mmol/L (6-16); Aspartate Aminotrans (AST/SGOT 12 U/L (12-37); Bilirubin, Total 0.1 mg/dL (0.1-1.0); Blood Urea Nitrogen 14 mg/dL (8-24); Bun/Creatinine Ratio 19.7 (12.0-20.0); CO2, Blood 29 mmol/L (21-32); Calcium, Blood 9.1 mg/dL (8.5-10.1); Chloride, Blood 108 mmol/L (98-108); Creatinine, Blood 0.71 mg/dL (0.60-1.20); Globulin, Blood 3.6 g/dL (2.2-4.0); Glomerular Filtration Rate >60 (60-); Glucose, Blood 126 mg/dL (70-99); Potassium, Blood 3.7 mmol/L (3.5-5.5); Sodium, Blood 142 mmol/L (136-145); Total Protein, Blood 6.8 g/dL (6.4-8.2)
[2020-10-03] MEDS ORDERED: TAMSULOSIN HCL0.4 M1 PO (14:20)
[2020-10-03] MEDS ORDERED: Cymbalta30 MG PO (14:21)
[2020-10-03] MEDS ORDERED: OXYMORPHONE HCL5 MG PO (14:22)
[2020-10-03] MEDS ORDERED: CYAN1000I IM (14:23)
[2020-10-03] MEDS ORDERED: TRAZ100 PO (14:23)
[2020-10-03] MEDS ORDERED: CLON.1 PO (14:24)
[2020-10-03] MEDS ORDERED: Inderal40 MG PO (14:24)
[2020-10-03] MEDS ORDERED: VALS80 PO (14:25)
[2020-10-03] MEDS ORDERED: Flexeril5 MG PO (14:26)
[2020-10-03] MEDS ORDERED: Diovan160 MG PO (15:04)
[2020-10-03] MEDS ORDERED: Veetids 500500 MG PO (15:08)
[2020-10-03] MEDS ORDERED: PROBIOTIC PO (15:12)
[2020-10-03] MEDS ORDERED: Percocet 5-3251 EACH PO (15:17)
[2020-10-03] MEDS ORDERED: OXYC15ER PO (15:47)
== END 2020-10-03 15:25 | disposition home or self-care (01) ==
LOC: ER 09:46
PROVIDERS: Physician Assistant
DX: K50.913 Crohn's disease, unspecified, with fistula (principal); K65.1 Peritoneal abscess; F17.200 Nicotine dependence, unspecified, uncomplicated; Z88.2 Allergy status to sulfonamides; Z91.041 Radiographic dye allergy status; Z88.5 Allergy status to narcotic agent; Z88.6 Allergy status to analgesic agent; Z79.899 Other long term (current) drug therapy
CPT/HCPCS: 36415; 74176; 80053; 85025; 96374; 96375; 99283-25; J1170; J2405

== ENCOUNTER 2021-01-04 09:36 | Observation (INO) | payer OTHER ==
[~2021-01-04] VITALS: Ht 170.2 cm; Wt 65.8 kg
[~2021-01-04 09:36] MED LIST changes: +Flexeril5 MG PO; +OXYC15ER PO; +VALS80 PO; +Veetids 500500 MG PO
[2021-01-04 10:10] LABS: BASOPHILS ABSOLUTE AUTO 0.05 K/mm3 (0.00-0.23); BASOPHILS PERCENT AUTO 0 % (0-2); EOSINOPHILS ABSOLUTE AUTO 0.57 K/mm3 (0.00-0.68); EOSINOPHILS PERCENT AUTO 5 % (0-6); Hematocrit 28.4 % (37.0-53.0); Hemoglobin 8.1 g/dL (13.5-17.5); IMMATURE GRAN ABSOLUTE AUTO 0.04 K/mm3 (0.00-0.10); IMMATURE GRAN PERCENT AUTO 0 % (0-1); LYMPHOCYTES ABSOLUTE AUTO 1.17 K/mm3 (0.84-5.20); LYMPHOCYTES PERCENT AUTO 10 % (21-46); MONOCYTES PERCENT AUTO 8 % (4-13); Mean Corpuscular HGB Conc 28.5 g/dL (31.5-36.5); Mean Corpuscular Volume 70 fL (80-100); Mean Platelet Volume 8.8 fL (9.1-12.4); NEUTROPHILS ABSOLUTE AUTO 8.83 K/mm3 (1.96-9.15); NEUTROPHILS PERCENT AUTO 77 % (41-73); Platelet Count 714 K/mm3 (150-400); RDW Coefficient Variation 17.4 % (11.7-14.2); Red Blood Cell Count 4.06 M/mm3 (4.30-5.90); White Blood Cell Count 11.56 K/mm3 (4.00-11.30)
[2021-01-04 10:21] LABS: Alanine Aminotransfer (ALT/SGP 58 U/L (12-78); Albumin/Globulin Ratio 1.2 (0.8-1.8); Alk Phos 90 U/L (50-136); Anion Gap 7 mmol/L (6-16); Aspartate Aminotrans (AST/SGOT 137 U/L (12-37); Bilirubin, Total 0.4 mg/dL (0.1-1.0); Blood Urea Nitrogen 22 mg/dL (8-24); Bun/Creatinine Ratio 23.8 (12.0-20.0); CO2, Blood 25 mmol/L (21-32); Chloride, Blood 107 mmol/L (98-108); Creatinine, Blood 0.92 mg/dL (0.60-1.20); Globulin, Blood 3.4 g/dL (2.2-4.0); Glomerular Filtration Rate >60 (60-); Glucose, Blood 94 mg/dL (70-99); Potassium, Blood 3.5 mmol/L (3.5-5.5); Sodium, Blood 139 mmol/L (136-145); Total Protein, Blood 7.4 g/dL (6.4-8.2)
[2021-01-04 12:16] LABS: Source, Urine Clean Catch
[2021-01-04] MEDS ORDERED: Inderal40 MG PO (12:28)
[2021-01-04] MEDS ORDERED: Cymbalta30 MG PO (12:28)
[2021-01-04] MEDS ORDERED: OXYMORPHONE HCL5 MG PO (12:28)
[2021-01-04] MEDS ORDERED: CLON.1 PO (12:28)
[2021-01-04] MEDS ORDERED: TAMSULOSIN HCL0.4 M1 PO (12:29)
[2021-01-04] MEDS ORDERED: TRAZ100 PO (12:29)
[2021-01-04 12:30] LABS: Appearance, Urine Clear (Clear); Bilirubin, Urine Neg (Neg); Blood, Urine 1+ (Neg); Color, Urine Yellow (P-Yellow); Glucose Qualitative, Urine Neg (Neg); Ketones, Urine Neg (Neg); Leukocyte Esterase, Urine Neg (Neg); Nitrite, Urine Neg (Neg); Protein, Urine 2+ (Neg); Specific Gravity, Urine 1.025 (1.003-1.022); Urobilinogen, Urine NORM (Normal)
[2021-01-04] MEDS ORDERED: VALS80 PO (12:30)
[2021-01-04] MEDS ORDERED: CYCLOBENZAPRINE5 MG PO (12:30)
[2021-01-04] MEDS ORDERED: OMEP20ER PO (12:31)
[2021-01-04 13:04] LABS: Mucus Light (0-Heavy)
[2021-01-04 13:05] LABS: Bacteria Few /hpf; Other Crystals Few /hpf; Squamous Epithelial Cells Few /hpf (Few)
[2021-01-04 13:59] LABS: Percent Saturation 2.7 % (20.0-50.0)
[2021-01-04 15:52] LABS: Hemoglobin 8.3 g/dL (13.5-17.5)
[2021-01-04 16:42] LABS: Influenza A, PCR NEGATIVE (NEGATIVE); Influenza B, PCR NEGATIVE (NEGATIVE); Resp Syncytial Virus, PCR NEGATIVE (NEGATIVE); SARS-Cov-2 (COVID-19) PCR, MMC NEGATIVE (NEGATIVE)
--- NOTE | 2021-01-04 18:31 | NUR ---
PATIENT IS ALERT AND OREINTED. HE C/O PAIN, TREATED PER EMAR. NO N/V SINCE HE HAS BEEN ON MEDICAL FLOOR. PATIENT HAS A WOUND ON HIS ABDOMEN, IT WAS CLEANED AND A NEW DRESSING PLACED. THE PATIENT ALSO HAS TWO WOUND ON HIS RIGHT BUTTOCKS WHICH ARE OPEN TO AIR. PATIENT IS EATING DINNER AT THIS TIME. WILL CONTINUE TO MONITOR
[2021-01-04 19:36] LABS: Hematocrit 28.6 % (37.0-53.0); Hemoglobin 8.1 g/dL (13.5-17.5)
--- NOTE | 2021-01-04 19:46 | NUR ---
TRANSFER OF CARE I WAS INFORMED BY 2 LAB TECHS THAT THE PT'S MENTAL STATUS SEEMED ALTERED WHEN THEY WENT TO DRAW HIS BLOOD. THEY INFORMED ME THAT THEY HAD PRIMITIVO HIS BLOOD IN THE ER AND HE WAS NOT "FALLING OVER" IN BED AT THAT TIME. ONE SHOW CARD LETTERER STATED SHE HAD TO "PICK HIS BODY UP TWICE WHILE SHE PRIMITIVO HIS BLOOD". SHE STATED THAT "HE KEPT DROOPING OVER". I WENT TO THE PT'S ROOM AND ASKED HIM ABOUT IT AND HE IMMEDIATELY BECAME AGITATED; CALLING THEM "LIARS". I DID SMELL A STRONG MARIJUANA SCENT AND I ASKED HIM IF THAT IS WHAT I SMELLED. HE BECAME EVEN MORE AGITATED. THE SITUATION WAS ESCALATING AND HE HAD EXITED HIS ROOM TO YELL AT ME, I INFORMED CHARGE AND I CALLED FOR SECURITY. IT WAS DECIDED FOR ME TO TRANSFER CARE OF THIS PT TO ANOTHER NURSE TO HOPEFULLY DE-ESCALATE THIS SITUATION.
--- NOTE | 2021-01-04 20:23 | NUR ---
TRANSFER OF CARE. REPORT TAKEN FROM RAUL GUTIERREZ. PATIENT HAVING INCREASED AGITATION. SECURITY NOTED IN ROOM AND CHARGE NURSE PRESENT TO HELP DE-ESCULATE PATIENT PRIOR TO TRANSFER. RN REPORTS PATIENT REFUSED NORMAL SALINE AND IV PROTONIX. TELEMETRY IS NOT IN PLACE PER TECH. PATIENT REPORTED IN BATHROOM PER RADIOLOGIC TECHNICIAN.
--- NOTE | 2021-01-04 20:37 | NUR ---
PATIENT IS NOT IN HIS ROOM. PERSONAL BELONGINGS TAKEN. CHARGE NURSE NOTIFIED.
--- NOTE | 2021-01-04 21:03 | NUR ---
SECURITY REPORTS PATIENT LEFT AMA. LEAVING HOSPITAL AT 20:00 AND LEFT IN A VEHICLE 20:26.
--- NOTE | 2021-01-04 22:50 | NUR ---
POWER SYSTEM DISPATCHER REPORTS AMA PATIENT CAME BACK TO GET IV DC AND POWER SYSTEM DISPATCHER DID.
--- NOTE | 2021-01-04 23:00 | NUR ---
HOSPITALIST [place] AYALA NOTIFED PATIENT LEFT AMA @ 20:00
== END 2021-01-04 20:00 | disposition left against medical advice (07) ==
LOC: ER 09:36 → MEDS 09:37 → ERHOLD 09:37 → MEDS 16:21
PROVIDERS: Emergency Medicine; Nurse Practitioner Acute Care; ADMIT Internal Medicine
DX: K92.0 Hematemesis (principal); K50.913 Crohn's disease, unspecified, with fistula; D63.8 Anemia in other chronic diseases classified elsewhere; D50.9 Iron deficiency anemia, unspecified; I10 Essential (primary) hypertension; N40.0 Benign prostatic hyperplasia without lower urinary tract symptoms; K21.9 Gastro-esophageal reflux disease without esophagitis; G89.4 Chronic pain syndrome; M06.9 Rheumatoid arthritis, unspecified; R74.01 Elevation of levels of liver transaminase levels; F17.210 Nicotine dependence, cigarettes, uncomplicated; Z20.822 Contact with and (suspected) exposure to COVID-19; Z88.2 Allergy status to sulfonamides; Z88.8 Allergy status to other drugs, medicaments and biological substances; Z88.6 Allergy status to analgesic agent; Z91.041 Radiographic dye allergy status; Z90.49 Acquired absence of other specified parts of digestive tract; Z91.14 Patient's other noncompliance with medication regimen; Z53.29 Procedure and treatment not carried out because of patient's decision for other reasons
CPT/HCPCS: 0241U; 36415; 80053; 81001; 82607; 82728; 82746; 83540; 83550; 83735; 85014; 85018; 85025; 86850; 86900; 86901; 87086; 93005; 93010; 96365; 96366; 96375; 96376; 99285-25; A9270; C9113; G0378; J2270; J7030

== ENCOUNTER 2021-01-22 08:41 | Emergency (ER) | payer OTHER ==
[~2021-01-22] VITALS: Ht 170.2 cm; Wt 63.5 kg
[~2021-01-22 08:41] MED LIST changes: +CLON.1 PO; +CYCLOBENZAPRINE5 MG PO; +Cymbalta30 MG PO; +Inderal40 MG PO; +OMEP20ER PO; +TAMSULOSIN HCL0.4 M1 PO
[2021-01-22 09:40] LABS: BASOPHILS ABSOLUTE AUTO 0.13 K/mm3 (0.00-0.23); BASOPHILS PERCENT AUTO 1 % (0-2); EOSINOPHILS ABSOLUTE AUTO 0.34 K/mm3 (0.00-0.68); EOSINOPHILS PERCENT AUTO 2 % (0-6); Hematocrit 31.5 % (37.0-53.0); Hemoglobin 8.8 g/dL (13.5-17.5); IMMATURE GRAN ABSOLUTE AUTO 0.07 K/mm3 (0.00-0.10); IMMATURE GRAN PERCENT AUTO 0 % (0-1); LYMPHOCYTES ABSOLUTE AUTO 1.33 K/mm3 (0.84-5.20); LYMPHOCYTES PERCENT AUTO 8 % (21-46); MONOCYTES PERCENT AUTO 7 % (4-13); Mean Corpuscular HGB Conc 27.9 g/dL (31.5-36.5); Mean Corpuscular Volume 72 fL (80-100); Mean Platelet Volume 9.4 fL (9.1-12.4); NEUTROPHILS ABSOLUTE AUTO 14.47 K/mm3 (1.96-9.15); NEUTROPHILS PERCENT AUTO 83 % (41-73); Platelet Count 725 K/mm3 (150-400); RDW Coefficient Variation 18.9 % (11.7-14.2); White Blood Cell Count 17.54 K/mm3 (4.00-11.30)
[2021-01-22 09:50] LABS: Alanine Aminotransfer (ALT/SGP 27 U/L (12-78); Albumin, Blood 3.4 g/dL (3.4-5.0); Albumin/Globulin Ratio 0.9 (0.8-1.8); Alk Phos 79 U/L (50-136); Anion Gap 5 mmol/L (6-16); Aspartate Aminotrans (AST/SGOT 19 U/L (12-37); Bilirubin, Total 0.2 mg/dL (0.1-1.0); Blood Urea Nitrogen 17 mg/dL (8-24); Bun/Creatinine Ratio 22.2 (12.0-20.0); CO2, Blood 27 mmol/L (21-32); Chloride, Blood 112 mmol/L (98-108); Creatinine, Blood 0.77 mg/dL (0.60-1.20); Globulin, Blood 3.6 g/dL (2.2-4.0); Glomerular Filtration Rate >60 (60-); Glucose, Blood 121 mg/dL (70-99); Potassium, Blood 4.4 mmol/L (3.5-5.5); Sodium, Blood 144 mmol/L (136-145)
[2021-01-22 11:23] LABS: Source, Urine Clean Catch
[2021-01-22] MEDS ORDERED: Flagyl500 MG PO (11:30)
[2021-01-22] MEDS ORDERED: Cipro500 MG PO (11:30)
[2021-01-22 11:53] LABS: Appearance, Urine Clear (Clear); Bilirubin, Urine Neg (Neg); Blood, Urine Neg (Neg); Color, Urine Yellow (P-Yellow); Glucose Qualitative, Urine Neg (Neg); Ketones, Urine Neg (Neg); Leukocyte Esterase, Urine Neg (Neg); Nitrite, Urine Neg (Neg); Protein, Urine Neg (Neg); Specific Gravity, Urine 1.025 (1.003-1.022); Urobilinogen, Urine NORM (Normal)
== END 2021-01-22 11:54 | disposition home or self-care (01) ==
LOC: ER 08:41
PROVIDERS: Physician Assistant
DX: K50.913 Crohn's disease, unspecified, with fistula (principal); Z79.899 Other long term (current) drug therapy; Z88.2 Allergy status to sulfonamides; Z88.8 Allergy status to other drugs, medicaments and biological substances; Z88.6 Allergy status to analgesic agent; Z91.041 Radiographic dye allergy status
CPT/HCPCS: 36415; 74176; 80053; 81003; 85025; 96361; 96374-59; 96375; 96376; 99285-25; J1170; J2270; J2405; J7030

== ENCOUNTER 2021-02-09 15:04 | Emergency (ER) | payer OTHER ==
[~2021-02-09] VITALS: Ht 170.2 cm; Wt 63.5 kg
[~2021-02-09 15:04] MED LIST changes: +Cipro500 MG PO
[2021-02-09 16:38] LABS: BASOPHILS ABSOLUTE AUTO 0.11 K/mm3 (0.00-0.23); BASOPHILS PERCENT AUTO 1 % (0-2); EOSINOPHILS ABSOLUTE AUTO 0.28 K/mm3 (0.00-0.68); EOSINOPHILS PERCENT AUTO 2 % (0-6); Hematocrit 29.5 % (37.0-53.0); Hemoglobin 8.5 g/dL (13.5-17.5); IMMATURE GRAN ABSOLUTE AUTO 0.06 K/mm3 (0.00-0.10); IMMATURE GRAN PERCENT AUTO 0 % (0-1); LYMPHOCYTES ABSOLUTE AUTO 2.02 K/mm3 (0.84-5.20); LYMPHOCYTES PERCENT AUTO 14 % (21-46); MONOCYTES ABSOLUTE AUTO 0.79 K/mm3 (0.16-1.47); MONOCYTES PERCENT AUTO 6 % (4-13); Mean Corpuscular HGB 20.1 pg (26.0-34.0); Mean Corpuscular HGB Conc 28.8 g/dL (31.5-36.5); Mean Corpuscular Volume 70 fL (80-100); NEUTROPHILS ABSOLUTE AUTO 10.94 K/mm3 (1.96-9.15); NEUTROPHILS PERCENT AUTO 77 % (41-73); Platelet Count 727 K/mm3 (150-400); RDW Coefficient Variation 18.7 % (11.7-14.2); RDW Standard Deviation 46.5 fL (35.1-46.3); Red Blood Cell Count 4.22 M/mm3 (4.30-5.90)
[2021-02-09 16:56] LABS: Anion Gap 7 mmol/L (6-16); Blood Urea Nitrogen 9 mg/dL (8-24); Bun/Creatinine Ratio 12.4 (12.0-20.0); CO2, Blood 26 mmol/L (21-32); Calcium, Blood 8.6 mg/dL (8.5-10.1); Chloride, Blood 109 mmol/L (98-108); Creatinine, Blood 0.73 mg/dL (0.60-1.20); Glomerular Filtration Rate >60 (60-); Glucose, Blood 111 mg/dL (70-99); Potassium, Blood 3.9 mmol/L (3.5-5.5); Sodium, Blood 142 mmol/L (136-145)
[2021-02-09] MEDS ORDERED: Vibramycin100 MG PO (19:31)
== END 2021-02-09 19:45 | disposition home or self-care (01) ==
LOC: ER 15:04
PROVIDERS: Physician Assistant
DX: L03.115 Cellulitis of right lower limb (principal); F17.210 Nicotine dependence, cigarettes, uncomplicated; Z88.2 Allergy status to sulfonamides; Z88.8 Allergy status to other drugs, medicaments and biological substances; Z88.6 Allergy status to analgesic agent; Z79.899 Other long term (current) drug therapy
CPT/HCPCS: 36415; 80048; 85025; 99283; A9270

== ENCOUNTER 2021-02-18 07:58 | Emergency (ER) | payer OTHER ==
[~2021-02-18] VITALS: Ht 170.2 cm; Wt 65.8 kg
[2021-02-18] MEDS ORDERED: FURO20 (08:18)
[2021-02-18 08:28] LABS: BASOPHILS PERCENT AUTO 1 % (0-2); EOSINOPHILS ABSOLUTE AUTO 0.41 K/mm3 (0.00-0.68); EOSINOPHILS PERCENT AUTO 3 % (0-6); Hematocrit 28.7 % (37.0-53.0); Hemoglobin 8.3 g/dL (13.5-17.5); IMMATURE GRAN ABSOLUTE AUTO 0.04 K/mm3 (0.00-0.10); IMMATURE GRAN PERCENT AUTO 0 % (0-1); LYMPHOCYTES ABSOLUTE AUTO 1.25 K/mm3 (0.84-5.20); LYMPHOCYTES PERCENT AUTO 11 % (21-46); MONOCYTES PERCENT AUTO 10 % (4-13); Mean Corpuscular HGB 20.2 pg (26.0-34.0); Mean Corpuscular HGB Conc 28.9 g/dL (31.5-36.5); Mean Corpuscular Volume 70 fL (80-100); Mean Platelet Volume 8.8 fL (9.1-12.4); NEUTROPHILS ABSOLUTE AUTO 8.91 K/mm3 (1.96-9.15); NEUTROPHILS PERCENT AUTO 75 % (41-73); Platelet Count 660 K/mm3 (150-400); RDW Coefficient Variation 18.7 % (11.7-14.2); RDW Standard Deviation 46.5 fL (35.1-46.3); White Blood Cell Count 11.91 K/mm3 (4.00-11.30)
[2021-02-18 08:40] LABS: Alanine Aminotransfer (ALT/SGP 15 U/L (12-78); Albumin/Globulin Ratio 0.8 (0.8-1.8); Alk Phos 70 U/L (50-136); Anion Gap 6 mmol/L (6-16); Aspartate Aminotrans (AST/SGOT 11 U/L (12-37); Bilirubin, Total 0.2 mg/dL (0.1-1.0); Blood Urea Nitrogen 13 mg/dL (8-24); Bun/Creatinine Ratio 19.6 (12.0-20.0); CO2, Blood 26 mmol/L (21-32); Calcium, Blood 9.2 mg/dL (8.5-10.1); Chloride, Blood 112 mmol/L (98-108); Creatinine, Blood 0.66 mg/dL (0.60-1.20); Globulin, Blood 3.6 g/dL (2.2-4.0); Glomerular Filtration Rate >60 (60-); Glucose, Blood 133 mg/dL (70-99); Potassium, Blood 4.3 mmol/L (3.5-5.5); Sodium, Blood 144 mmol/L (136-145); Total Protein, Blood 6.6 g/dL (6.4-8.2)
[2021-02-18 09:35] LABS: Source, Urine Voided
[2021-02-18 09:45] LABS: Appearance, Urine Clear (Clear); Bilirubin, Urine Neg (Neg); Blood, Urine Neg (Neg); Color, Urine Yellow (P-Yellow); Glucose Qualitative, Urine Neg (Neg); Ketones, Urine Neg (Neg); Leukocyte Esterase, Urine 1+ (Neg); Nitrite, Urine Neg (Neg); Protein, Urine Neg (Neg); Specific Gravity, Urine 1.015 (1.003-1.022); Urobilinogen, Urine NORM (Normal)
[2021-02-18 09:57] LABS: Bacteria Rare /hpf; Calcium Oxalate Crystals Many /hpf; Mucus Mod (0-Heavy); Red Blood Cells, Urine 0-2 /hpf (0-2); Squamous Epithelial Cells Rare /hpf (Few); White Blood Cells, Urine 0-2 /hpf (0-5)
[2021-02-18] MEDS ORDERED: TRAM50 PO (11:14)
[2021-02-18] MEDS ORDERED: AMOCLA875 PO (11:14)
[2021-02-18] MEDS ORDERED: DELTASONE20 MG PO (11:14)
== END 2021-02-18 11:45 | disposition home or self-care (01) ==
LOC: ER 07:58
PROVIDERS: Emergency Medicine
DX: K52.9 Noninfective gastroenteritis and colitis, unspecified (principal); F17.210 Nicotine dependence, cigarettes, uncomplicated; Z88.2 Allergy status to sulfonamides; Z88.6 Allergy status to analgesic agent; Z79.899 Other long term (current) drug therapy
CPT/HCPCS: 74177; 80053; 81001; 83690; 85025; 96374-59; 96375; 99284-25; A9270; J1200; J2405; J2930; J3010; Q9967

== ENCOUNTER 2021-02-23 14:25 | Emergency (ER) | payer OTHER ==
[~2021-02-23] VITALS: Ht 170.2 cm; Wt 63.5 kg
[~2021-02-23 14:25] MED LIST changes: +AMOCLA875 PO; +DELTASONE20 MG PO; +FURO20
[2021-02-23 15:37] LABS: BASOPHILS ABSOLUTE AUTO 0.11 K/mm3 (0.00-0.23); BASOPHILS PERCENT AUTO 1 % (0-2); EOSINOPHILS ABSOLUTE AUTO 1.03 K/mm3 (0.00-0.68); EOSINOPHILS PERCENT AUTO 5 % (0-6); Hematocrit 29.6 % (37.0-53.0); Hemoglobin 8.3 g/dL (13.5-17.5); IMMATURE GRAN ABSOLUTE AUTO 0.12 K/mm3 (0.00-0.10); IMMATURE GRAN PERCENT AUTO 1 % (0-1); LYMPHOCYTES ABSOLUTE AUTO 1.85 K/mm3 (0.84-5.20); LYMPHOCYTES PERCENT AUTO 8 % (21-46); MONOCYTES ABSOLUTE AUTO 1.95 K/mm3 (0.16-1.47); MONOCYTES PERCENT AUTO 9 % (4-13); Mean Corpuscular Volume 71 fL (80-100); Mean Platelet Volume 9.3 fL (9.1-12.4); NEUTROPHILS ABSOLUTE AUTO 17.39 K/mm3 (1.96-9.15); NEUTROPHILS PERCENT AUTO 78 % (41-73); Platelet Count 655 K/mm3 (150-400); RDW Coefficient Variation 18.5 % (11.7-14.2); RDW Standard Deviation 47.1 fL (35.1-46.3); Red Blood Cell Count 4.15 M/mm3 (4.30-5.90); White Blood Cell Count 22.45 K/mm3 (4.00-11.30)
[2021-02-23 15:48] LABS: Alanine Aminotransfer (ALT/SGP 35 U/L (12-78); Albumin, Blood 3.5 g/dL (3.4-5.0); Albumin/Globulin Ratio 0.9 (0.8-1.8); Alk Phos 83 U/L (50-136); Anion Gap 5 mmol/L (6-16); Aspartate Aminotrans (AST/SGOT 22 U/L (12-37); Bilirubin, Total 0.4 mg/dL (0.1-1.0); Blood Urea Nitrogen 20 mg/dL (8-24); Bun/Creatinine Ratio 26.9 (12.0-20.0); CO2, Blood 29 mmol/L (21-32); Calcium, Blood 8.9 mg/dL (8.5-10.1); Chloride, Blood 108 mmol/L (98-108); Creatinine, Blood 0.74 mg/dL (0.60-1.20); Globulin, Blood 3.7 g/dL (2.2-4.0); Glomerular Filtration Rate >60 (60-); Glucose, Blood 51 mg/dL (70-99); Potassium, Blood 4.1 mmol/L (3.5-5.5); Sodium, Blood 142 mmol/L (136-145); Total Protein, Blood 7.2 g/dL (6.4-8.2)
== END 2021-02-23 16:04 | disposition home or self-care (01) ==
LOC: ER 14:25
PROVIDERS: Physician Assistant
DX: K63.2 Fistula of intestine (principal); I10 Essential (primary) hypertension; K21.9 Gastro-esophageal reflux disease without esophagitis; F17.200 Nicotine dependence, unspecified, uncomplicated; Z88.2 Allergy status to sulfonamides; Z88.8 Allergy status to other drugs, medicaments and biological substances; Z88.6 Allergy status to analgesic agent; Z91.041 Radiographic dye allergy status; Z79.899 Other long term (current) drug therapy; Z79.52 Long term (current) use of systemic steroids
CPT/HCPCS: 74018; 80053; 83605; 85025; 87040; 93005; 93010; 96374; 96375; 99285-25; J2270; J2405; J7030

== ENCOUNTER 2021-04-09 02:51 | Inpatient (IN) | payer OTHER ==
[~2021-04-09] VITALS: Ht 167.6 cm; Wt 62.9 kg
[2021-04-09 04:05] LABS: BASOPHILS ABSOLUTE AUTO 0.09 K/mm3 (0.00-0.23); BASOPHILS PERCENT AUTO 1 % (0-2); EOSINOPHILS ABSOLUTE AUTO 1.01 K/mm3 (0.00-0.68); EOSINOPHILS PERCENT AUTO 8 % (0-6); Hematocrit 26.4 % (37.0-53.0); Hemoglobin 7.5 g/dL (13.5-17.5); IMMATURE GRAN ABSOLUTE AUTO 0.05 K/mm3 (0.00-0.10); IMMATURE GRAN PERCENT AUTO 0 % (0-1); LYMPHOCYTES ABSOLUTE AUTO 2.22 K/mm3 (0.84-5.20); LYMPHOCYTES PERCENT AUTO 18 % (21-46); MONOCYTES ABSOLUTE AUTO 1.08 K/mm3 (0.16-1.47); MONOCYTES PERCENT AUTO 9 % (4-13); Mean Corpuscular HGB 20.1 pg (26.0-34.0); Mean Corpuscular HGB Conc 28.4 g/dL (31.5-36.5); Mean Corpuscular Volume 71 fL (80-100); Mean Platelet Volume 8.8 fL (9.1-12.4); NEUTROPHILS ABSOLUTE AUTO 7.77 K/mm3 (1.96-9.15); NEUTROPHILS PERCENT AUTO 64 % (41-73); Platelet Count 598 K/mm3 (150-400); RDW Coefficient Variation 18.5 % (11.7-14.2); RDW Standard Deviation 46.1 fL (35.1-46.3); Red Blood Cell Count 3.74 M/mm3 (4.30-5.90); White Blood Cell Count 12.22 K/mm3 (4.00-11.30)
[2021-04-09 04:19] LABS: Alanine Aminotransfer (ALT/SGP 31 U/L (12-78); Albumin, Blood 3.6 g/dL (3.4-5.0); Albumin/Globulin Ratio 1.1 (0.8-1.8); Alk Phos 77 U/L (50-136); Anion Gap 5 mmol/L (6-16); Aspartate Aminotrans (AST/SGOT 39 U/L (12-37); Bilirubin, Total 0.2 mg/dL (0.1-1.0); Blood Urea Nitrogen 23 mg/dL (8-24); Bun/Creatinine Ratio 21.5 (12.0-20.0); CO2, Blood 26 mmol/L (21-32); Calcium, Blood 8.8 mg/dL (8.5-10.1); Chloride, Blood 107 mmol/L (98-108); Creatinine, Blood 1.07 mg/dL (0.60-1.20); Globulin, Blood 3.4 g/dL (2.2-4.0); Glomerular Filtration Rate >60 (60-); Glucose, Blood 96 mg/dL (70-99); Potassium, Blood 3.9 mmol/L (3.5-5.5); Sodium, Blood 138 mmol/L (136-145)
--- NOTE | 2021-04-09 09:17 | NUR ---
SBAR REPORT FROM ED RN
[2021-04-10 04:49] LABS: BASOPHILS ABSOLUTE AUTO 0.01 K/mm3 (0.00-0.23); BASOPHILS PERCENT AUTO 0 % (0-2); EOSINOPHILS PERCENT AUTO 0 % (0-6); Hematocrit 28.7 % (37.0-53.0); Hemoglobin 8.3 g/dL (13.5-17.5); IMMATURE GRAN ABSOLUTE AUTO 0.11 K/mm3 (0.00-0.10); IMMATURE GRAN PERCENT AUTO 1 % (0-1); LYMPHOCYTES ABSOLUTE AUTO 0.73 K/mm3 (0.84-5.20); LYMPHOCYTES PERCENT AUTO 5 % (21-46); MONOCYTES ABSOLUTE AUTO 0.39 K/mm3 (0.16-1.47); MONOCYTES PERCENT AUTO 3 % (4-13); Mean Corpuscular HGB Conc 28.9 g/dL (31.5-36.5); Mean Corpuscular Volume 73 fL (80-100); Mean Platelet Volume 8.9 fL (9.1-12.4); NEUTROPHILS ABSOLUTE AUTO 14.43 K/mm3 (1.96-9.15); NEUTROPHILS PERCENT AUTO 92 % (41-73); Platelet Count 458 K/mm3 (150-400); RDW Coefficient Variation 19.2 % (11.7-14.2); RDW Standard Deviation 49.8 fL (35.1-46.3); Red Blood Cell Count 3.96 M/mm3 (4.30-5.90); White Blood Cell Count 15.67 K/mm3 (4.00-11.30)
[2021-04-10 05:11] LABS: Alanine Aminotransfer (ALT/SGP 25 U/L (12-78); Albumin, Blood 2.8 g/dL (3.4-5.0); Albumin/Globulin Ratio 0.9 (0.8-1.8); Alk Phos 63 U/L (50-136); Anion Gap 3 mmol/L (6-16); Aspartate Aminotrans (AST/SGOT 17 U/L (12-37); Bilirubin, Total 0.2 mg/dL (0.1-1.0); Blood Urea Nitrogen 12 mg/dL (8-24); Bun/Creatinine Ratio 20.7 (12.0-20.0); CO2, Blood 27 mmol/L (21-32); Calcium, Blood 7.9 mg/dL (8.5-10.1); Chloride, Blood 107 mmol/L (98-108); Creatinine, Blood 0.58 mg/dL (0.60-1.20); Globulin, Blood 3.1 g/dL (2.2-4.0); Glomerular Filtration Rate >60 (60-); Glucose, Blood 178 mg/dL (70-99); Potassium, Blood 4.5 mmol/L (3.5-5.5); Sodium, Blood 137 mmol/L (136-145); Total Protein, Blood 5.9 g/dL (6.4-8.2)
--- NOTE | 2021-04-10 05:30 | NUR ---
SHIFT SUMMARY A/O, ABLE TO MAKE NEEDS KNOWN. COOPERATIVE WITH CARE. CALLS AND ANSWER QUESTIONS APPROPRIATELY. C/O PAIN/DISCOMFORT TO LOWER ABDOMEN/BACK; MEDICATED PER EMAR. INDEPENDENT IN ROOM. APPEARED TO REST OFF AND ON. NO ACUTE CHANGES NOTED OVERNIGHT. TELE RUNNING SR 60s. RECIEVED IV HYDRATION 1.5L. VSS/AFEBRILE. BED REMAINS IN LOWEST POSITION. CALL LIGHT AND BELONGINGS WITHIN REACH. CONTINUE WITH CURRENT PLAN OF CARE. REPORT TO ONCOMING RN.
--- NOTE | 2021-04-10 15:34 | NUR ---
Patient is sitting on EOB and alert. Patient tells me about his very involved medical history, about his family unit complications and about his personal struggles. I hear confession, and provide therapeutic listening and anxiety containment. Patient responds well and shows signs of increased peace. Spiritual care will continue to remain available.
--- NOTE | 2021-04-10 17:28 | NUR ---
Urbano and I have developed a good rapport over the years. I see him each time he is hospitalized. Today, he spoke at length about his recent separation from his . He was often tearful and responded well to theraputic listening and gentle family life counselor. He appeared to benefit from being heard and affirmed. I will continue to see Urbano as schedule permits.
--- NOTE | 2021-04-11 03:13 | NUR ---
PT with hx of severe crohnes disease with hx of multiple abd surgeries has blood transfusion 2 units PRBC several days ago. He says he had active GI bleed at home with multiple bloody stools. pt says 5 bms yesterday nonbloody & he wonders why. On IV steroids TID 60 mg with insommnia resulting. Chronic abd pain relieved by 30 mg MS IS q 4 prn & PRN fentanyl. Tolerating full liquid diet without nausea. 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 DREssing change after shower . [facility] PT [employer].
--- NOTE | 2021-04-11 17:56 | NUR ---
PT IS A/OX3, PLEASANT AND COOPERATIVE, THE PT IS UP IND IN HIS ROOM, PT APPEARS TO BE BREATHING EASILY ON RA, THE PT SPENT MOST OF THE DAY IN THE BATHROOM HAVING BM'S PER THE PT, THE PT REPORTED LOWER ABD PAIN T/O THE DAY, PT WAS MEDICATED FOR PAIN T/O THE DAY, THE PT DENIED ANY N/V TODAY, OR BLOODY STOOLS, PT SEEMS TO BE TOLERATING A FULL LIQUID DIET, CALL LIGHT IN REACH, WILL CONTINUE TO MONITOR AND ASSESS FOR CHANGES
--- NOTE | 2021-04-11 18:18 | NUR ---
Several attempts to meet with Urbano today. On each attempt, he was in bathroom, and asked that I return later. I will remain available.
--- NOTE | 2021-04-12 05:11 | NUR ---
46 year old Male with chronic abd problems continues to have multiple nonbloody stools continent of bowel & bladder & indep in room. Continues on IV Unasyn & tid IV steroids to treat colitis. He has chronic abd pain & it is controlled by fentanyl 50 mcg x 1 and MS IR 30 mg x 1 . On tele monitor with sinus bunny as low as 44 while sleeping & NSR in the 60s. Has chronic post surgical abd incision scarring with small open area draining small amt of serous fluid. Appetite good no nausea drank multiple ensure enlive.
[2021-04-12 15:36] LABS: Percent Saturation 3.7 % (20.0-50.0)
--- NOTE | 2021-04-12 18:01 | NUR ---
PT IS A/OX3, UP IND IN HIS ROOM. THE PT APPEARS TO BE BREATHING EASILY ON RA AT THIS TIME. THE PT WAS MEDICATED FOR ABD PAIN T/O THE DAY. THE PT DENIED NAUSEA AND HAS TOLERATED A FULL LIQUID DIET SO FAR TODAY, THE STARTED TO PASS BLOOD WITH HIS BOWEL MOVEMENTS TODAY A SMALL AMOUNT OF RED ANGELICA BLOOD WITH EACH BM, WITNESSED BY THIS RN, DR. LANGFORD IS AWARE. THE PTS ABD WOUND DRESSING WAS CHANGED USEING CLEAN TECHNIQUE, CALL LIGHT IN REACH, WILL CONTINUE TO MONITOR AND ASSESS FOR CHANGES
--- NOTE | 2021-04-12 20:59 | NUR ---
STORAGE BATTERY TESTER Anum Fiore called about hypertension & bradycardia & mild helpful effect of catapress 0.1 mg & sheduled antihypertensives to hold for pulse less than 55. Nurse notify to do hold scheduled antihypertensives for pulse less than 55 as written but may give IV hydalazine 10 mg IV Q 4 hrs PRN SBP greater than 160 as it does not effect pulse.
[2021-04-13 04:48] LABS: BASOPHILS ABSOLUTE AUTO 0.02 K/mm3 (0.00-0.23); BASOPHILS PERCENT AUTO 0 % (0-2); EOSINOPHILS PERCENT AUTO 0 % (0-6); Hematocrit 31.2 % (37.0-53.0); Hemoglobin 8.9 g/dL (13.5-17.5); IMMATURE GRAN ABSOLUTE AUTO 0.32 K/mm3 (0.00-0.10); IMMATURE GRAN PERCENT AUTO 2 % (0-1); LYMPHOCYTES ABSOLUTE AUTO 0.75 K/mm3 (0.84-5.20); LYMPHOCYTES PERCENT AUTO 5 % (21-46); MONOCYTES ABSOLUTE AUTO 0.65 K/mm3 (0.16-1.47); MONOCYTES PERCENT AUTO 4 % (4-13); Mean Corpuscular HGB 21.1 pg (26.0-34.0); Mean Corpuscular HGB Conc 28.5 g/dL (31.5-36.5); Mean Corpuscular Volume 74 fL (80-100); Mean Platelet Volume 9.1 fL (9.1-12.4); NEUTROPHILS ABSOLUTE AUTO 14.73 K/mm3 (1.96-9.15); NEUTROPHILS PERCENT AUTO 90 % (41-73); NRBC ABSOLUTE 0.03 K/mm3 (0.00-0.02); NRBC Auto 0.2 /100 WBC (0.0-0.2); Platelet Count 461 K/mm3 (150-400); RDW Coefficient Variation 21.4 % (11.7-14.2); RDW Standard Deviation 53.7 fL (35.1-46.3); Red Blood Cell Count 4.21 M/mm3 (4.30-5.90); White Blood Cell Count 16.47 K/mm3 (4.00-11.30)
--- NOTE | 2021-04-13 04:53 | NUR ---
PT has hyertension bradycardia down to 44 BPM. Antihypertensive hydralazine 10 mg given IV as well as catapress 0.1 mg po x 2 with helpful effect. Medicated several times with MSIR & fent 50 mcg x 2 for chronic abd pain with helpful effect. PT has some anxiety over relationship issues. Continues to tolearate diet but has reports of alverto blood mixed with brown stool. Asked PT to save stool for RN to see.
[2021-04-13 04:58] LABS: Anion Gap 1 mmol/L (6-16); Blood Urea Nitrogen 18 mg/dL (8-24); Bun/Creatinine Ratio 25.4 (12.0-20.0); CO2, Blood 36 mmol/L (21-32); Calcium, Blood 8.8 mg/dL (8.5-10.1); Chloride, Blood 106 mmol/L (98-108); Creatinine, Blood 0.71 mg/dL (0.60-1.20); Glomerular Filtration Rate >60 (60-); Glucose, Blood 133 mg/dL (70-99); Potassium, Blood 4.3 mmol/L (3.5-5.5); Sodium, Blood 143 mmol/L (136-145)
[2021-04-13 14:53] LABS: Thyroid Stimulating Hormone 0.194 uIU/mL (0.360-4.800); Uric Acid, Blood 5.3 mg/dL (3.5-7.2)
--- NOTE | 2021-04-13 19:17 | NUR ---
SHIFT SUMMARY NO ACUTE CHANGES NOTED TO PT THIS SHIFT, A&OX4, ABLE TO MAKE NEEDS KNOWN. PLEASANT AND COOPERATIVE TO CARE. MEDICATED FOR PAIN PER EMAR, NO C/O CP, SOB, OR N&V. PT INDEPENDENT IN THE ROOM. CONTINUES ON IV ABX, NO ASE NOTED. DR. SHORT CONSULTED W/ PT THIS SHIFT. PT'S SIGNIFICANT OTHER AT BEDSIDE THIS SHIFT. PT CALM AND RESTED IN ROOM T/O SHIFT, BED AT LOWEST POSITION. CALL LIGHT WITHIN REACH.
--- NOTE | 2021-04-14 05:00 | NUR ---
HTN + BRADYCARDIA MORNING VITALS PT SBP 204 WITH HR 37. PT ASYMPTOMATIC AND REPORTS FEELING FINE. PRN HYDRALAZINE ORDER STATES TO HOLD FOR HR >60 FOR SOME REASON SO CALLED DR SANDERS TO VERIFY. PER DR SANDERS, OK TO GIVE HYDRALAZINE AND TO MONITOR HR AT THIS POINT.
[2021-04-14 05:05] LABS: BASOPHILS ABSOLUTE AUTO 0.01 K/mm3 (0.00-0.23); BASOPHILS PERCENT AUTO 0 % (0-2); EOSINOPHILS PERCENT AUTO 0 % (0-6); Hematocrit 29.7 % (37.0-53.0); Hemoglobin 8.9 g/dL (13.5-17.5); IMMATURE GRAN ABSOLUTE AUTO 0.23 K/mm3 (0.00-0.10); IMMATURE GRAN PERCENT AUTO 2 % (0-1); LYMPHOCYTES ABSOLUTE AUTO 0.76 K/mm3 (0.84-5.20); LYMPHOCYTES PERCENT AUTO 5 % (21-46); MONOCYTES ABSOLUTE AUTO 0.66 K/mm3 (0.16-1.47); MONOCYTES PERCENT AUTO 4 % (4-13); Mean Corpuscular HGB 21.9 pg (26.0-34.0); Mean Corpuscular Volume 73 fL (80-100); Mean Platelet Volume 9.4 fL (9.1-12.4); NEUTROPHILS ABSOLUTE AUTO 13.33 K/mm3 (1.96-9.15); NEUTROPHILS PERCENT AUTO 89 % (41-73); NRBC ABSOLUTE 0.05 K/mm3 (0.00-0.02); NRBC Auto 0.3 /100 WBC (0.0-0.2); Platelet Count 447 K/mm3 (150-400); RDW Coefficient Variation 22.1 % (11.7-14.2); RDW Standard Deviation 53.5 fL (35.1-46.3); Red Blood Cell Count 4.07 M/mm3 (4.30-5.90); White Blood Cell Count 14.99 K/mm3 (4.00-11.30)
[2021-04-14 05:25] LABS: Alanine Aminotransfer (ALT/SGP 147 U/L (12-78); Albumin, Blood 2.7 g/dL (3.4-5.0); Albumin/Globulin Ratio 0.9 (0.8-1.8); Alk Phos 77 U/L (50-136); Anion Gap 3 mmol/L (6-16); Aspartate Aminotrans (AST/SGOT 57 U/L (12-37); Bilirubin, Total 0.2 mg/dL (0.1-1.0); Blood Urea Nitrogen 19 mg/dL (8-24); Bun/Creatinine Ratio 26.2 (12.0-20.0); CO2, Blood 34 mmol/L (21-32); Calcium, Blood 8.2 mg/dL (8.5-10.1); Chloride, Blood 104 mmol/L (98-108); Creatinine, Blood 0.73 mg/dL (0.60-1.20); Globulin, Blood 2.9 g/dL (2.2-4.0); Glomerular Filtration Rate >60 (60-); Glucose, Blood 117 mg/dL (70-99); Potassium, Blood 3.8 mmol/L (3.5-5.5); Sodium, Blood 141 mmol/L (136-145); Total Protein, Blood 5.6 g/dL (6.4-8.2)
--- NOTE | 2021-04-14 06:31 | NUR ---
SALES EX[employer]UTIVE INSURANCE SUMMARY PT AAOX4 AND INDEPENDENT. BP AND HR IMPROVED THIS AM AFTER IV HYDRALAZINE GIVEN, SEE PREVIOUS NOTE. PT DENIES BLOODY STOOLS TONIGHT AND HGB STABLE AT 8.9. 24 HR URINE COLLECTION TO CONTINUE UNTIL 184 TONIGHT. SBP NOW 120'S AND HR 50'S. WILL CONTINUE TO MONITOR.
--- NOTE | 2021-04-14 18:05 | NUR ---
SHIFT SUMMARY PT A&OX4, ABLE TO MAKE NEEDS KNOWN, PLEASANT AND COOPERATIVE TO CARE. PT MEDICATED FOR GENERALIZED BODY PAIN AND ABDOMINAL PAIN, PT REPORTS CURRENT PAIN REGIMEN HAS BEEN EFFECTIVE IN CONTROLLING HIS PAIN. PT DENIES CP, SOB, OR N&V. PT CONTINUES ON IV ABX ORDERED, NO ASE NOTED. NO ACUTE CHANGES NOTED TO PT THIS SHIFT. BED AT LOWEST POSITION. CALL LIGHT WITHIN REACH.
[2021-04-14 19:30] LABS: Protein, Urine Quantitative 15.8 mg/dL (0.0-11.9)
[2021-04-15 04:47] LABS: BASOPHILS ABSOLUTE AUTO 0.01 K/mm3 (0.00-0.23); BASOPHILS PERCENT AUTO 0 % (0-2); EOSINOPHILS PERCENT AUTO 0 % (0-6); Hematocrit 29.5 % (37.0-53.0); Hemoglobin 8.7 g/dL (13.5-17.5); IMMATURE GRAN ABSOLUTE AUTO 0.18 K/mm3 (0.00-0.10); IMMATURE GRAN PERCENT AUTO 1 % (0-1); LYMPHOCYTES ABSOLUTE AUTO 0.79 K/mm3 (0.84-5.20); LYMPHOCYTES PERCENT AUTO 5 % (21-46); MONOCYTES PERCENT AUTO 5 % (4-13); Mean Corpuscular HGB 21.5 pg (26.0-34.0); Mean Corpuscular HGB Conc 29.5 g/dL (31.5-36.5); Mean Corpuscular Volume 73 fL (80-100); Mean Platelet Volume 9.2 fL (9.1-12.4); NEUTROPHILS ABSOLUTE AUTO 13.75 K/mm3 (1.96-9.15); NEUTROPHILS PERCENT AUTO 89 % (41-73); NRBC ABSOLUTE 0.03 K/mm3 (0.00-0.02); NRBC Auto 0.2 /100 WBC (0.0-0.2); Platelet Count 433 K/mm3 (150-400); RDW Coefficient Variation 22.6 % (11.7-14.2); RDW Standard Deviation 54.2 fL (35.1-46.3); Red Blood Cell Count 4.04 M/mm3 (4.30-5.90); White Blood Cell Count 15.43 K/mm3 (4.00-11.30)
[2021-04-15 05:09] LABS: Alanine Aminotransfer (ALT/SGP 100 U/L (12-78); Albumin, Blood 2.6 g/dL (3.4-5.0); Alk Phos 68 U/L (50-136); Anion Gap 3 mmol/L (6-16); Aspartate Aminotrans (AST/SGOT 11 U/L (12-37); Bilirubin, Total 0.2 mg/dL (0.1-1.0); Blood Urea Nitrogen 18 mg/dL (8-24); Bun/Creatinine Ratio 24.3 (12.0-20.0); CO2, Blood 34 mmol/L (21-32); Calcium, Blood 8.1 mg/dL (8.5-10.1); Chloride, Blood 103 mmol/L (98-108); Creatinine, Blood 0.74 mg/dL (0.60-1.20); Globulin, Blood 2.7 g/dL (2.2-4.0); Glomerular Filtration Rate >60 (60-); Glucose, Blood 122 mg/dL (70-99); Magnesium, Blood 2.4 mg/dL (1.6-2.4); Phosphorus, Blood 4.4 mg/dL (2.5-4.9); Potassium, Blood 4.2 mmol/L (3.5-5.5); Sodium, Blood 140 mmol/L (136-145); Total Protein, Blood 5.3 g/dL (6.4-8.2)
--- NOTE | 2021-04-15 06:07 | NUR ---
MANAGER ASSISTED LIVING SUMMARY NO ACUTE CHANGES THIS SHIFT. PT AAOX4 AND INDEPENDENT IN ROOM. MEDICATED FOR PAIN WITH PO MORPHINE PER EMAR, FENTANYL GIVEN X1 FOR BREAKTHROUGH PAIN. PT REMAINS HYPERTENSIVE AT TIMES TODAY WITH HIGH SBP OF 190'S, GIVEN PRN HYDRALAZINE. WILL CONTINUE TO MONITOR.
--- NOTE | 2021-04-15 17:39 | NUR ---
SHIFT SUMMARY PT ALERT, INDEPENDENT IN THE ROOM. PT C/O ABD PAIN AND STATED "BONE PAIN" HE STATED THAT HE IS THINKING THAT IT IS A RXN OF THE IRON IV; AWARE AND DISCUSSED AT BEDSIDE. PT ON RA AND NO SOB. DENIES CP. PT ALSO WANTS A REFERRAL TO [facility] ON HIS SURGEON UPON DISCHARGE. PT TOLERATING DIET. MEDICATED FOR HEADACHE ONCE. BED IS IN THE LOWEST POSITION AND CALL LIGHT WITHIN REACH
--- NOTE | 2021-04-16 04:50 | NUR ---
SHIFT SUMMARY PT HAS RESTED WELL MOST OF THE NIGHT. MEDICATED FREQUENTLY FOR PAIN PER EMAR ORDERS ABOUT Q4HR. ABD TENDER WITH PALPATION. DRESSING IN PLACE TO ABD COVERING FISTULA. PT ASKED IF HE WAS STILL HAVING BLOODY STOOLS AND HE REPORTS THAT HIS STOOLS HAVE A LITTLE BIT BUT MUCH IMPROVED. PT APPETITE GOOD, HE IS TOLERARTING A FULL LIQUID DIET. IV ANTIBIOTICS AND SOLUMEDROL CONTINUED ORDERED. PT INDEPENDENT IN THE ROOM. PT HYPERTENSIVE UNCHANGED FROM PRIOR READINGS. PT A/OX4, PLESANT AND COOPERATIVE WITH CARE. BED IN LOWEST POSITION, CALL LIGHT WITHIN REACH.
[2021-04-16 04:58] LABS: Hematocrit 30.9 % (37.0-53.0); Hemoglobin 8.9 g/dL (13.5-17.5); Mean Corpuscular HGB 21.5 pg (26.0-34.0); Mean Corpuscular HGB Conc 28.8 g/dL (31.5-36.5); Mean Corpuscular Volume 75 fL (80-100); Mean Platelet Volume 9.7 fL (9.1-12.4); NRBC ABSOLUTE 0.02 K/mm3 (0.00-0.02); NRBC Auto 0.1 /100 WBC (0.0-0.2); Platelet Count 457 K/mm3 (150-400); RDW Coefficient Variation 23.9 % (11.7-14.2); RDW Standard Deviation 55.5 fL (35.1-46.3); Red Blood Cell Count 4.14 M/mm3 (4.30-5.90); White Blood Cell Count 17.08 K/mm3 (4.00-11.30)
[2021-04-16 05:27] LABS: Albumin, Blood 2.7 g/dL (3.4-5.0); Anion Gap 4 mmol/L (6-16); Blood Urea Nitrogen 22 mg/dL (8-24); Bun/Creatinine Ratio 33.5 (12.0-20.0); CO2, Blood 33 mmol/L (21-32); Calcium, Blood 8.1 mg/dL (8.5-10.1); Chloride, Blood 103 mmol/L (98-108); Creatinine, Blood 0.66 mg/dL (0.60-1.20); Glomerular Filtration Rate >60 (60-); Glucose, Blood 145 mg/dL (70-99); Magnesium, Blood 2.5 mg/dL (1.6-2.4); Phosphorus, Blood 4.3 mg/dL (2.5-4.9); Potassium, Blood 4.3 mmol/L (3.5-5.5); Sodium, Blood 140 mmol/L (136-145)
--- NOTE | 2021-04-16 17:54 | NUR ---
SHIFT SUMMARY PT ALERT AND INDEPENDENT IN THE ROOM. PT IS STILL VERY PAINFUL, MEDICATED PER EMAR. CHANGES ON PAIN MEDICATION PER DR. CALLED THE DR THIS AFTERNOON FOR PT MIGRAINE. PAIN MEDS GIVEN. PT IS STILL RECEIVING ABX AND IRON. PT DRESSING ON HIS ABD INTACT. BED IS IN THE LOWEST POSITION AND CALL LIGHT WITHIN REACH.
--- NOTE | 2021-04-17 04:18 | NUR ---
SHIFT SUMMARY PT HAS RESTED MOST OF THE NIGHT. CONTNUES TO REPORT ABD PAIN, MEDICATED PER EMAR ORDERS. PT IS INDEPENDENT IN THE ROOM, AND PERFOMS MOST OF HIS OWNS ADLS. VITALS ARE STABLE. ANTIBIOTICS PER ORDERS. NO ACUTE CHANGES OVERNIGHT. BED IN LOWEST POSITON, CALL LIGHT WITHIN REACH.
--- NOTE | 2021-04-17 18:07 | NUR ---
SHIFT SUMMARY PT IS AO. PT MEDICATED FOR PAIN X3 THIS SHIFT. PT DENIES N/V, SOB. PT IS INDEPENDENT IN ROOM. PT APPETITE IS GOOD. PT DRESSED OWN WOUNDS THIS SHIFT. PT HAD VISITOR THIS JADA WHO WAS SLIGHTLY CONFRONTATIONAL WITH STAFF AND REFUSED STAFF ENTRY INTO ROOM X2. EXPLANATION OF CARE RESOLVED THIS ISSUE. NEW IV PLACED THIS JADA. PLAN IS FOR POTENTIAL DC TOMORROW. PT IS IN ROOM, CALL LIGHT IN REACH, BED IN LOW POSITION.
[2021-04-18 03:52] LABS: Stool Occult Blood Guaiac 1 Pos (Neg)
[2021-04-18 05:22] LABS: Hematocrit 31.9 % (37.0-53.0); Hemoglobin 9.1 g/dL (13.5-17.5); Mean Corpuscular HGB 22.3 pg (26.0-34.0); Mean Corpuscular HGB Conc 28.5 g/dL (31.5-36.5); Mean Corpuscular Volume 78 fL (80-100); Mean Platelet Volume 9.5 fL (9.1-12.4); NRBC ABSOLUTE 0.04 K/mm3 (0.00-0.02); NRBC Auto 0.2 /100 WBC (0.0-0.2); Platelet Count 415 K/mm3 (150-400); RDW Standard Deviation 62.2 fL (35.1-46.3); Red Blood Cell Count 4.08 M/mm3 (4.30-5.90); White Blood Cell Count 22.13 K/mm3 (4.00-11.30)
--- NOTE | 2021-04-18 05:57 | NUR ---
SHIFT SUMMARY AOX4. DROWSY @TIMES. EYE LIDS DROOPY. VSS. DENIES N/V, SOB. REPORTS 7-08/04 ALLOVER PAIN. MEDICATED 1X c SCHEDULED 30MG MORPHINE & 2X c 0.5MG DILAUDID. PT CHANGED ABD DRESSING, SCANT AMOUNT PURULENT DRAINAGE FROM SM WOUND. PT HAD 2 LOOSE/LIQUID BROWN BM THIS SHIFT. SENT STOOL SAMPLE, CAME BACK + OCCULT. DR SHORT IN THIS AM, INCREASED CLONIDINE TO 0.3 TID. CALL LIGHT IN REACH. WILL MONITOR.
[2021-04-18 06:08] LABS: C-REACTIVE PROTEIN, EXT RANGE <0.290 mg/dL (0.000-0.300); Ferritin, Serum 123 ng/mL (26-388); Iron Serum 133 ug/dL (65-175); Magnesium, Blood 2.2 mg/dL (1.6-2.4); Total Iron Binding Capacity 378 ug/dL (250-450)
[2021-04-18 06:09] LABS: Alanine Aminotransfer (ALT/SGP 57 U/L (12-78); Albumin, Blood 2.7 g/dL (3.4-5.0); Albumin/Globulin Ratio 1.1 (0.8-1.8); Alk Phos 58 U/L (50-136); Anion Gap 5 mmol/L (6-16); Aspartate Aminotrans (AST/SGOT 8 U/L (12-37); Bilirubin, Total 0.2 mg/dL (0.1-1.0); Blood Urea Nitrogen 21 mg/dL (8-24); Bun/Creatinine Ratio 30.9 (12.0-20.0); CO2, Blood 31 mmol/L (21-32); Calcium, Blood 8.1 mg/dL (8.5-10.1); Chloride, Blood 103 mmol/L (98-108); Creatinine, Blood 0.68 mg/dL (0.60-1.20); Globulin, Blood 2.5 g/dL (2.2-4.0); Glomerular Filtration Rate >60 (60-); Glucose, Blood 110 mg/dL (70-99); Percent Saturation 35.2 % (20.0-50.0); Potassium, Blood 3.8 mmol/L (3.5-5.5); Sodium, Blood 139 mmol/L (136-145); Total Protein, Blood 5.2 g/dL (6.4-8.2)
[2021-04-18 08:09] LABS: METANEPHRINE, UR 94 ug/L (Undefined)
[2021-04-18] MEDS ORDERED: LOSA50 PO (10:03)
[2021-04-18] MEDS ORDERED: AMLO5 PO (10:04)
[2021-04-18] MEDS ORDERED: Nicoderm Cq1 EACH TOP (10:04)
[2021-04-18] MEDS ORDERED: Prednisone10 MG PO (10:07)
[2021-04-18] MEDS ORDERED: SPIR25 PO (10:07)
[2021-04-18] MEDS ORDERED: Catapres-Tts 11 EACH TOP (10:08)
[2021-04-18] MEDS ORDERED: AMOCLA500 PO (10:08)
--- NOTE | 2021-04-18 10:20 | NUR ---
WAITING TILL HE SHOWERS BEFORE PUTTING ON MED PATCHES.
--- NOTE | 2021-04-18 10:58 | NUR ---
Patient is in the DC process and expresses that he is feeling much better than when he arrived. I provide a prayer and blessing for him. He voices appreciation for the spiritual care department for their time and care.
--- NOTE | 2021-04-18 11:10 | NUR ---
REVIEW D'C. AWARE HAS MEDS AT PHARMACY AND REVIEW HOW/WHEN TO TAKE. ADVISED TO TAKE DAILY BLD PRESSURES AND TAKE TO HIS MD APPOINTMENT. AWARE TO CHANGE CATAPRES Q 7 DAYS. AWARE TO TAKE OFF NICOTINE PATCH IF HE IS GOING TO SMOKE AND WAIT FEW HOURS BEFORE SMOKING. IV D'C WITH NO SWELLING OR BRUISING. ANSWER ALL QUESTIONS. AWARE HAS F/U APPT 04/29 AT 11AM. PATIENT VERBALIZES UNDERSTANDING.IN W/C TO POV W/MOTHER DRIVING
[2021-04-20 04:11] LABS: CREATININE, URINE 52.6 mg/dL (Not Estab.)
== END 2021-04-18 11:20 | disposition home or self-care (01) | DRG 386 ==
LOC: ER 02:51 → MEDS 02:52
PROVIDERS: Emergency Medicine; Internal Medicine; Internal Medicine Nephrology; ADMIT Internal Medicine
DX: K50.913 Crohn's disease, unspecified, with fistula (principal); N17.9 Acute kidney failure, unspecified; D50.9 Iron deficiency anemia, unspecified; N40.0 Benign prostatic hyperplasia without lower urinary tract symptoms; I12.9 Hypertensive chronic kidney disease with stage 1 through stage 4 chronic kidney disease, or unspecified chronic kidney disease; K21.9 Gastro-esophageal reflux disease without esophagitis; F17.210 Nicotine dependence, cigarettes, uncomplicated; M06.9 Rheumatoid arthritis, unspecified; D63.1 Anemia in chronic kidney disease; G43.909 Migraine, unspecified, not intractable, without status migrainosus; N18.2 Chronic kidney disease, stage 2 (mild); G89.4 Chronic pain syndrome; E86.9 Volume depletion, unspecified; E88.09 Other disorders of plasma-protein metabolism, not elsewhere classified; Z90.49 Acquired absence of other specified parts of digestive tract; Z91.14 Patient's other noncompliance with medication regimen; Z88.2 Allergy status to sulfonamides; Z88.8 Allergy status to other drugs, medicaments and biological substances; Z88.6 Allergy status to analgesic agent; Z91.041 Radiographic dye allergy status; Z98.890 Other specified postprocedural states
CPT/HCPCS: 36415; 36430; 74176; 80048; 80053; 80069; 81050; 82272; 82530; 82570; 82607; 82728; 82746; 83540; 83550; 83605; 83690; 83735; 83835; 84100; 84145; 84156; 84443; 84550; 84585; 85025; 85027; 85651; 86140; 86850; 86900; 86901; 86923; 87040; 93306; 93975; 96361-59; 96365-59; 96375-59; 96376; 96376-59; 99284-25; A9270; G0378; J0295; J0360; J1170; J2543; J2916; J2920; J2930; J3010; J7030; J7050; J7512; P9016

== ENCOUNTER → 2021-05-02 | Outpatient (CLI) | payer OTHER ==
[~2021-05-02] MED LIST changes: +AMOCLA500 PO; +Catapres-Tts 11 EACH TOP; +Nicoderm Cq1 EACH TOP; +SPIR25 PO
[2021-05-04 14:15] LABS: Adenovirus F 40/41 Not Detected (NOT DETECT); Astrovirus Not Detected (NOT DETECT); Campylobacter Sp Not Detected (NOT DETECT); Cryptosporidium Not Detected (NOT DETECT); Cyclospora Cayetanensis Not Detected (NOT DETECT); E. Coli O157 Not Detected (NOT DETECT); Entamoeba Histolytica Not Detected (NOT DETECT); Enteroaggregative E. coli-EAEC Not Detected (NOT DETECT); Enteropathogenic E. coli-EPEC Not Detected (NOT DETECT); Enterotoxigenic E. coli-ETEC Not Detected (NOT DETECT); Giardia Lamblia Not Detected (NOT DETECT); Norovirus GI/GII Not Detected (NOT DETECT); Plesiomonas Shigelloides Not Detected (NOT DETECT); Rotavirus A Not Detected (NOT DETECT); Salmonella Sp Not Detected (NOT DETECT); Sapovirus Not Detected (NOT DETECT); Shiga Toxin-prod E. coli-STEC Not Detected (NOT DETECT); Shigella/Enteroin E. coli-EIEC Not Detected (NOT DETECT); Vibrio Cholerae Not Detected (NOT DETECT); Vibrio Sp Not Detected (NOT DETECT); Yersinia Enterocolitica Not Detected (NOT DETECT)
== END ==
LOC: LAB SHORT 09:30 → PLD 09:30
PROVIDERS: Family Medicine
DX: R19.7 Diarrhea, unspecified (principal)
CPT/HCPCS: 0097U

== ENCOUNTER 2021-10-16 12:25 | Emergency (ER) | payer OTHER ==
[~2021-10-16] VITALS: Ht 170.2 cm; Wt 57.1 kg
[2021-10-16 13:20] LABS: BASOPHILS ABSOLUTE AUTO 0.08 K/mm3 (0.00-0.23); BASOPHILS PERCENT AUTO 0 % (0-2); EOSINOPHILS ABSOLUTE AUTO 0.14 K/mm3 (0.00-0.68); EOSINOPHILS PERCENT AUTO 1 % (0-6); Hemoglobin 6.9 g/dL (13.5-17.5); IMMATURE GRAN ABSOLUTE AUTO 0.15 K/mm3 (0.00-0.10); IMMATURE GRAN PERCENT AUTO 1 % (0-1); LYMPHOCYTES ABSOLUTE AUTO 1.55 K/mm3 (0.84-5.20); LYMPHOCYTES PERCENT AUTO 8 % (21-46); MONOCYTES ABSOLUTE AUTO 1.05 K/mm3 (0.16-1.47); MONOCYTES PERCENT AUTO 5 % (4-13); Mean Corpuscular HGB 20.1 pg (26.0-34.0); Mean Corpuscular HGB Conc 28.8 g/dL (31.5-36.5); Mean Corpuscular Volume 70 fL (80-100); Mean Platelet Volume 9.5 fL (9.1-12.4); NEUTROPHILS ABSOLUTE AUTO 16.74 K/mm3 (1.96-9.15); NEUTROPHILS PERCENT AUTO 85 % (41-73); Platelet Count 529 K/mm3 (150-400); RDW Coefficient Variation 18.8 % (11.7-14.2); RDW Standard Deviation 45.8 fL (35.1-46.3); Red Blood Cell Count 3.43 M/mm3 (4.30-5.90); White Blood Cell Count 19.71 K/mm3 (4.00-11.30)
[2021-10-16 13:33] LABS: Alanine Aminotransfer (ALT/SGP 28 U/L (12-78); Alk Phos 59 U/L (50-136); Anion Gap 4 mmol/L (6-16); Aspartate Aminotrans (AST/SGOT 11 U/L (12-37); Bilirubin, Total 0.3 mg/dL (0.1-1.0); Blood Urea Nitrogen 27 mg/dL (8-24); Bun/Creatinine Ratio 31.7 (12.0-20.0); CO2, Blood 27 mmol/L (21-32); Calcium, Blood 8.8 mg/dL (8.5-10.1); Chloride, Blood 109 mmol/L (98-108); Creatinine, Blood 0.85 mg/dL (0.60-1.20); Globulin, Blood 3.1 g/dL (2.2-4.0); Glomerular Filtration Rate >60 (60-); Glucose, Blood 166 mg/dL (70-99); Potassium, Blood 4.1 mmol/L (3.5-5.5); Sodium, Blood 140 mmol/L (136-145); Total Protein, Blood 6.1 g/dL (6.4-8.2); Troponin I <0.015 ng/mL (0.000-0.040)
[2021-10-16] MEDS ORDERED: PRED10 PO (21:33)
== END 2021-10-16 22:11 | disposition home or self-care (01) ==
LOC: ER 12:25
PROVIDERS: Physician Assistant
DX: K92.2 Gastrointestinal hemorrhage, unspecified (principal); K50.90 Crohn's disease, unspecified, without complications; Z88.8 Allergy status to other drugs, medicaments and biological substances; Z88.2 Allergy status to sulfonamides; Z88.6 Allergy status to analgesic agent; Z91.041 Radiographic dye allergy status; Z79.899 Other long term (current) drug therapy; D64.9 Anemia, unspecified; I10 Essential (primary) hypertension; K21.9 Gastro-esophageal reflux disease without esophagitis; M06.9 Rheumatoid arthritis, unspecified
CPT/HCPCS: 36415; 71045; 80053; 84484; 85025; 86850; 86900; 86901; 86923; 93005; 93010; J7030; P9016